=== PATIENT | female | born 1950 | race American Indian/Alaskan Native ===

== ENCOUNTER 2016-02-18 05:19 | Emergency (ER) | payer MEDICARE ==
[2016-02-18 06:36] LABS: Eosinophils % (Auto) 1.9 % (0.0-4.3); Hematocrit 33.4 % (30.3-42.9); Hemoglobin 10.2 gm/dl (10.1-14.3); Mean Corpuscular HGB Conc 31 % (30-34); Mean Corpuscular Hemoglobin 27 pg (28-32); Mean Corpuscular Volume 90 fl (79-97); Platelet Count 117 K/mm3 (140-440); Red Blood Count 3.73 M/mm3 (3.65-5.03); White Blood Count 4.6 K/mm3 (4.5-11.0)
[2016-02-18 06:52] LABS: BUN/Creatinine Ratio 6.14; Calcium 9.5 mg/dL (8.4-10.2); Chloride 94.1 mmol/L (98-107); Potassium 4.6 mmol/L (3.6-5.0)
[2016-02-18] MEDS ORDERED: NITROSTAT SL PRN (09:23)
[2016-02-18] MEDS ORDERED: SODIUM CHLORIDE FLUSH SYRINGE 10 ML IV PRN (09:23)
[2016-02-18] MEDS ORDERED: LASIX IV ONE (09:33)
[2016-02-18] MEDS ORDERED: SUBLIMAZE IV ONE (09:33)
--- NOTE | 2016-02-18 09:45 | XRay Report ---
CHEST 2 VIEWS: INDICATION: Shortness of breath. COMPARISON: 12/03/2015 FINDINGS: PA and lateral chest radiographs again demonstrate moderate cardiomegaly. Slight aortic knob microcalcifications. Well-expanded lungs, though slight costophrenic angle blunting again not excluded for pleural thickening versus minimal fluid. No large pleural effusions or CHF, however. Possible osteopenia. CONCLUSION: No significant interval change in cardiomegaly and few other incidental findings, as above. Thank you for the opportunity to participate in this patient's care.
[2016-02-18] MEDS ORDERED: BABY ASPIRIN PO ONE (10:31)
--- NOTE | 2016-02-18 10:31 | Emergency Department Report ---
HPI - General Chief Complaint: Dyspnea/Respdistress Time Seen by Provider: 02/18/16 08:35 - HPI HPI: The patient is a 65-year-old female with a history of end-stage renal disease, who presents for evaluation of chest pain and shortness of breath. The patient reports sudden onset of midsternal chest pain at 4 AM this morning, 4 hours prior to my evaluation. She states that her chest pain has been constant since onset, currently 8 out of 10 in severity, pressure-like in quality, and associated with moderate to severe constant shortness of breath. She has a secondary complaint of bilateral lower leg swelling which was present prior to chest pain and shortness of breath. The patient denies fever, syncope, hemoptysis, unilateral leg swelling, recent immobilization, history of DVT or PE , hx cancer. ED Past Medical Hx - Past Medical History Hx Hypertension: Yes Hx Heart Attack/AMI: No Hx Congestive Heart Failure: Yes Hx Diabetes: No Hx GERD: Yes Hx Liver Disease: Yes (abnormal liver function test, coagulopathy, mass on liver ) Hx Renal Disease: Yes (DIALYSIS MWF) Hx Arthritis: No Hx Asthma: No Hx COPD: No Hx HIV: Yes - Surgical History Hx Coronary Stent: No Hx Open Heart Surgery: No Hx Pacemaker: No Hx Internal Defibrillator: No Hx Cholecystectomy: No Hx Appendectomy: Yes Hx Breast Surgery: No Additional Surgical History: PD catheter. FISTULA LEFT ARM - Social History Smoking Status: Never Smoker Substance Use Type: None - Medications Home Medications: Home Medications Medication Instructions Recorded Confirmed Last Taken Type Promethazine [Phenergan TAB] 25 mg PO Q6H PRN 02/02/13 01/15/15 01/14/15 History lamiVUDine [Epivir] 0.5 tab PO QHS 02/02/13 01/15/15 01/14/15 History Pantoprazole [Protonix TAB] 40 mg PO BID #60 tablet 02/16/13 01/15/15 01/14/15 Rx Meclizine [Antivert] 25 mg PO TID PRN #20 tablet 09/03/13 01/15/15 01/14/15 Rx Furosemide 80 mg PO DAILY 06/09/14 01/15/15 01/14/15 History Efavirenz [Sustiva] 600 mg PO QHS capsule 11/02/14 01/15/15 01/14/15 Rx cloNIDine [Catapres] 0.3 mg PO Q6H tablet 11/02/14 01/15/15 01/14/15 Rx Labetalol [Normodyne TAB] 300 mg PO TID 30 Days 01/17/15 Unknown Rx NIFEdipine XL [Procardia Xl] 60 mg PO BID #60 tablet 01/17/15 Unknown Rx Terazosin [Hytrin] 5 mg PO BID #60 capsule 01/17/15 Unknown Rx ED Review of Systems ROS: Stated complaint: SOB/CHEST PAIN/SWOLLEN ANKLES Other details as noted in HPI Constitutional: denies: fever ENT: denies: throat or neck pain Respiratory: denies: cough, report shortness of breath Cardiovascular: reports chest pain Endocrine: denies unexplained weight loss or gain Gastrointestinal: denies: abdominal pain, nausea Genitourinary: denies: dysuria Musculoskeletal: reports leg swelling Skin: denies: rash Neurological: denies: headache Hematological/Lymphatic: denies: easy bleeding or easy bruising Psych: denies sadness or hopelessness Physical Exam - Physical Exam Vital Signs: Vital Signs 02/18/16 02/18/16 02/18/16 06:03 09:05 09:10 Temperature 98.3 F Pulse Rate 112 H 102 H Respiratory 20 16 18 Rate Blood Pressure 169/88 Blood Pressure 161/82 [Left] O2 Sat by Pulse 100 97 102 H Oximetry Physical Exam: General: well-nourished, well-developed, no acute distress Head: Normocephalic, atraumatic Eyes: normal sclera ENT: Mucous membranes are pink and moist Neck: trachea midline, neck supple, No neck stiffness, no cervical adenopathy Respiratory: Breath sounds equal bilaterally, no wheezing, rales, or rhonchi Cardio: S1 and S2 present, no murmurs, rubs, gallops, capillary refill is brisk Abdomen: Normoactive bowel sounds, soft abdomen, no rigidity, no guarding or rebound tenderness Chest WALL/Back: No tenderness to palpation of the chest wall, no CVA tenderness with percussion Musc: 1+ bilateral leg pitting edema Skin: No rash Neuro: no facial drooping, normal speech Psych: Normal affect ED Course Vital Signs 02/18/16 02/18/16 02/18/16 06:03 09:05 09:10 Temperature 98.3 F Pulse Rate 112 H 102 H Respiratory 20 16 18 Rate Blood Pressure 169/88 Blood Pressure 161/82 [Left] O2 Sat by Pulse 100 97 102 H Oximetry ED Medical Decision Making - Lab Data Result diagrams: 02/18/16 06:18 02/18/16 06:18 - Medical Decision Making The patient was seen and examined by myself. The patient is placed on a front desk monitor and continuous pulse ox. On initial evaluation, the patient was found to be in no distress. Evaluation orders were placed. EKG was negative for ST elevation or other findings suggestive of acute cardiac infarct. The patient is given IV fentanyl for pain. X-ray of the chest reveals cardio megaly and otherwise is grossly unchanged from previous x-ray. The patient given IV Lasix for leg swelling. Lab results reveal elevated troponin of 0.06, and elevated creatinine of 7, and otherwise labs are unrevealing. The on-call hospitalist service was contacted. They agreed to admit the patient for further treatment and close monitoring. The ED admit order was placed. The patient was admitted in guarded condition. Critical care attestation.: If time is entered above; I have spent that time in minutes in the direct care of this critically ill patient, excluding procedure time. ED Disposition Clinical Impression: Acute chest pain, ESRD (end stage renal disease), Elevated troponin I level Disposition: OP ADMITTED IP TO THIS HOSP Is pt being admited?: Yes Does the pt Need Aspirin: Yes Condition: Stable Instructions: Chest Pain (ED) Referrals: LUIS JACKSON MD [Primary Care Provider] - 3-5 Days Time of Disposition: 08:58
[2016-02-18] MEDS ORDERED: LEXISCAN IV ONE ×2 (10:58→10:59)
[2016-02-18 11:10] LABS: Creatine Kinase MB 1.8 ng/mL (0.0-4.0)
--- NOTE | 2016-02-18 11:30 | Admit Criteria Form ---
Admission Criteria Documentation: CHEST PAIN Clinical Indications for Admission to Inpatient Care (Place 'X' for any and all applicable criteria): Admission is indicated for chest pain and ANY ONE of the following(1)(2)(3)(4)(5 ): [ ]I. Angina with acute coronary syndrome (Also use Myocardial Infarction or Angina guideline) [ ]II. Hemodynamic instability [ X]III. Angina needing acute intervention as indicated by ALL of the following (11)(12): [X ]a) Unstable angina is present as indicated by angina that is ANY ONE of the following: [ ]i) New onset [ ]ii) Nocturnal [ ]iii) Prolonged at rest [X ]iv) Progressive [X ]b) Angina warrants acute intervention as indicated by ANY ONE of the following: [ ]i) Recurrent angina (e.g, not responding as previously to treatment) [ ]ii) Angina at rest or with low-level activities despite initial medical therapy [ ]iii) New or presumably new ST-segment depression on ECG [ ]iv) Signs or symptoms of heart failure (eg, dyspnea, pulmonary edema) [ ]v) New or worsening mitral regurgitation [ ]vi) Hemodynamic instability [ ]vii) Dangerous arrhythmia (eg, sustained ventricular tachycardia) [ ]viii) History of percutaneous coronary intervention within 6 months [ ]ix) History of coronary artery bypass graft surgery [ ]x) RYAN risk score of 2 or greater[A] [ ]xi) History of Diabetes(14) [ ]xii) High-risk cardiac ischemia findings on noninvasive testing (e.g, echocardiogram, treadmill testing, nuclear scan) [X ]xiii) Chronic renal insufficiency (ie, estimated GFR less than 60 mL/min/1.732m) [ ]xiv) Left ventricular ejection fraction less than 40% [ ]IV. Evidence of ND (eg, cardiac biomarkers positive, ST-segment elevation on ECG) also use Myocardial Infarction Criteria Form. [ ]V. Pulmonary edema [ ]. Respiratory distress [ ]VII. Chest pain indicative of serious diagnosis other than coronary artery disease (eg, aortic dissection) [ ]VIII. Contraindications and/or Inappropriate clinical situations for Observational Care in patients with Chest Pain, when ANY ONE of the following is required: [ ]a) Patient with risk factor for pulmonary embolism, acute coronary syndrome and myocardial infarction (18) [ ]b) Patient with Pulmonary embolism require an average LOS of 4.3 days, therefore emergency department observation management is inappropriate 18,23 [ ]c) Painful condition/s in the elderly, have the highest rate of recidivism after emergency department observation management (10.8%) 20,21,22 [ ]d) Elevated cardiac biomarker requires intensive and exhaustive care (19) [xX ]IX. General contraindications and/or Inappropriate clinical situations for Observational Care in patients with Chest Pain, when ANY ONE of the following is required: [xX]a) Prediction of prolongation of LOS based on ANY ONE of the following may be considered as a contraindication for observational care 2, 3, 4, 5, 6, 7, 8, 9, 10, 11 [X ]i) Age > 65 yrs. [ ]ii) Patient arriving by ambulance [ ]iii) Patient with high acuity [ ]iv) Patient requiring vital sign monitoring [ ]v) Patient on IV medication [ ]b) Systolic blood pressures 180mmHg 3,12 [ ]c) Patient with altered mental status including delirium and other alteration of consciousness, (3) [ ]d) Patient whose discharge disposition will be to a jail home or rehabilitation home should not be managed in Emergency Department Observation Unit. CMS rule requires 3 days hospital stay before such placement. 3,13 [ ]e) Patient with failure to thrive due to broad array of etiologies 3,16,17 [ ]f) Inability to ambulate 3,14 Extended stay beyond goal length of stay may be needed for (1)(28): [ ]a) Specific condition diagnosed after evaluation (eg, pulmonary embolism, aortic dissection) [ ]b) Unstable angina [ ]c) Continued suspicion of acute coronary syndrome with inability to complete needed cardiac evaluation (eg, patient clinically unable to undergo stress testing) [ ]d) Myocardial infarction (Contents from ANGINA and CHEST PAIN clinical indications for admission to inpatient care have been integrated in this form) The original [employer] content created by [employer] has been revised. The portions of the content which have been revised are identified through the use of italic text or in bold, and [employer] has neither reviewed nor approved the modified material. All other unmodified content is copyright [facility]. Please see references footnoted in the original [employer] [facility] edition 2016 Admission Criteria Met: Yes
--- NOTE | 2016-02-18 13:14 | History and Physical Report ---
History of Present Illness Date of examination: 02/18/16 Date of admission: 02/18/16 Chief complaint: Chest pain or shortness of breath History of present illness: Patient is a 65-year-old female with history of cardiomyopathy EF 40-45%, hypertension, end-stage renal disease on her way to dialysis this morning and experienced some midsternal chest discomfort. Although in the ER she stated a spell of 4 AM she actually tells me that he was on her way to dialysis which was much later than that. She stated that after having about 4 of belching exercise the pain went away. She did report some shortness of breath but she states that this has been going on for months. On his unchanged. Although with the chest pain she was anxious admitted to appear worse. She denied any palpitation she denied any nausea vomiting or diarrhea she denied any diaphoresis she denied any blurry vision or headache. She rated the pain 8/10 in intensity she stated at first. Pressure-like with no aggravating factor but I dictated by belching. She had a stress test in 2014 which was unremarkable. She unfortunately has not been following up with cardiology as recommended. ROS Constitutional: No fever, fatigue or weight loss. Skin: No rash. Eyes: No recent vision problems or eye pain. ENT: No congestion, ear pain, or sore throat. Endocrine: No thyroid problems. Cardiovascular: Chest pain. Respiratory: shortness of breath but No cough, congestion, or wheezing. Gastrointestinal: No abdominal pain, nausea, vomiting, or diarrhea. Genitourinary: No dysuria. Musculoskeletal: No joint swelling. Neurologic: No seizures. Hematologic: No unusual bruising or bleeding. Psychiatric: No psychiatric problems, hallucinations or depression. All other systems reviewed and otherwise negative. Past History Past Medical History: arrhythmia, anemia (eyes pulses in all this weekend he), CAD, ESRD, HIV/AIDS, hypertension, other (PUD) Social history: no significant social history, full code Family history: no significant family history Medications and Allergies Allergies Allergy/AdvReac Type Severity Reaction Status Date / Time codeine Allergy HALLUCINATE Verified 12/03/15 11:09 hydralazine Allergy Vomiting Verified 12/03/15 11:09 Home Medications Medication Instructions Recorded Confirmed Last Taken Type Promethazine [Phenergan TAB] 25 mg PO Q6H PRN 02/02/13 01/15/15 01/14/15 History lamiVUDine [Epivir] 0.5 tab PO QHS 02/02/13 01/15/15 01/14/15 History Pantoprazole [Protonix TAB] 40 mg PO BID #60 tablet 02/16/13 01/15/15 01/14/15 Rx Meclizine [Antivert] 25 mg PO TID PRN #20 tablet 09/03/13 01/15/15 01/14/15 Rx Furosemide 80 mg PO DAILY 06/09/14 01/15/15 01/14/15 History Efavirenz [Sustiva] 600 mg PO QHS capsule 11/02/14 01/15/15 01/14/15 Rx cloNIDine [Catapres] 0.3 mg PO Q6H tablet 11/02/14 01/15/15 01/14/15 Rx Labetalol [Normodyne TAB] 300 mg PO TID 30 Days 01/17/15 Unknown Rx NIFEdipine XL [Procardia Xl] 60 mg PO BID #60 tablet 01/17/15 Unknown Rx Terazosin [Hytrin] 5 mg PO BID #60 capsule 01/17/15 Unknown Rx Active Meds: Active Medications Nitroglycerin (Nitrostat) 0.4 mg SL Q5M PRN PRN Reason: Chest Pain Sodium Chloride (Sodium Chloride Flush Syringe 10 Ml) 10 ml IV PRN PRN PRN Reason: LINE FLUSH Stop: 02/28/16 09:22 Exam - Physical Exam Narrative exam: VITAL SIGNS: Reviewed. GENERAL: The patient appeared well nourished and normally developed. Vital signs as documented. HEAD: No signs of head trauma. EYES: Pupils are equal. Extraocular motions intact. EARS: Hearing grossly intact. MOUTH: Oropharynx is normal. NECK: No adenopathy, no JVD. CHEST: Chest with clear breath sounds bilaterally. No wheezes, rales, or rhonchi. CARDIAC: Regular rate and rhythm. S1 and S2, without murmurs, gallops, or rubs. VASCULAR: No Edema. Peripheral pulses normal and equal in all extremities. ABDOMEN: Soft, without detectable tenderness. No sign of distention. No rebound or guarding, and no masses palpated. Bowel Sounds normal. MUSCULOSKELETAL: Good range of motion of all major joints. Extremities without clubbing, cyanosis or edema. NEUROLOGIC EXAM: Alert and oriented x 3. No focal sensory or strength deficits. Speech normal. Follows commands. PSYCHIATRIC: Mood normal. SKIN: No rash or lesions. - Constitutional Vitals: Temp Pulse Resp BP Pulse Ox 98.3 F 102 H 18 161/82 102 H 02/18/16 06:03 02/18/16 09:10 02/18/16 10:43 02/18/16 09:10 02/18/16 09:10 Results - Labs CBC & Chem 7: 02/18/16 06:18 02/18/16 06:18 Labs: Laboratory Last Values WBC 4.6 K/mm3 (4.5-11.0) 02/18/16 06:18 RBC 3.73 M/mm3 (3.65-5.03) 02/18/16 06:18 Hgb 10.2 gm/dl (10.1-14.3) 02/18/16 06:18 Hct 33.4 % (30.3-42.9) 02/18/16 06:18 MCV 90 fl (79-97) 02/18/16 06:18 MCH 27 pg (28-32) L 02/18/16 06:18 MCHC 31 % (30-34) 02/18/16 06:18 RDW 21.0 % (13.2-15.2) H 02/18/16 06:18 Plt Count 117 K/mm3 (140-440) L 02/18/16 06:18 Lymph % (Auto) 17.7 % (13.4-35.0) 02/18/16 06:18 [place] % (Auto) 7.0 % (0.0-7.3) 02/18/16 06:18 Eos % (Auto) 1.9 % (0.0-4.3) 02/18/16 06:18 Baso % (Auto) 1.0 % (0.0-1.8) 02/18/16 06:18 Lymph # 0.8 K/mm3 (1.2-5.4) L 02/18/16 06:18 [place] # 0.3 K/mm3 (0.0-0.8) 02/18/16 06:18 Eos # 0.1 K/mm3 (0.0-0.4) 02/18/16 06:18 Baso # 0.0 K/mm3 (0.0-0.1) 02/18/16 06:18 Seg Neutrophils % 72.4 % (40.0-70.0) H 02/18/16 06:18 Seg Neutrophils # 3.4 K/mm3 (1.8-7.7) 02/18/16 06:18 Sodium 142 mmol/L (137-145) 02/18/16 06:18 Potassium 4.6 mmol/L (3.6-5.0) 02/18/16 06:18 Chloride 94.1 mmol/L (98-107) L 02/18/16 06:18 Carbon Dioxide 30 mmol/L (22-30) 02/18/16 06:18 Anion Gap 23 mmol/L 02/18/16 06:18 BUN 43 mg/dL (7-17) H 02/18/16 06:18 Creatinine 7.0 mg/dL (0.7-1.2) H 02/18/16 06:18 Estimated GFR 7 ml/min 02/18/16 06:18 BUN/Creatinine Ratio 6.14 % 02/18/16 06:18 Glucose 114 mg/dL (65-100) H 02/18/16 06:18 Calcium 9.5 mg/dL (8.4-10.2) 02/18/16 06:18 Total Creatine Kinase 47 units/L (30-135) 02/18/16 09:46 CK-MB (CK-2) 1.8 ng/mL (0.0-4.0) 02/18/16 09:46 CK-MB (CK-2) Rel Index 3.8 (0-4) 02/18/16 09:46 Troponin T 0.074 ng/mL (0.00-0.029) H 02/18/16 10:33 NT-Pro-B Natriuret Pep 61488 pg/mL (0-900) H 02/18/16 09:46 Triglycerides 66 mg/dL (2-149) 02/18/16 06:18 Cholesterol 146 mg/dL (50-199) 02/18/16 06:18 LDL Cholesterol Direct 62 mg/dL (50-130) 02/18/16 06:18 HDL Cholesterol 71 mg/dL (40-59) H 02/18/16 06:18 Cholesterol/HDL Ratio 2.05 % 02/18/16 06:18 - Imaging and Cardiology EKG: image reviewed (normal sinus rhythm impression review) Chest x-ray: image reviewed (cardiomegaly, personal review) Assessment and Plan Assessment and plan: Patient is a 65-year-old female with history of cardiomyopathy EF 40-45%, hypertension, end-stage renal disease on her way to dialysis this morning and experienced some midsternal chest discomfort. Although in the ER she stated a spell of 4 AM she actually tells me that he was on her way to dialysis which was much later than that. She stated that after having about 4 of belching exercise the pain went away. She did report some shortness of breath but she states that this has been going on for months. On his unchanged. Although with the chest pain she was anxious admitted to appear worse. She denied any palpitation she denied any nausea vomiting or diarrhea she denied any diaphoresis she denied any blurry vision or headache. She rated the pain 8/10 in intensity she stated at first. Pressure-like with no aggravating factor but I dictated by belching. She had a stress test in 2014 which was unremarkable. She unfortunately has not been following up with cardiology as recommended. 1. Atypical chest pain- likely GERD 2. Acute on chronic dyspnea 3. Hypertension 4. HIV 5. Anemia of chronic disease 6. Chronically elevated troponin Plan * Considering patient's history and risk factors will obtain stress test this morning while continuing home medications stress test is negative we'll also check an echocardiogram to assure no change in EF. I've counseled the patient will need to follow up with cardiology appropriately if stress test is negative patient can be safely discharged home symptoms have resolved. * Discussed with Dr. Melissa it architecture consultant. * Nephrology consultation to assist with dialysis * DVT and GI prophylaxis Advance Directives: Yes Plan of care discussed with patient/family: Yes
[2016-02-18 13:21] LABS: Creatine Kinase MB 1.9 ng/mL (0.0-4.0)
--- NOTE | 2016-02-18 13:39 | Discharge Summary ---
Providers - Providers Date of Admission: 02/18/16 Date of discharge: 02/18/16 02/18/16 Consult to Cardiac Rehabilitation [CONS] Routine Reason For Exam: Phase I 02/18/16 09:28 Consult to Physician [CONS] Routine Consulting Provider: ARGELIA FRAIRE Reason For Exam: esrd on hd Primary care physician: LUIS EDDYSPOON Hospitalization Reason for admission: CHEST PAIN Condition: Stable Hospital course: Patient is a 65-year-old female with history of cardiomyopathy EF 40-45%, hypertension, end-stage renal disease on her way to dialysis this morning and experienced some midsternal chest discomfort. Although in the ER she stated a spell of 4 AM she actually tells me that he was on her way to dialysis which was much later than that. She stated that after having about 4 of belching exercise the pain went away. She did report some shortness of breath but she states that this has been going on for months. On his unchanged. Although with the chest pain she was anxious admitted to appear worse. She denied any palpitation she denied any nausea vomiting or diarrhea she denied any diaphoresis she denied any blurry vision or headache. She rated the pain 8/10 in intensity she stated at first. Pressure-like with no aggravating factor but alleviated by belching. She had a stress test in 2014 which was unremarkable. She unfortunately has not been following up with cardiology as recommended. Patient did come in and have a stress test done which was unremarkable echo was unchanged. She was dialyzed and discharge. She is to follow-up with cardiology she verbalizes understanding. 1. Atypical chest pain- likely GERD 2. Acute on chronic dyspnea 3. Hypertension 4. HIV 5. Anemia of chronic disease 6. Chronically elevated troponin Disposition: DISCHARGED TO HOME OR SELFCARE Time spent for discharge: 35 MINS Core Measure Documentation - Palliative Care Palliative Care/ Comfort Measures: Not Applicable - Core Measures Any of the following diagnoses?: none - VTE Discharge Requirements Deep Vein Thrombosis/Pulmonary Embolism Present on Admission: No Exam - Physical Exam Narrative exam: VITAL SIGNS: Reviewed. GENERAL: The patient appeared well nourished and normally developed. Vital signs as documented. HEAD: No signs of head trauma. EYES: Pupils are equal. Extraocular motions intact. EARS: Hearing grossly intact. MOUTH: Oropharynx is normal. NECK: No adenopathy, no JVD. CHEST: Chest with clear breath sounds bilaterally. No wheezes, rales, or rhonchi. CARDIAC: Regular rate and rhythm. S1 and S2, without murmurs, gallops, or rubs. VASCULAR: No Edema. Peripheral pulses normal and equal in all extremities. ABDOMEN: Soft, without detectable tenderness. No sign of distention. No rebound or guarding, and no masses palpated. Bowel Sounds normal. MUSCULOSKELETAL: Good range of motion of all major joints. Extremities without clubbing, cyanosis or edema. NEUROLOGIC EXAM: Alert and oriented x 3. No focal sensory or strength deficits. Speech normal. Follows commands. PSYCHIATRIC: Mood normal. SKIN: No rash or lesions. - Constitutional Vitals: Temp Pulse Resp BP Pulse Ox 98.3 F 102 H 18 161/82 102 H 02/18/16 06:03 02/18/16 09:10 02/18/16 10:43 02/18/16 09:10 02/18/16 09:10 Plan Activity: advance as tolerated, fall precautions Diet: renal Follow up with: ARIC RIOJAS MD [Staff Physician] - 3-5 Days LUIS JACKSON MD [Primary Care Provider] - 3-5 Days
[2016-02-18 14:55] LABS: Creatine Kinase MB 1.8 ng/mL (0.0-4.0)
--- NOTE | 2016-02-18 19:19 | Echocardiography Report ---
Transthoracic Echocardiogram Indication: Chest pain BP: 161/82 Conclusions *1. Mild LV dysfunction, EF 40-45%. *2. Severe conc LVH. *3. Dilated L and R atria. *4. Mild-moderate MR. *5. Moderate TR with severe pulm HTN. *6. Small-moderate pericardial effusion, no tamponade. *7. Linear echo density at the root/ascending aorta suggests possible prior aortic graft-clinical correlation recommended. *8. Transaortic gradient of 37/20 suggests mild , or may be due to prior aortic root surgery. Findings Left Ventricle: The left ventricular chamber size is mildly dilated. Severe concentric left ventricular hypertrophy is observed. Mild global hypokinesis of the left ventricle is observed. Global left ventricular systolic function is mild to moderately decreased. The estimated ejection fraction is 40-45%. Abnormal left ventricular diastolic function is observed. Left Atrium: The left atrium is moderate to severely dilated. Right Ventricle: The right ventricle is mildly dilated. The right ventricular global systolic function is mildly reduced. Right Atrium: The right atrium is moderately dilated. The interatrial septum appears normal. Aortic Valve: The aortic valve leaflets are mildly thickened. Mild aortic leaflet calcification is visualized. There is mild aortic regurgitation. There is mild aortic stenosis. The mean gradient of the aortic valve is 20 mmHg. The peak instantaneous gradient of the aortic valve is 37 mmHg. The aortic valve area, by VTI's, is calculated at 1.5 cm2. Mitral Valve: The mitral valve leaflets appear myxomatous. There is mitral annular calcification. The mitral valve leaflets are moderately thickened. There is mild to moderate mitral regurgitation. There is no evidence of mitral stenosis. Tricuspid Valve: The tricuspid valve leaflets are normal. There is moderate tricuspid regurgitation. The right ventricular systolic pressure is calculated at 72 mmHg. There is evidence of severe pulmonary hypertension. There is no tricuspid stenosis. Pulmonic Valve: The pulmonic valve appears normal. There is trace pulmonic regurgitation. There is no pulmonic stenosis. Pericardium: There is a small pericardial effusion. There is a circumferential pericardial effusion. Aorta: There is no dilatation of the aortic root. There is a prosthetic graft. There is a graft in the ascending aorta. Venous: The inferior vena cava is dilated. There is less than 50% respiratory change in the inferior vena cava dimension. Measurements Chambers MM Name Value Normal Range Ao root diameter (MM) 3.2 cm (2 - 3.7) LA dimension (AP) MM 5.1 cm (1.9 - 4) LA:Ao ratio (MM) 1.59 ratio - AV cusp separation (MM) 1.4 cm (1.5 - 2.6) Chambers 2D Name Value Normal Range RVIDd (AP) 2D 3.47 cm (0.9 - 2.6) IVSd (2D) 1.74 cm (0.6 - 1.1) LVPWd (2D) 1.75 cm (0.6 - 1.1) IVS:LVPW ratio (2D) 0.99 ratio - LVIDd (2D) 5.32 cm (3.7 - 5.6) LVIDs (2D) 3.61 cm (2 - 3.8) LV FS (Teichholz) (2D) 32.1 % - LV FS (cube) (2D) 32.1 % - LA dimension (AP) 2D 4.8 cm (1.9 - 4) Volumes/Mass Name Value Normal Range LA ESV SP 4CH (MOD) 87 ml - LA ESV SP 2CH (MOD) 95 ml - LA ESV BP (MOD) 96 ml - LA ESV BP (MOD) index 58.2 ml/m2 - LV EDV SP 4CH (MOD) 54 ml - LV ESV SP 4CH (MOD) 20 ml - EF SP 4CH (MOD) 63 % - LV EDV SP 2CH (MOD) 96 ml - LV ESV SP 2CH (MOD) 44 ml - EF SP 2CH (MOD) 54 % - Diastolic/Systolic Function Name Value Normal Range MV E-wave Vmax 1.8 m/sec - MV deceleration time 106 msec - LV septal e' Vmax 0.09 m/sec - LV lateral e' Vmax 0.09 m/sec - LV E:e' septal ratio 20.3 ratio - LV E:e' lateral ratio 19.8 ratio - Aortic Valve Name Value Normal Range AV VTI 49.1 cm - AV peak gradient 37 mmHg - AV mean gradient 20 mmHg - LVOT diameter 2 cm - LVOT VTI 25.8 cm - LVOT mean gradient 5 mmHg - SV LVOT 81 ml - ZEINA (continuity VTI) 1.5 cm2 - Mitral Valve Name Value Normal Range MV PHT 48 msec - MR Vmax 5.21 m/sec - MR VTI 152 cm - MVA (PHT) 4.58 cm2 - Tricuspid Valve Name Value Normal Range TR Vmax 3.77 m/sec - TR peak gradient 57 mmHg - RAP 15 mmHg - RVSP 72 mmHg - Pulmonic Valve/Qp:Qs Name Value Normal Range PV Vmax 1.67 m/sec - PV peak gradient 11 mmHg - MS end-diastolic Vmax 1.83 m/sec - PV acceleration time 102 msec -
--- NOTE | 2016-02-19 00:26 | Treadmill Report ---
ORDERING PHYSICIAN: Sae Spence M.D. FINDINGS: The left ventricular cavity is dilated. The left ventricular ejection fraction is measured at 34% with global hypokinesis noted on gated imaging. There is no scintigraphic evidence of myocardial ischemia. There is a nonspecific decrease in uptake noted in the anterior lateral and inferior wall. CONCLUSION: 1. No scintigraphic evidence of myocardial ischemia. 2. Nonspecific fixed defect noted in the anterior lateral and inferior wall that is likely due to the technical limitations or artifact. 3. Dilated and hypokinetic left ventricle with an ejection fraction measuring 34%. JOB# [id number] CORI/JUSTIN
[2016-02-19 08:57] VITALS: BP 216/89
== END 2016-02-18 17:23 | disposition home or self-care (01) ==
LOC: ED 05:19
DX: I12.0 Hypertensive chronic kidney disease with stage 5 chronic kidney disease or end stage renal disease (principal); N18.6 End stage renal disease; Z99.2 Dependence on renal dialysis; R07.9 Chest pain, unspecified; R79.89 Other specified abnormal findings of blood chemistry; K21.9 Gastro-esophageal reflux disease without esophagitis; Z21 Asymptomatic human immunodeficiency virus [HIV] infection status; Z90.49 Acquired absence of other specified parts of digestive tract
CPT/HCPCS: 36415; 71020; 78452; 80048; 80061; 82550; 82553; 83880; 84484; 85025; 93005; 93010; 93017; 93306; 96374; 96375; 99284; A9502; J1940; J2785; J3010

== ENCOUNTER 2016-03-18 09:06 | Emergency (ER) | payer MEDICARE ==
[2016-03-18 10:19] LABS: Basophils % (Auto) 1.2 % (0.0-1.8); Eosinophils % (Auto) 4.1 % (0.0-4.3); Hemoglobin 9.3 gm/dl (10.1-14.3); Mean Corpuscular HGB Conc 31 % (30-34); Mean Corpuscular Hemoglobin 26 pg (28-32); Mean Corpuscular Volume 85 fl (79-97); Platelet Count 142 K/mm3 (140-440); Red Blood Count 3.53 M/mm3 (3.65-5.03); Red Cell Distribution Width 18.9 % (13.2-15.2); White Blood Count 7.4 K/mm3 (4.5-11.0)
[2016-03-18 10:32] LABS: INR 1.56 (0.87-1.13)
[2016-03-18 10:33] LABS: Partial Thromboplastin Time 37.8 Sec. (24.2-36.6)
[2016-03-18 10:35] LABS: BUN/Creatinine Ratio 3.88; Calcium 9.2 mg/dL (8.4-10.2); Chloride 92.2 mmol/L (98-107); Potassium 3.8 mmol/L (3.6-5.0)
[2016-03-18 10:37] LABS: Alanine Aminotransferase 7 units/L (7-56); Albumin 3.6 g/dL (3.9-5); Alkaline Phosphatase 83 units/L (35-129); Bilirubin,Total 0.5 mg/dL (0.1-1.2); Total Protein 7.3 g/dL (6.3-8.2)
[2016-03-18 10:43] LABS: Bilirubin,Direct < 0.2 mg/dL (0-0.2); Bilirubin,Indirect 0.3 mg/dL
[2016-03-18] MEDS ORDERED: ZOFRAN ODT PO ONE (11:20)
[2016-03-18] MEDS ORDERED: MORPHINE IM ONE (11:20)
[2016-03-18] MEDS ORDERED: NORMODYNE IV ONE ×3 (11:27→15:21)
[2016-03-18] MEDS ORDERED: SUBLIMAZE IV ONE (11:27)
--- NOTE | 2016-03-18 11:44 | Emergency Department Report ---
HPI - General Chief Complaint: Chest Pain Time Seen by Provider: 03/18/16 10:52 - HPI HPI: The patient is a 65-year-old female presents for evaluation of chest pain. The patient reports chest pain since yesterday at noon, nearly 24 hours ago, left- sided in location, sharp in quality, elicited with coughing, radiating to the left axilla, exacerbated with movement of the left chest or left arm, and relieved by rest. She also reports associated worsening of chronic shortness of breath, also for the past 2-3 days, increased with exertion, and worsened with coughing. The patient denies fever, syncope, hemoptysis, unilateral leg swelling, recent immobilization, history of DVT or PE, hx cancer. ED Past Medical Hx - Past Medical History Hx Hypertension: Yes Hx Heart Attack/AMI: No Hx Congestive Heart Failure: Yes Hx Diabetes: No Hx GERD: Yes Hx Liver Disease: Yes (abnormal liver function test, coagulopathy, mass on liver ) Hx Renal Disease: Yes (DIALYSIS MWF) Hx Arthritis: No Hx Asthma: No Hx COPD: No Hx HIV: Yes - Surgical History Hx Coronary Stent: No Hx Open Heart Surgery: No Hx Pacemaker: No Hx Internal Defibrillator: No Hx Cholecystectomy: No Hx Appendectomy: Yes Hx Breast Surgery: No Additional Surgical History: PD catheter. FISTULA LEFT ARM - Social History Smoking Status: Former Smoker Substance Use Type: None - Medications Home Medications: Home Medications Medication Instructions Recorded Confirmed Last Taken Type lamiVUDine [Epivir] 0.5 tab PO QHS 02/02/13 03/18/16 03/18/16 History Meclizine [Antivert] 25 mg PO TID PRN #20 tablet 09/03/13 03/18/16 03/18/16 Rx Efavirenz [Sustiva] 600 mg PO QHS capsule 11/02/14 03/18/16 03/17/16 Rx NIFEdipine XL [Procardia Xl] 60 mg PO BID #60 tablet 01/17/15 03/18/16 03/18/16 Rx Aspirin [Aspirin BABY CHEW TAB] 162 mg PO QDAY 03/18/16 03/18/16 03/17/16 History Cyclobenzaprine HCl [Flexeril 5 MG 5 mg PO Q8HR PRN #10 tab 03/18/16 Unknown Rx TAB] Efavirenz [Sustiva] 600 mg PO DAILY 03/18/16 03/18/16 03/17/16 History Labetalol [Normodyne TAB] 200 mg PO BID 03/18/16 03/18/16 03/17/16 History Minoxidil [Loniten] 10 mg PO QDAY 03/18/16 03/18/16 03/17/16 History Multivitamin Tab [Multiple Vitamin 1 each PO QDAY 03/18/16 03/18/16 03/17/16 History TAB (Theragran)] Terazosin [Hytrin] 10 mg PO BID 03/18/16 03/18/16 03/17/16 History cloNIDine [Catapres] 0.2 mg PO QID 03/18/16 03/18/16 03/17/16 History ED Review of Systems ROS: Stated complaint: MINOR CHEST PAINS/SOB/WEAKNESS Other details as noted in HPI Constitutional: denies: fever ENT: denies: throat or neck pain Respiratory: reports cough, shortness of breath Cardiovascular: reports chest pain Endocrine: denies unexplained weight loss or gain Gastrointestinal: denies: abdominal pain, nausea Genitourinary: denies: dysuria Musculoskeletal: denies: leg swelling Skin: denies: rash Neurological: denies: headache Hematological/Lymphatic: denies: easy bleeding or easy bruising Psych: denies sadness or hopelessness Physical Exam - Physical Exam Vital Signs: Vital Signs 03/18/16 03/18/16 09:25 10:37 Temperature 98.9 F Pulse Rate 88 76 Respiratory 20 19 Rate Blood Pressure 212/109 O2 Sat by Pulse 94 100 Oximetry Physical Exam: General: well-nourished, well-developed, no acute distress Head: Normocephalic, atraumatic Eyes: normal sclera ENT: Mucous membranes are pink and moist Neck: trachea midline, neck supple, No neck stiffness, no cervical adenopathy Respiratory: Breath sounds equal bilaterally, no wheezing, rales, or rhonchi Cardio: S1 and S2 present, no murmurs, rubs, gallops, capillary refill is brisk Abdomen: Normoactive bowel sounds, soft abdomen, no rigidity, no guarding or rebound tenderness Chest WALL/Back: tenderness to palpation of the left lower chest wall present, no CVA tenderness with percussion Musc: No pitting edema Skin: No rash Neuro: no facial drooping, normal speech Psych: Normal affect ED Course Vital Signs 03/18/16 03/18/16 09:25 10:37 Temperature 98.9 F Pulse Rate 88 76 Respiratory 20 19 Rate Blood Pressure 212/109 O2 Sat by Pulse 94 100 Oximetry ED Medical Decision Making - Lab Data Result diagrams: 03/18/16 09:56 03/18/16 09:56 - Medical Decision Making The patient was seen and examined by myself. The patient is placed on a cordwood cutter helper and continuous pulse ox. On initial evaluation, the patient was found to be in no distress. EKG was negative for findings suggestive of acute cardiac infarct. Labs and imaging are obtained. The patient is given a tablet of nitroglycerin, and IV fentanyl for pain, and IV labetalol for elevated blood pressure. Chest x-ray is negative for pneumothorax, focal consolidation, pulmonary vascular congestion, pleural effusion, or other obvious acute cardiopulmonary disease process. Lab results revealed mildly elevated level of troponin, .08, and elevated creatinine of 5, consistent with known history of end-stage renal disease and chronically mildly elevated troponin, and otherwise labs were non-concerning including levels WBC, hemoglobin, hematocrit, electrolytes, renal function. Medical records are reviewed and revealed that the patient received a stress test within the past 30 days which was unremarkable. The patient was reevaluated and reported that their symptoms were improved, although blood pressure remained increased. The patient is given a second IV dose of labetalol. On reexamination the patient's blood pressure was found to decrease outside of range concerning for hypertensive emergency. The patient is stable for discharge with outpatient follow-up. The patient is given follow-up and return instructions. The patient expressed understanding and agreed with the plan. The patient is discharged in stable condition. Critical care attestation.: If time is entered above; I have spent that time in minutes in the direct care of this critically ill patient, excluding procedure time. ED Disposition Clinical Impression: ESRD (end stage renal disease), Hypertensive urgency, Acute chest pain Disposition: DISCHARGED TO HOME OR SELFCARE Is pt being admited?: No Does the pt Need Aspirin: No Condition: Stable Instructions: Chest Pain (ED) Referrals: BRIAN DÍAZ MD [Primary Care Provider] - 3-5 Days Time of Disposition: 11:28
--- NOTE | 2016-03-18 12:43 | XRay Report ---
PORTABLE CHEST INDICATION: Chest pain. COMPARISON: 02/18/2016 FINDINGS: Portable, frontal chest radiograph now demonstrates increased interstitial congestive prominence/markings and small possible pleural effusions. Mild to moderate cardiomegaly again noted as also slight aortic knob calcifications. EKG leads. Stable bones. CONCLUSION: New mild CHF and stable cardiomegaly, as described. Please correlate. Thank you for the opportunity to participate in this patient's care.
[2016-03-18] MEDS ORDERED: NITROSTAT SL ONE (12:53)
--- NOTE | 2016-03-18 13:58 | Admit Criteria Form ---
Admission Criteria Documentation: HYPERTENSION Clinical Indications for Admission to Inpatient Care ( Place "X" for any and all applicable criteria): Admission is indicated for ANY ONE of the following(1)(2)(3)(4): [ ]I. Hypertensive emergency, with evidence of acute and progressing target organ disease as indicated by ANY ONE of the following: [ ]a) Hypertensive encephalopathy (eg, confusion, altered mental status) [ ]b) Cerebral infarction [ ]c) Intracranial hemorrhage [ ]d) Myocardial ischemia or infarction [ ]e) Pulmonary edema [ ]f) Aortic dissection [ ]g) Seizure [ ]h) Acute renal insufficiency [ ]i) Papilledema [ ]j) Microangiopathic hemolytic anemia [ ]II. Adrenergic crisis (eg, severe hypertension due to pheochromocytoma crisis, cocaine or amphetamine intoxication, or clonidine withdrawal) [ X]III. Severe hypertension (SBP greater than 180 mmHg or DBP greater than 110 mmHg or greater than the 95th percentile for age, gender, and height in pediatric patients) that cannot be controlled (eg, to SBP less than 160 mmHg and DBP less than 100 mmHg in adults) by treatment with oral medication in emergency department or observation care Extended stay beyond goal length of stay may be needed for(11)(12)(13): [ ]a) Persistent hypertensive encephalopathy [ ]b) Continuation of pulmonary edema [ ]c) Recurring or persistent severe hypertension [ ]d) Target organ damage (eg, angina, stroke, aortic dissection) [ ]e) Associated renal insufficiency The original [employer] content created by [employer] has been revised. The portions of the content which have been revised are identified through the use of italic text or in bold, and [facility] has neither reviewed nor approved the modified material. All other unmodified content is copyright [employer]. Please see references footnoted in the original [employer] edition 2016
[2016-03-18] MEDS ORDERED: VALIUM IV ONE (15:21)
[2016-03-18] MEDS ORDERED: APRESOLINE IV ONE (15:23)
[2016-03-18] MEDS ORDERED: ZOFRAN ONE (15:47)
[2016-03-18] MEDS ORDERED: ZOFRAN IV ONE (16:00)
[2016-03-18 17:59] VITALS: BP 240/156
== END 2016-03-18 17:15 | disposition home or self-care (01) ==
LOC: ED 09:06
DX: I12.0 Hypertensive chronic kidney disease with stage 5 chronic kidney disease or end stage renal disease (principal); N18.6 End stage renal disease; Z99.2 Dependence on renal dialysis; R07.9 Chest pain, unspecified; I50.9 Heart failure, unspecified; K21.9 Gastro-esophageal reflux disease without esophagitis; Z21 Asymptomatic human immunodeficiency virus [HIV] infection status; Z87.891 Personal history of nicotine dependence
CPT/HCPCS: 36415; 71010; 80048; 80061; 80074; 84484; 85025; 85610; 85730; 93005; 93010; 96374; 96375; 96376; 99285; J0360; J2405; J3010; J3360; Q0162

== ENCOUNTER 2016-08-30 15:59 | Inpatient (IN) | payer MEDICARE ==
[2016-08-30] MEDS ORDERED: NACL 0.9% 1000 ML 1,000 ML IV ONE (16:35)
[2016-08-30 17:17] LABS: INR 1.23 (0.87-1.13)
[2016-08-30 17:18] LABS: Partial Thromboplastin Time 30.9 Sec. (24.2-36.6)
[2016-08-30 17:18] LABS: Basophils % (Auto) 1.3 % (0.0-1.8); Eosinophils % (Auto) 1.9 % (0.0-4.3); Hematocrit 34.6 % (30.3-42.9); Hemoglobin 10.8 gm/dl (10.1-14.3); Mean Corpuscular HGB Conc 31 % (30-34); Mean Corpuscular Hemoglobin 27 pg (28-32); Mean Corpuscular Volume 86 fl (79-97); Platelet Count 120 K/mm3 (140-440); Red Cell Distribution Width 16.7 % (13.2-15.2); White Blood Count 4.8 K/mm3 (4.5-11.0)
[2016-08-30 17:39] LABS: Albumin 3.8 g/dL (3.9-5); Albumin/Globulin Ratio 1.1 %; BUN/Creatinine Ratio 4.63; Bilirubin,Total 0.2 mg/dL (0.1-1.2); Calcium 9.7 mg/dL (8.4-10.2); Chloride 91.2 mmol/L (98-107); Potassium 3.8 mmol/L (3.6-5.0); Total Protein 7.4 g/dL (6.3-8.2)
--- NOTE | 2016-08-30 17:58 | Emergency Department Report ---
HPI - General Chief Complaint: GI Bleed Time Seen by Provider: 08/30/16 16:38 - HPI HPI: 65-year-old -[place] female presented to ED with bright red blood per rectum. Patient stated she has been obstipated for the past 3 days. Today had a large bowel movement mostly bloody. She had to wear padding and underwear to keep the blood from leaking out. No fever no chills mild epigastric, no pain radiating to left lower quadrant. Patient does say history of diverticular bleed. Patient is a dialysis patient states compliant with her regimen. ED Past Medical Hx - Past Medical History Hx Hypertension: Yes Hx Heart Attack/AMI: No Hx Congestive Heart Failure: Yes Hx Diabetes: No Hx GERD: Yes Hx Liver Disease: Yes (abnormal liver function test, coagulopathy, mass on liver ) Hx Renal Disease: Yes (DIALYSIS MWF) Hx Arthritis: No Hx Asthma: No Hx COPD: No Hx HIV: Yes - Surgical History Hx Coronary Stent: No Hx Open Heart Surgery: No Hx Pacemaker: No Hx Internal Defibrillator: No Hx Cholecystectomy: No Hx Appendectomy: Yes Hx Breast Surgery: No Additional Surgical History: PD catheter -removed. FISTULA LEFT ARM - Social History Smoking Status: Never Smoker Substance Use Type: None - Medications Home Medications: Home Medications Medication Instructions Recorded Confirmed Last Taken Type Aspirin [Aspirin BABY CHEW TAB] 162 mg PO QDAY 03/18/16 08/30/16 06/23/16 History Efavirenz [Sustiva] 600 mg PO DAILY 03/18/16 08/30/16 06/23/16 History Minoxidil [Loniten] 10 mg PO QDAY 03/18/16 08/30/16 06/23/16 History Terazosin [Hytrin] 10 mg PO BID 03/18/16 08/30/16 06/23/16 History cloNIDine [Catapres] 0.2 mg PO QID 03/18/16 08/30/16 06/23/16 History Sulfamethoxazole/Trimethoprim 0.5 each PO Q24H #30 tablet 05/24/16 08/30/1611/30 Rx [Bactrim DS TAB] Lamivudine 1 tab PO QDAY 08/30/16 08/30/16 Unknown History Tenofovir [Viread] 300 mg PO QWEEK 08/30/16 08/30/16 Unknown History Vit B Cplx #11/FA/C/Biot/Zn Ox 1 tab PO QDAY 08/30/16 08/30/16 Unknown History [Dialyvite with Zinc Tablet] ED Review of Systems ROS: Stated complaint: RECTAL BLEED Other details as noted in HPI Comment: All other systems reviewed and negative Gastrointestinal: abdominal pain, nausea, hematochezia Neurological: weakness Psychiatric: anxiety Physical Exam - Physical Exam Physical Exam: Vitals reviewed Gen. alert and oriented 3 in no distress Head atraumatic normocephalic Eyes PERR LA EOMI Chest regular rate and rhythm normal S1-S2 lungs clear bilaterally Abdomen soft nondistended Back no point tenderness paravertebral tenderness Neuro no focal deficit. Psych normal mood. Rectal bright red blood at the vault pain with examination external hemorrhoids present that does not appearto be bleeding. ED Medical Decision Making - Lab Data Result diagrams: 08/30/16 16:49 08/30/16 16:49 Critical care attestation.: If time is entered above; I have spent that time in minutes in the direct care of this critically ill patient, excluding procedure time. ED Disposition Clinical Impression: Lower GI bleed Disposition: DC-09 OP ADMIT IP TO THIS HOSP Is pt being admited?: Yes Does the pt Need Aspirin: No Condition: Stable Referrals: PRIMARY CARE, [Primary Care Provider] - 3-5 Days Forms: Accompanied Note
--- NOTE | 2016-08-30 18:14 | Admit Criteria Form ---
Admission Criteria Documentation: GASTROINTESTINAL BLEEDING, LOWER Clinical Indications for Admission to Inpatient Care ( Place 'X' for any and all applicable criteria): Admission is indicated for ANY ONE of the following(1)(2)(3)(4)(5): [X ]I. Active gross bleeding per rectum [ ]II. Inpatient admission required rather than observation care (Also use Gastrointestinal Bleeding, Lower: Observation Care as appropriate) because of ANY ONE of the following: [ ]a) Hemodynamic instability that is severe or persistent [ ]b) Anemia requiring inpatient admission as indicated by ALL of the following: [ ]1) Presence of significant clinical finding indicated by ANY ONE of the following: [ ]A. Tachycardia for age [ ]B. Orthostatic vital sign changes [ ]C. Cognitive impairment [ ]D. Heart failure [ ]E. Chest pain [ ]F. Exertional dyspnea [ ]G. Other findings suggesting inadequate perfusion (eg, peripheral or myocardial ischemia, end organ dysfunction) [ ]2) Initial (eg, emergency department, observation care) treatment with transfusion or volume replacement is judged inappropriate (due to severity of the finding) or has been ineffective [ ]c) Severe pain requiring acute inpatient management [ ]d) Absent bowel sounds with complete ileus [ ]e) Signs of intestinal obstruction or peritonitis [A] [ ]f) High-risk low platelet count [ ]g) Severe electrolyte abnormalities requiring inpatient care [ ]h) Acute renal failure [ ]i) High fever or infection requiring inpatient admission as indicated by ANY ONE of the following(8)(9): [ ]1) Appropriate outpatient or observation care antimicrobial treatment unavailable, not effective, or not feasible Documented bacteremia [ ]2) Documented bacteremia [ ]3) Temperature greater than 104.9 degrees F ( 40.5 degrees C) (oral) [ ]4) Temperature greater than 103.1 degrees F ( 39.5 degrees C) (oral) or less than 96.8 degrees F (36 degrees C) (rectal) that does not respond to all emergency treatment measures [ ]j) IV fluid to replace significant ongoing losses ( greater than 3 L/m2 per day) [ ]k) Immediate inpatient surgery needed [ ]l) Parenteral nutrition regimen that must be implemented on inpatient basis [ ]m) Other condition, treatment or monitoring requiring inpatient admission [ ]III. Unstable comorbid illness (renal, hepatic, pulmonary, hematologic, neurologic, or cardiac) [ ]IV. Failure to control bleeding after colonoscopy [ ]V. Coagulopathy [ ]. Suspected or known ischemic colitis(6) [ ]VII. Previous aortic graft placement or known aortic aneurysm Extended stay beyond goal length of stay may be needed for(3)(4)(28): [ ]a) Emergency surgery [ ]b) Coagulation abnormalities(26) [ ]c) Recurrent or persistent bleeding, continued vital sign instability(27)( 28) [ ]d) Active comorbidities (eg, renal insufficiency, heart failure, pre- existing liver disease) The original [employer] content created by [employer] has been revised. The portions of the content which have been revised are identified through the use of italic text or in bold, and [facility] has neither reviewed nor approved the modified material. All other unmodified content is copyright [facility]. Please see references footnoted in the original [employer] edition 2016 Admission Criteria Met: Yes
[2016-08-30] MEDS ORDERED: DILAUDID IV ONE (20:28)
[2016-08-30] MEDS ORDERED: TYLENOL PO PRN (22:33)
[2016-08-30] MEDS ORDERED: ZOFRAN IV PRN (22:33)
[2016-08-30] MEDS ORDERED: APRESOLINE IV PRN (22:33)
[2016-08-30] MEDS ORDERED: DULCOLAX PR PRN (22:33)
[2016-08-30] MEDS ORDERED: MILK OF MAGNESIA PO PRN (22:33)
[2016-08-30] MEDS ORDERED: MORPHINE IV PRN (22:33)
[2016-08-30] MEDS ORDERED: PERCOCET 5/325 PO PRN (22:33)
--- NOTE | 2016-08-30 22:41 | History and Physical Report ---
History of Present Illness Date of examination: 08/30/16 Date of admission: 08/30/16 20:55 Chief complaint: Bright red blood per rectum History of present illness: 65-year-old past medical history of constipation for which she used to take stool softeners who presents with bright red blood per rectum, Past medical history also includes HIV, end-stage renal disease, hypertension. She states that she had been constipated for a few days. She has a stream and straining to get the stool out and after she strained, she felt that she had to either break the stool heart rate, push it out. She felt something, loose when she pushed out a bowel movement after which she started having profuse bleeding, she had just come home from dialysis when she went to go use the bathroom she states that she had lots of bright red blood in the toilet so one small clots. The bleeding seems to have stopped but it scared her prompting her to come to the hospitalist denies chest dizziness he denies shortness of breath. Denies previous episodes of bleeding per rectum but admits to having constipation and admits to having hemorrhoids but has not had this amount of bleeding in the past. She also states that she tends to bleed easily after dialysis today as she gets heparin on dialysis day, for example she states she had a dental procedure after dialysis and ended up having a lot of bleeding in her gums. She is also complaining of pain in her lower abdomen which he describes as dull , 6 out of 10, the pain started right around the same time as the bleeding. Past History Past Medical History: dialysis, ESRD (follows with Dr. Zambrano), HIV/AIDS ( follows with Dr. camarena), hypertension Past Surgical History: appendectomy, Other (AV grafts) Social history: no significant social history Family history: hypertension, other ([place]) Medications and Allergies Allergies Allergy/AdvReac Type Severity Reaction Status Date / Time codeine Allergy HALLUCINATE Verified 06/25/16 09:56 hydralazine AdvReac Vomiting Verified 06/25/16 09:56 Home Medications Medication Instructions Recorded Confirmed Last Taken Type Aspirin [Aspirin BABY CHEW TAB] 162 mg PO QDAY 03/18/16 08/30/16 06/23/16 History Efavirenz [Sustiva] 600 mg PO DAILY 03/18/16 08/30/16 06/23/16 History Minoxidil [Loniten] 10 mg PO QDAY 03/18/16 08/30/16 06/23/16 History Terazosin [Hytrin] 10 mg PO BID 03/18/16 08/30/16 06/23/16 History cloNIDine [Catapres] 0.2 mg PO QID 03/18/16 08/30/16 06/23/16 History Sulfamethoxazole/Trimethoprim 0.5 each PO Q24H #30 tablet 05/24/16 08/30/1611/30 Rx [Bactrim DS TAB] Lamivudine 1 tab PO QDAY 08/30/16 08/30/16 Unknown History Tenofovir [Viread] 300 mg PO QWEEK 08/30/16 08/30/16 Unknown History Vit B Cplx #11/FA/C/Biot/Zn Ox 1 tab PO QDAY 08/30/16 08/30/16 Unknown History [Dialyvite with Zinc Tablet] Active Meds: Active Medications Acetaminophen (Tylenol) 650 mg PO Q4H PRN PRN Reason: Pain MILD(1-3)/Fever >100.5/SAEED Bisacodyl (Dulcolax) 10 mg MO QDAY PRN PRN Reason: Constipation unrelieved by MOM Clonidine HCl (Catapres) 0.2 mg PO QID [facility] Hydralazine HCl (Apresoline) 10 mg IV Q4HR PRN PRN Reason: BP >160/100 Magnesium Hydroxide (Milk Of Magnesia) 30 ml PO Q4H PRN PRN Reason: Constipation Minoxidil (Loniten) 10 mg PO QDAY [facility] Miscellaneous Medication (Efavirenz [Sustiva]) 600 mg PO DAILY [facility] Miscellaneous Medication (Lamivudine) 1 tab PO QDAY [facility] Miscellaneous Medication (Terazosin) 10 mg PO BID [facility] Miscellaneous Medication (Vit B Cplx #11/Fa/C/Biot/Zn Ox [Dialyvite With Zinc Tablet]) 1 tab PO QDAY [facility] Morphine Sulfate (Morphine) 2 mg IV Q4H PRN PRN Reason: Pain, Moderate (4-6) Ondansetron HCl (Zofran) 4 mg IV Q8H PRN PRN Reason: N/V unrelieved by Reglan Oxycodone/Acetaminophen (Percocet 5/325) 1 tab PO Q6H PRN PRN Reason: Pain, Moderate (4-6) Tenofovir Disoproxil Fumarate (Viread) 300 mg PO QWEEK [facility] Trimethoprim/Sulfamethoxazole (Bactrim Ds) 0.5 each PO Q24H [facility] Review of Systems All systems: negative (as stated in HPI, 14 point review of systems otherwise negative) Exam - Constitutional Vitals: Temp Pulse Resp BP Pulse Ox 98.9 F 72 20 186/84 95 08/30/16 22:21 08/30/16 22:21 08/30/16 22:21 08/30/16 22:21 08/30/16 22:21 General appearance: Present: no acute distress, well-nourished - EENT Eyes: Present: PERRL ENT: hearing intact, clear oral mucosa - Neck Neck: Present: supple, normal ROM - Respiratory Respiratory effort: normal Respiratory: bilateral: CTA - Cardiovascular Heart Sounds: Present: S1 & S2. Absent: rub, click - Extremities Extremities: pulses symmetrical, No edema (AV graft in left upper extremity) Peripheral Pulses: within normal limits - Abdominal General gastrointestinal: Present: soft, non-tender, non-distended, normal bowel sounds Female genitourinary: Present: normal - Integumentary Integumentary: Present: clear, warm, dry - Musculoskeletal Musculoskeletal: gait normal, strength equal bilaterally - Psychiatric Psychiatric: appropriate mood/affect, intact judgment & insight - Neurologic Neurologic: CNII-XII intact, moves all extremities Results - Labs CBC & Chem 7: 08/30/16 16:49 08/30/16 16:49 Labs: Laboratory Last Values WBC 4.8 K/mm3 (4.5-11.0) 08/30/16 16:49 RBC 4.00 M/mm3 (3.65-5.03) 08/30/16 16:49 Hgb 10.8 gm/dl (10.1-14.3) 08/30/16 16:49 Hct 34.6 % (30.3-42.9) 08/30/16 16:49 MCV 86 fl (79-97) 08/30/16 16:49 MCH 27 pg (28-32) L 08/30/16 16:49 MCHC 31 % (30-34) 08/30/16 16:49 RDW 16.7 % (13.2-15.2) H 08/30/16 16:49 Plt Count 120 K/mm3 (140-440) L 08/30/16 16:49 Lymph % (Auto) 19.3 % (13.4-35.0) 08/30/16 16:49 [place] % (Auto) 6.8 % (0.0-7.3) 08/30/16 16:49 Eos % (Auto) 1.9 % (0.0-4.3) 08/30/16 16:49 Baso % (Auto) 1.3 % (0.0-1.8) 08/30/16 16:49 Lymph # 0.9 K/mm3 (1.2-5.4) L 08/30/16 16:49 [place] # 0.3 K/mm3 (0.0-0.8) 08/30/16 16:49 Eos # 0.1 K/mm3 (0.0-0.4) 08/30/16 16:49 Baso # 0.1 K/mm3 (0.0-0.1) 08/30/16 16:49 Seg Neutrophils % 70.7 % (40.0-70.0) H 08/30/16 16:49 Seg Neutrophils # 3.4 K/mm3 (1.8-7.7) 08/30/16 16:49 PT 15.4 Sec. (12.2-14.9) H 08/30/16 16:57 INR 1.23 (0.87-1.13) H 08/30/16 16:57 APTT 30.9 Sec. (24.2-36.6) 08/30/16 16:57 Sodium 135 mmol/L (137-145) L 08/30/16 16:49 Potassium 3.8 mmol/L (3.6-5.0) 08/30/16 16:49 Chloride 91.2 mmol/L (98-107) L 08/30/16 16:49 Carbon Dioxide 30 mmol/L (22-30) 08/30/16 16:49 Anion Gap 18 mmol/L 08/30/16 16:49 BUN 19 mg/dL (7-17) H 08/30/16 16:49 Creatinine 4.1 mg/dL (0.7-1.2) H 08/30/16 16:49 Estimated GFR 13 ml/min 08/30/16 16:49 BUN/Creatinine Ratio 4.63 % 08/30/16 16:49 Glucose 122 mg/dL (65-100) H 08/30/16 16:49 Calcium 9.7 mg/dL (8.4-10.2) 08/30/16 16:49 Total Bilirubin 0.20 mg/dL (0.1-1.2) 08/30/16 16:49 AST 21 units/L (5-40) 08/30/16 16:49 ALT 13 units/L (7-56) 08/30/16 16:49 Alkaline Phosphatase 129 units/L (35-129) 08/30/16 16:49 Total Protein 7.4 g/dL (6.3-8.2) 08/30/16 16:49 Albumin 3.8 g/dL (3.9-5) L 08/30/16 16:49 Albumin/Globulin Ratio 1.1 % 08/30/16 16:49 Lipase 41 units/L (13-60) 08/30/16 16:49 Blood Type B POSITIVE 08/30/16 16:49 Antibody Screen TNR 08/30/16 16:49 NISHI Antibody Screen Negative 08/30/16 16:49 - Imaging and Cardiology EKG: image reviewed (normal sinus rhythm at 60 beats per minutes) Assessment and Plan Assessment and plan: 65-year-old has medical history of HIV, end-stage renal disease, hypertension who presents to the hospital with bright red blood per rectum, hemoglobin is stable at her baseline of 10 Acute blood loss/ GI bleed Plan liquid diet for now, nothing by mouth after midnight GI consults, hold all blood thinners, hold aspirin Given acute abdominal pain, will obtain CT abdomen and pelvis with contrast End-stage renal disease Nephrology has been consulted, to continue dialysis on her normal schedule Tuesday Hypertensive urgency Resume home medications along with IV hydralazine as needed DVT prophylaxis SCDs in light of active bleeding VTE prophylaxis?: Mechanical Reason for no VTE Prophylaxis: Bleeding Plan of care discussed with patient/family: Yes
[2016-08-30] MEDS: MINIPRESS PO SCH (23:51)
[2016-08-31] MEDS ORDERED: BACTRIM DS PO SCH
[2016-08-31] MEDS ORDERED: MORPHINE PO PRN (00:26)
[2016-08-31 04:08] LABS: Eosinophils % (Auto) 1.9 % (0.0-4.3); Hemoglobin 10.7 gm/dl (10.1-14.3); Mean Corpuscular HGB Conc 31 % (30-34); Mean Corpuscular Hemoglobin 27 pg (28-32); Mean Corpuscular Volume 85 fl (79-97); Platelet Count 106 K/mm3 (140-440); Red Blood Count 3.98 M/mm3 (3.65-5.03); Red Cell Distribution Width 16.8 % (13.2-15.2); White Blood Count 4.4 K/mm3 (4.5-11.0)
[2016-08-31 04:26] LABS: Calcium 9.4 mg/dL (8.4-10.2); Potassium 3.9 mmol/L (3.6-5.0)
[2016-08-31] MEDS ORDERED: NITRO-BID 2% TP ONE (04:36)
[2016-08-31] MEDS: MINIPRESS PO SCH (09:15)
--- NOTE | 2016-08-31 09:27 | Progress Note ---
Assessment and Plan Assessment and plan: 65-year-old has medical history of HIV, end-stage renal disease, hypertension who presents to the hospital with bright red blood per rectum, hemoglobin is stable at her baseline of 10 Acute blood loss/ GI bleed Plan liquid diet for now, nothing by mouth after midnight GI consults, hold all blood thinners, hold aspirin Given acute abdominal pain, will obtain CT abdomen and pelvis with contrast End-stage renal disease Nephrology has been consulted, to continue dialysis on her normal schedule Tuesday Hypertensive urgency Resume home medications along with IV hydralazine as needed DVT prophylaxis SCDs in light of active bleeding Hospitalist Physical - Constitutional Vitals: Temp Pulse Resp BP Pulse Ox 98.1 F 80 12 182/84 98 08/31/16 09:08 08/31/16 09:15 08/31/16 09:08 08/31/16 09:15 08/31/16 09:08 General appearance: Present: no acute distress, well-nourished Results - Labs CBC & Chem 7: 08/31/16 03:52 08/31/16 03:52 Labs: Laboratory Last Values WBC 4.4 K/mm3 (4.5-11.0) L 08/31/16 03:52 RBC 3.98 M/mm3 (3.65-5.03) 08/31/16 03:52 Hgb 10.7 gm/dl (10.1-14.3) 08/31/16 03:52 Hct 34.0 % (30.3-42.9) 08/31/16 03:52 MCV 85 fl (79-97) 08/31/16 03:52 MCH 27 pg (28-32) L 08/31/16 03:52 MCHC 31 % (30-34) 08/31/16 03:52 RDW 16.8 % (13.2-15.2) H 08/31/16 03:52 Plt Count 106 K/mm3 (140-440) L 08/31/16 03:52 Lymph % (Auto) 25.7 % (13.4-35.0) 08/31/16 03:52 [place] % (Auto) 8.2 % (0.0-7.3) H 08/31/16 03:52 Eos % (Auto) 1.9 % (0.0-4.3) 08/31/16 03:52 Baso % (Auto) 1.0 % (0.0-1.8) 08/31/16 03:52 Lymph # 1.1 K/mm3 (1.2-5.4) L 08/31/16 03:52 [place] # 0.4 K/mm3 (0.0-0.8) 08/31/16 03:52 Eos # 0.1 K/mm3 (0.0-0.4) 08/31/16 03:52 Baso # 0.0 K/mm3 (0.0-0.1) 08/31/16 03:52 Seg Neutrophils % 63.2 % (40.0-70.0) 08/31/16 03:52 Seg Neutrophils # 2.8 K/mm3 (1.8-7.7) 08/31/16 03:52 PT 15.4 Sec. (12.2-14.9) H 08/30/16 16:57 INR 1.23 (0.87-1.13) H 08/30/16 16:57 APTT 30.9 Sec. (24.2-36.6) 08/30/16 16:57 Sodium 141 mmol/L (137-145) 08/31/16 03:52 Potassium 3.9 mmol/L (3.6-5.0) 08/31/16 03:52 Chloride 96.0 mmol/L (98-107) L 08/31/16 03:52 Carbon Dioxide 27 mmol/L (22-30) 08/31/16 03:52 Anion Gap 22 mmol/L 08/31/16 03:52 BUN 24 mg/dL (7-17) H 08/31/16 03:52 Creatinine 4.8 mg/dL (0.7-1.2) H 08/31/16 03:52 Estimated GFR 11 ml/min 08/31/16 03:52 BUN/Creatinine Ratio 5.00 % 08/31/16 03:52 Glucose 105 mg/dL (65-100) H 08/31/16 03:52 Calcium 9.4 mg/dL (8.4-10.2) 08/31/16 03:52 Total Bilirubin 0.20 mg/dL (0.1-1.2) 08/30/16 16:49 AST 21 units/L (5-40) 08/30/16 16:49 ALT 13 units/L (7-56) 08/30/16 16:49 Alkaline Phosphatase 129 units/L (35-129) 08/30/16 16:49 Total Protein 7.4 g/dL (6.3-8.2) 08/30/16 16:49 Albumin 3.8 g/dL (3.9-5) L 08/30/16 16:49 Albumin/Globulin Ratio 1.1 % 08/30/16 16:49 Lipase 41 units/L (13-60) 08/30/16 16:49 Blood Type B POSITIVE 08/30/16 16:49 Antibody Screen TNR 08/30/16 16:49 NISHI Antibody Screen Negative 08/30/16 16:49
--- NOTE | 2016-08-31 09:44 | Consultation ---
History of Present Illness - Reason for Consult Consult date: 08/31/16 end stage renal disease, accelerated hypertension Requesting physician: ARABELLA MACHADO - History of Present Illness 65-year-old past medical history of constipation for which she used to take stool softeners who presents with bright red blood per rectum, Past medical history also includes HIV, end-stage renal disease, hypertension. She states that she had been constipated for a few days. She has a stream and straining to get the stool out and after she strained, she felt that she had to either break the stool heart rate, push it out. She felt something, loose when she pushed out a bowel movement after which she started having profuse bleeding, she had just come home from dialysis when she went to go use the bathroom she states that she had lots of bright red blood in the toilet so one small clots. The bleeding seems to have stopped but it scared her prompting her to come to the hospitalist denies chest dizziness he denies shortness of breath. Denies previous episodes of bleeding per rectum but admits to having constipation and admits to having hemorrhoids but has not had this amount of bleeding in the past. She also states that she tends to bleed easily after dialysis today as she gets heparin on dialysis day, for example she states she had a dental procedure after dialysis and ended up having a lot of bleeding in her gums. She is also complaining of pain in her lower abdomen which he describes as dull , 6 out of 10, the pain started right around the same time as the bleeding. Past History Past Medical History: dialysis, ESRD (follows with Dr. Zambrano), HIV/AIDS ( follows with Dr. camarena), hypertension Past Surgical History: appendectomy, Other (AV grafts) Social history: full code. denies: prescription drug abuse Family history: hypertension, other ([place]) Medications and Allergies Allergies Allergy/AdvReac Type Severity Reaction Status Date / Time codeine Allergy HALLUCINATE Verified 06/25/16 09:56 hydralazine AdvReac Vomiting Verified 06/25/16 09:56 Home Medications Medication Instructions Recorded Confirmed Last Taken Type Aspirin [Aspirin BABY CHEW TAB] 162 mg PO QDAY 03/18/16 08/30/16 06/23/16 History Efavirenz [Sustiva] 600 mg PO DAILY 03/18/16 08/30/16 06/23/16 History Minoxidil [Loniten] 10 mg PO QDAY 03/18/16 08/30/16 06/23/16 History Terazosin [Hytrin] 10 mg PO BID 03/18/16 08/30/16 06/23/16 History cloNIDine [Catapres] 0.2 mg PO QID 03/18/16 08/30/16 06/23/16 History Sulfamethoxazole/Trimethoprim 0.5 each PO Q24H #30 tablet 05/24/16 08/30/1611/30 Rx [Bactrim DS TAB] Lamivudine 1 tab PO QDAY 08/30/16 08/30/16 Unknown History Tenofovir [Viread] 300 mg PO QWEEK 08/30/16 08/30/16 Unknown History Vit B Cplx #11/FA/C/Biot/Zn Ox 1 tab PO QDAY 08/30/16 08/30/16 Unknown History [Dialyvite with Zinc Tablet] Active Meds: Active Medications Acetaminophen (Tylenol) 650 mg PO Q4H PRN PRN Reason: Pain MILD(1-3)/Fever >100.5/SAEED Last Admin: 08/31/16 01:53 Dose: 650 mg Bisacodyl (Dulcolax) 10 mg [place] QDAY PRN PRN Reason: Constipation unrelieved by [facility] Clonidine HCl (Catapres) 0.3 mg PO BID [facility] Efavirenz (Sustiva) 600 mg PO HS [facility] Last Admin: 08/31/16 09:16 Dose: 600 mg Lamivudine (Epivir) 75 mg PO HS [facility] Magnesium Hydroxide (Milk Of Magnesia) 30 ml PO Q4H PRN PRN Reason: Constipation Minoxidil (Loniten) 10 mg PO QDAY [facility] Last Admin: 08/31/16 09:15 Dose: 10 mg Multivit/Ca Carb/B Cmplx/FA/Prenat (Renal Caps) 1 cap PO HS [facility] Nifedipine (Procardia Xl) 30 mg PO Q12HR [facility] Ondansetron HCl (Zofran) 4 mg IV Q8H PRN PRN Reason: N/V unrelieved by Reglan Prazosin HCl (Minipress) 5 mg PO Q12HR [facility] Last Admin: 08/31/16 09:15 Dose: 5 mg Tenofovir Disoproxil Fumarate (Viread) 300 mg PO Th [facility] Trimethoprim/Sulfamethoxazole (Bactrim Ds) 0.5 each PO Q24H [facility] Last Admin: 08/30/16 23:50 Dose: 0.5 each Review of Systems Constitutional: fatigue, weakness, malaise Gastrointestinal: abdominal pain, change in bowel habits, BRBPR, melena Exam - Vital Signs Vital signs: Vital Signs Temp Pulse Resp BP Pulse Ox 98.1 F 82 20 166/35 97 08/30/16 18:59 08/30/16 18:59 08/30/16 18:59 08/30/16 18:59 08/30/16 18:59 - Physical Exam Narrative exam: General appearance: Present: no acute distress, well-nourished - EENT Eyes: Present: PERRL ENT: hearing intact, clear oral mucosa - Neck Neck: Present: supple, normal ROM - Respiratory Respiratory effort: normal Respiratory: bilateral: CTA - Cardiovascular Heart Sounds: Present: S1 & S2. Absent: rub, click - Extremities Extremities: pulses symmetrical, No edema (AV graft in left upper extremity) Peripheral Pulses: within normal limits - Abdominal General gastrointestinal: Present: soft, non-tender, non-distended, normal bowel sounds Female genitourinary: Present: normal - Integumentary Integumentary: Present: clear, warm, dry - Musculoskeletal Musculoskeletal: gait normal, strength equal bilaterally - Psychiatric Psychiatric: appropriate mood/affect, intact judgment & insight - Neurologic Neurologic: CNII-XII intact, moves all extremities Results - Lab Results 08/31/16 03:52 08/31/16 03:52 Most recent lab results Calcium 9.4 mg/dL (8.4-10.2) 08/31/16 03:52 Assessment and Plan Impression: * esrd * anemia abl/poa * gi blood loss * htn * tachycardia * HIV Plan: * HD q MWF * prn prbcs, no heparin with hd * GI input needed * follow cbc/lytes * strict i/os * avoid nephrotoxins * uf with HD as tolerated * epogen with HD
[2016-08-31] MEDS ORDERED: EPIVIR PO SCH ×2 (10:00→22:00)
[2016-08-31] MEDS ORDERED: LONITEN PO SCH (10:00)
[2016-08-31] MEDS ORDERED: CATAPRES PO SCH ×4 (10:00→22:00)
[2016-08-31] MEDS ORDERED: PROCARDIA XL PO SCH (10:00)
[2016-08-31] MEDS ORDERED: Renal Caps PO SCH ×2 (10:00→22:00)
[2016-08-31] MEDS ORDERED: NACL 0.9% 100 ML IV PRN (11:00)
[2016-08-31] MEDS ORDERED: PROCRIT IV PRN (11:00)
[2016-08-31] MEDS ORDERED: DILAUDID IM PRN (11:00)
[2016-08-31] MEDS ORDERED: CATAPRES PO ONE (12:00)
[2016-08-31 12:03] VITALS: BP 183/86
--- NOTE | 2016-08-31 13:03 | Discharge Summary ---
Providers - Providers Date of Admission: 08/30/16 20:55 Attending physician: TRESA MARS MD 08/30/16 22:33 Consult to Physician [CONS] Routine Consulting Provider: DARBY JUAREZ Reason For Exam: esrd Place consult to:: jean Notified:: office Time called:: 09:33 08/30/16 22:35 Consult to Physician [CONS] Routine Consulting Provider: ARNAV ARNOLD Reason For Exam: GIB Place consult to:: gi Notified:: office Phone number called:: [phone] Was contact made?: Yes If yes, spoke with:: sada Time called:: 09:02 Primary care physician: [employer] Hospitalization Condition: Stable Hospital course: 65-year-old has medical history of HIV, end-stage renal disease, hypertension who presents to the hospital with bright red blood per rectum, hemoglobin is stable at her baseline of 10. She did not have any further episodes of bleeding while in hospital, the source was most likely thought to be hemorrhoidal bleeding because she has a history of hemorrhoids. Her serial hemoglobin were stable. She was continued on hemodialysis per nephrology. She did have elevated blood pressures differed she received IV blood pressure medications and meds were optimized. She was planned for GI evaluation, the patient felt better and wanted to go home, therefore she was advised to follow- up with gastrology as an outpatient. Discharge diagnoses Acute blood loss anemia GI bleed End-stage renal disease Hypertensive urgency Disposition: DC-01 TO HOME OR SELFCARE Time spent for discharge: 33 minutes Core Measure Documentation - Palliative Care Palliative Care/ Comfort Measures: Not Applicable - Core Measures Any of the following diagnoses?: none Exam - Constitutional Vitals: Temp Pulse Resp BP Pulse Ox 98.4 F 74 16 183/86 99 08/31/16 12:02 08/31/16 12:02 08/31/16 12:02 08/31/16 12:02 08/31/16 12:02 General appearance: Present: no acute distress, well-nourished - EENT Eyes: Present: PERRL ENT: hearing intact, clear oral mucosa - Neck Neck: Present: supple, normal ROM - Respiratory Respiratory effort: normal Respiratory: bilateral: CTA - Cardiovascular Heart Sounds: Present: S1 & S2. Absent: rub, click - Extremities Extremities: pulses symmetrical, No edema Peripheral Pulses: within normal limits - Abdominal General gastrointestinal: Present: soft, non-tender, non-distended, normal bowel sounds Female genitourinary: Present: normal - Integumentary Integumentary: Present: clear, warm, dry - Musculoskeletal Musculoskeletal: gait normal, strength equal bilaterally - Psychiatric Psychiatric: appropriate mood/affect, intact judgment & insight - Neurologic Neurologic: CNII-XII intact, moves all extremities Plan Follow up with: PRIMARY CAREMD [Primary Care Provider] - 3-5 Days LISSETH BUENROSTRO MD [Staff Physician] - 7 Days Forms: Accompanied Note Prescriptions: Aspirin EC [Aspirin Enteric Coated TAB] 81 mg PO QDAY #30 tablet. cloNIDine [Catapres] 0.3 mg PO BID #180 tablet NIFEdipine XL [Procardia Xl] 30 mg PO Q12HR #60 tablet Sulfamethoxazole/Trimethoprim [Bactrim DS TAB] 0.5 each PO Q24H #30 tablet
[2016-08-31] MEDS ORDERED: SUSTIVA PO SCH (22:00)
[2016-09-02] MEDS ORDERED: VIREAD PO SCH (22:00)
== END 2016-08-31 15:04 | disposition home or self-care (01) | DRG 377 ==
LOC: ED 15:59 → 4A 20:55
PROVIDERS: ADMIT Internal Medicine; ATTEND Internal Medicine
PROC: 5A1D00Z (ICD-10-PCS; principal; 2016-08-31)
DX: K92.2 Gastrointestinal hemorrhage, unspecified (principal); N18.6 End stage renal disease; B20 Human immunodeficiency virus [HIV] disease; I13.2 Hypertensive heart and chronic kidney disease with heart failure and with stage 5 chronic kidney disease, or end stage renal disease; D62 Acute posthemorrhagic anemia; I16.0 Hypertensive urgency; K21.9 Gastro-esophageal reflux disease without esophagitis; R00.0 Tachycardia, unspecified; Z88.5 Allergy status to narcotic agent; Z88.8 Allergy status to other drugs, medicaments and biological substances; Z90.49 Acquired absence of other specified parts of digestive tract; Z79.82 Long term (current) use of aspirin; Z99.2 Dependence on renal dialysis; Z82.49 Family history of ischemic heart disease and other diseases of the circulatory system; K64.9 Unspecified hemorrhoids
CPT/HCPCS: 36415; 80048; 80053; 82270; 83690; 85025; 85610; 85730; 86850; 86900; 86901; 93005; 93010; 96361; 96374; 99291; J1170; J7030

== ENCOUNTER 2017-07-27 10:14 | Emergency (ER) | payer MEDICARE ==
[2017-07-27 10:46] VITALS: BP 182/76
--- NOTE | 2017-07-27 12:01 | Emergency Department Report ---
ED General Adult HPI - General Chief complaint: Sore Throat Stated complaint: SORE THROAT Time Seen by Provider: 07/27/17 11:53 Source: patient Mode of arrival: Ambulatory Limitations: No Limitations - History of Present Illness Initial comments: Patient is a 66-year-old female past medical history of end-stage renal disease who is presenting with cough congestion sore throat and facial pain. Patient states symptoms started some sinus discomfort approximately week ago. Patient states that she has some soreness in the forehead and above the nose now she has a cough productive of clear to white sputum. Patient states she has some soreness in her throat. Patient states as a watery. Patient denies any fevers. Patient's does have a history of hypertension end-stage renal disease and just came from dialysis. - Related Data Home Medications Medication Instructions Recorded Confirmed Last Taken Efavirenz [Sustiva] 600 mg PO DAILY 03/18/16 08/30/16 06/23/16 Minoxidil [Loniten] 10 mg PO QDAY 03/18/16 08/30/16 06/23/16 Terazosin [Hytrin] 10 mg PO BID 03/18/16 08/30/16 06/23/16 B Complex 11/Folic/C/Biot/Zinc 1 tab PO QDAY 08/30/16 08/30/16 Unknown [Dialyvite with Zinc Tablet] Lamivudine 1 tab PO QDAY 08/30/16 08/30/16 Unknown Tenofovir [Viread] 300 mg PO QWEEK 08/30/16 08/30/16 Unknown Previous Rx's Medication Instructions Recorded Last Taken Type Aspirin EC [Aspirin Enteric Coated 81 mg PO QDAY #30 tablet. 08/31/16 Unknown Rx TAB] NIFEdipine XL [Procardia Xl] 30 mg PO Q12HR #60 tablet 08/31/16 Unknown Rx Sulfamethoxazole/Trimethoprim 0.5 each PO Q24H #30 tablet 08/31/16 Unknown Rx [Bactrim DS TAB] cloNIDine [Catapres] 0.3 mg PO BID #180 tablet 08/31/16 Unknown Rx ALBUTEROL Inhaler [ProAir HFA 2 puff IH QID PRN #1 inhalation 07/27/17 Unknown Rx Inhaler] Fluticasone [Flonase] 1 spray NS QDAY #1 bottle 07/27/17 Unknown Rx Nitrofurantoin Monohyd/M-Cryst 100 mg PO BID #14 capsule 07/27/17 Unknown Rx [Macrobid 100 mg Capsule] predniSONE [Deltasone] 20 mg PO QDAY #5 tab 07/27/17 Unknown Rx Allergies Allergy/AdvReac Type Severity Reaction Status Date / Time codeine Allergy HALLUCINATE Verified 06/25/16 09:56 hydralazine AdvReac Vomiting Verified 06/25/16 09:56 ED Review of Systems ROS: Stated complaint: SORE THROAT Other details as noted in HPI Comment: All other systems reviewed and negative ED Past Medical Hx - Past Medical History Hx Hypertension: Yes Hx Heart Attack/AMI: No Hx Congestive Heart Failure: Yes Hx Diabetes: No Hx GERD: Yes Hx Liver Disease: Yes (abnormal liver function test, coagulopathy, mass on liver ) Hx Renal Disease: Yes (DIALYSIS MWF) Hx Arthritis: No Hx Asthma: No Hx COPD: No Hx HIV: Yes - Surgical History Hx Coronary Stent: No Hx Open Heart Surgery: No Hx Pacemaker: No Hx Internal Defibrillator: No Hx Cholecystectomy: No Hx Appendectomy: Yes Hx Breast Surgery: No Additional Surgical History: PD catheter -removed. FISTULA LEFT ARM - Social History Smoking Status: Never Smoker Substance Use Type: None - Medications Home Medications: Home Medications Medication Instructions Recorded Confirmed Last Taken Type Efavirenz [Sustiva] 600 mg PO DAILY 03/18/16 08/30/16 06/23/16 History Minoxidil [Loniten] 10 mg PO QDAY 03/18/16 08/30/16 06/23/16 History Terazosin [Hytrin] 10 mg PO BID 03/18/16 08/30/16 06/23/16 History B Complex 11/Folic/C/Biot/Zinc 1 tab PO QDAY 08/30/16 08/30/16 Unknown History [Dialyvite with Zinc Tablet] Lamivudine 1 tab PO QDAY 08/30/16 08/30/16 Unknown History Tenofovir [Viread] 300 mg PO QWEEK 08/30/16 08/30/16 Unknown History Aspirin EC [Aspirin Enteric Coated 81 mg PO QDAY #30 tablet. 08/31/16 Unknown Rx TAB] NIFEdipine XL [Procardia Xl] 30 mg PO Q12HR #60 tablet 08/31/16 Unknown Rx Sulfamethoxazole/Trimethoprim 0.5 each PO Q24H #30 tablet 08/31/16 Unknown Rx [Bactrim DS TAB] cloNIDine [Catapres] 0.3 mg PO BID #180 tablet 08/31/16 Unknown Rx ALBUTEROL Inhaler [ProAir HFA 2 puff IH QID PRN #1 inhalation 07/27/17 Unknown Rx Inhaler] Fluticasone [Flonase] 1 spray NS QDAY #1 bottle 07/27/17 Unknown Rx Nitrofurantoin Monohyd/M-Cryst 100 mg PO BID #14 capsule 07/27/17 Unknown Rx [Macrobid 100 mg Capsule] predniSONE [Deltasone] 20 mg PO QDAY #5 tab 07/27/17 Unknown Rx ED Physical Exam - General Limitations: No Limitations General appearance: alert, in no apparent distress - Head Head exam: Present: atraumatic, normocephalic, other (patient has generalized sinus tenderness) - Eye Eye exam: Present: normal appearance - ENT ENT exam: Present: mucous membranes moist, TM's normal bilaterally, normal external ear exam - Neck Neck exam: Present: normal inspection - Respiratory Respiratory exam: Present: normal lung sounds bilaterally. Absent: respiratory distress, wheezes, rales, rhonchi - Cardiovascular Cardiovascular Exam: Present: regular rate, normal rhythm. Absent: systolic murmur, diastolic murmur, rubs, gallop - GI/Abdominal GI/Abdominal exam: Present: soft, normal bowel sounds. Absent: distended, tenderness, guarding, rebound - Extremities Exam Extremities exam: Present: normal inspection - Back Exam Back exam: Present: normal inspection - Neurological Exam Neurological exam: Present: alert, oriented X3 - Psychiatric Psychiatric exam: Present: normal affect, normal mood - Skin Skin exam: Present: warm, dry, intact, normal color. Absent: rash ED Course Vital Signs 07/27/17 10:44 Temperature 98.5 F Pulse Rate 69 Respiratory 16 Rate Blood Pressure 182/76 O2 Sat by Pulse 97 Oximetry ED Medical Decision Making - Medical Decision Making Patient clinically has a sinus infection and will be treated Critical care attestation.: If time is entered above; I have spent that time in minutes in the direct care of this critically ill patient, excluding procedure time. ED Disposition Clinical Impression: Acute sinusitis, Upper respiratory infection, ESRD (end stage renal disease) Disposition: DC- TO HOME OR SELFCARE Is pt being admited?: No Does the pt Need Aspirin: No Condition: Stable Instructions: Sinusitis (ED) Prescriptions: ALBUTEROL Inhaler [ProAir HFA Inhaler] 2 puff IH QID PRN #1 inhalation PRN Reason: Shortness Of Breath Fluticasone [Flonase] 1 spray NS QDAY #1 bottle Nitrofurantoin Monohyd/M-Cryst [Macrobid 100 mg Capsule] 100 mg PO BID #14 capsule predniSONE [Deltasone] 20 mg PO QDAY #5 tab Referrals: PRIMARY CARE, [Primary Care Provider] - 3-5 Days
== END 2017-07-27 12:16 | disposition home or self-care (01) ==
LOC: ED 10:14
DX: J01.90 Acute sinusitis, unspecified (principal); J06.9 Acute upper respiratory infection, unspecified; I12.0 Hypertensive chronic kidney disease with stage 5 chronic kidney disease or end stage renal disease; N18.6 End stage renal disease; I50.9 Heart failure, unspecified; K21.9 Gastro-esophageal reflux disease without esophagitis; Z99.2 Dependence on renal dialysis; Z90.49 Acquired absence of other specified parts of digestive tract; Z79.82 Long term (current) use of aspirin
CPT/HCPCS: 99282

== ENCOUNTER 2017-08-18 17:20 | Inpatient (IN) | payer MEDICARE ==
[2017-08-18 17:56] LABS: Basophils # (Auto) 0.1 K/mm3 (0.0-0.1); Basophils % (Auto) 1.4 % (0.0-1.8); Eosinophils # (Auto) 0.2 K/mm3 (0.0-0.4); Eosinophils % (Auto) 2.4 % (0.0-4.3); Hematocrit 20.6 % (30.3-42.9); Hemoglobin 6.3 gm/dl (10.1-14.3); Lymphocytes # (Auto) 1.2 K/mm3 (1.2-5.4); Lymphocytes % (Auto) 14.8 % (13.4-35.0); Mean Corpuscular HGB Conc 31 % (30-34); Mean Corpuscular Hemoglobin 27 pg (28-32); Mean Corpuscular Volume 87 fl (79-97); Monocytes # (Auto) 0.5 K/mm3 (0.0-0.8); Monocytes % (Auto) 5.6 % (0.0-7.3); Platelet Count 177 K/mm3 (140-440); Red Blood Count 2.35 M/mm3 (3.65-5.03); Red Cell Distribution Width 20.7 % (13.2-15.2)
[2017-08-18 18:09] LABS: Calcium 8.3 mg/dL (8.4-10.2)
[2017-08-18] MEDS ORDERED: DILAUDID IV ONE ×2 (19:18→20:12)
--- NOTE | 2017-08-18 19:31 | Emergency Department Report ---
HPI - General Chief Complaint: Recheck/Abnormal Lab/Rx Time Seen by Provider: 08/18/17 18:57 - HPI HPI: 66-year-old -[place] female presents to the emergency department, sent in by her quality assurance, after she was found to have low hemoglobin of 6.9 from blood work that was done last Tuesday at dialysis. Patient says that she's been feeling increased fatigue and generalized weakness. She also has been having a 24-hour history of some right-sided abdominal pain. Currently it is 8 out of 10 in intensity. She says that she has had this in the past and has had a workup including CT scans, EGD and colonoscopy and was told that it was "inflammation of my stomach." Recently she's been having some blood in the stool that is bright red but no difficulty with going. She has a history of end -stage renal disease on hemodialysis on Tuesday/Tuesday/Tuesday, CHF, HIV, hypertension. She has left upper extremity dialysis access. Her quality assurance is Dr. Zambrano who also functions as her primary care physician. No recent travel or sick contacts at home. She has not taken anything for her symptoms prior presentation. ED Past Medical Hx - Past Medical History Hx Hypertension: Yes Hx Heart Attack/AMI: No Hx Congestive Heart Failure: Yes Hx Diabetes: No Hx GERD: Yes Hx Liver Disease: Yes (abnormal liver function test, coagulopathy, mass on liver ) Hx Renal Disease: Yes (DIALYSIS MWF) Hx Arthritis: No Hx Asthma: No Hx COPD: No Hx HIV: Yes - Surgical History Hx Coronary Stent: No Hx Open Heart Surgery: No Hx Pacemaker: No Hx Internal Defibrillator: No Hx Cholecystectomy: No Hx Appendectomy: Yes Hx Breast Surgery: No Additional Surgical History: PD catheter -removed. FISTULA LEFT ARM - Social History Smoking Status: Never Smoker Substance Use Type: None - Medications Home Medications: Home Medications Medication Instructions Recorded Confirmed Last Taken Type Efavirenz [Sustiva] 600 mg PO DAILY 03/18/16 08/18/17 06/23/16 History Minoxidil [Loniten] 10 mg PO QDAY 03/18/16 08/18/17 06/23/16 History Terazosin [Hytrin] 10 mg PO BID 03/18/16 08/18/17 06/23/16 History Lamivudine 1 tab PO QDAY 08/30/16 08/18/17 Unknown History Tenofovir [Viread] 300 mg PO QWEEK 08/30/16 08/18/17 Unknown History NIFEdipine XL [Procardia Xl] 30 mg PO Q12HR #60 tablet 08/31/16 08/18/17 Unknown Rx cloNIDine [Catapres] 0.3 mg PO BID #180 tablet 08/31/16 08/18/17 Unknown Rx ALBUTEROL Inhaler [ProAir HFA 2 puff IH QID PRN #1 inhalation 07/27/17 08/18/17 Unknown Rx Inhaler] Fluticasone [Flonase] 1 spray NS QDAY #1 bottle 07/27/17 08/18/17 Unknown Rx ED Review of Systems ROS: Stated complaint: ABNORMAL LABS Other details as noted in HPI Comment: All other systems reviewed and negative Constitutional: weakness. denies: chills, fever Eyes: denies: eye pain, eye discharge, vision change ENT: denies: ear pain, throat pain Respiratory: denies: cough, shortness of breath, wheezing Cardiovascular: denies: chest pain, palpitations Gastrointestinal: abdominal pain, other (BRBPR). denies: melena Genitourinary: denies: urgency, dysuria, discharge Musculoskeletal: denies: back pain, joint swelling, arthralgia Skin: denies: rash, lesions Neurological: denies: headache, weakness, paresthesias Physical Exam - Physical Exam Vital Signs: Vital Signs 08/18/17 08/18/17 08/18/17 17:25 18:50 18:51 Temperature 99.2 F Pulse Rate 74 65 64 Respiratory 22 14 16 Rate Blood Pressure 135/41 Blood Pressure 152/55 [Right] O2 Sat by Pulse 97 100 99 Oximetry 08/18/17 08/18/17 18:58 19:00 Temperature Pulse Rate 61 Respiratory 16 15 Rate Blood Pressure Blood Pressure [Right] O2 Sat by Pulse 99 100 Oximetry Physical Exam: GENERAL: The patient is well-developed well-nourished. HENT: Normocephalic. Atraumatic. Patient has moist mucous membranes. EYES: Extraocular motions are intact. Pupils equal reactive to light bilaterally. NECK: Supple. Trachea is midline. CHEST/LUNGS: Clear to auscultation. There is no respiratory distress noted. HEART/CARDIOVASCULAR: Regular. There is no tachycardia. There is no murmur. ABDOMEN: Abdomen is soft. There is some right-sided abdominal tenderness to palpation, mostly in the right lower quadrant. Patient has normal bowel sounds. There is no abdominal distention. SKIN: Skin is warm and dry. NEURO: The patient is awake, alert, and oriented. The patient is cooperative. The patient has no focal neurologic deficits. The patient has normal speech. MUSCULOSKELETAL: There is no tenderness or deformity. There is no limitation range of motion. There is no evidence of acute injury. RECTAL: No gross blood. There is brown stool that is positive on guaiac testing. ED Course Vital Signs 08/18/17 08/18/17 08/18/17 17:25 18:50 18:51 Temperature 99.2 F Pulse Rate 74 65 64 Respiratory 22 14 16 Rate Blood Pressure 135/41 Blood Pressure 152/55 [Right] O2 Sat by Pulse 97 100 99 Oximetry 08/18/17 08/18/17 18:58 19:00 Temperature Pulse Rate 61 Respiratory 16 15 Rate Blood Pressure Blood Pressure [Right] O2 Sat by Pulse 99 100 Oximetry ED Medical Decision Making - Lab Data Result diagrams: 08/18/17 17:40 08/18/17 17:40 - Radiology Data Radiology results: report reviewed, image reviewed interpreted by me: Abdominal x-ray shows nonspecific nonobstructive bowel gas. Increased stool volume. PROCEDURE: CT ABDOMEN PELVIS WO CON TECHNIQUE: Computerized axial tomography of the abdomen and pelvis was performed without intravenous contrast. This study is performed without intravascular contrast material and its sensitivity for abdominal and pelvic pathology, including neoplasms, inflammation, abscess, free fluid, thrombosis, arterial dissection and infarction, is reduced compared with a contrast enhanced study. HISTORY: right sided abdominal pain COMPARISON: 05/20/2016 FINDINGS: Moderate degree cardiomegaly is noted. There is diffusely increased density of liver and spleen. Pancreatic duct appears dilated in the region of pancreatic head measuring about 7 millimeters in diameter. Bilateral kidneys are diffusely atrophied. Adrenal glands are within normal limits. There is no obstructive uropathy. Urinary bladder is empty. Aorta is of normal caliber. Mild degree of free fluid is noted in the peritoneal cavity. There is no free air. Gallbladder is partially distended. Small bowel loops are within normal limits. Multiple colonic diverticula are noted without evidence of diverticulitis. There is moderate degree residual stool. Appendix is not distinctly visualized. 3 centimeters cystic lesion is noted in the right adnexal region. Multiple calcified densities are noted in the uterus consistent with uterine fibroids. There is a 3 centimeter soft tissue density lesion along the posterior aspect of uterus which also most likely represents a fibroid. There is diffusely increased bone density. Vertebral height is normal. There is diffuse subcutaneous soft tissue induration. IMPRESSION: Increased density of liver and spleen may represent etiologies such as hemochromatosis. Atrophied kidneys consistent with end-stage renal disease. Mild ascites Moderate degree cardiomegaly Increased bone density is consistent with renal osteodystrophy. Multiple calcified lesions in the uterus are consistent with fibroids. There is also a 3 centimeter noncalcified lesion posterior to the uterus which also most likely represents a fibroid. 3 centimeter cystic lesion in the right adnexal region most likely represents a right ovarian cyst. This is increased since the prior study. Ultrasound evaluation is recommended. Appendix is not distinctly visualized. If appendicitis is a clinical concern follow-up study with oral contrast is recommended. Generalized anasarca. Dilated pancreatic duct measuring about 11 millimeters. ERCP may be recommended for further evaluation.. - Medical Decision Making Patient came in for anemia with hemoglobin of 6.9 from Tuesday. Today it is 6.3. The patient does have some abdominal pain and bright red blood per rectum with bowel movements. Vital signs stable throughout her ED course including being afebrile. CT does not show any signs of obstruction or any other significant acute process. Spoke with nephrology who will give the patient dialysis tomorrow and has agreed to do the transfusion at that time, per the patient's request. I do believe the patient is stable to wait for tomorrow for dialysis. She may need gastroenterology consultation as well. Patient has been accepted for admission by the hospitalist, Dr. Rondon. - Differential Diagnosis hemorrhoid, malignancy, gastritis, diverticulosis Critical Care Time: No Critical care attestation.: If time is entered above; I have spent that time in minutes in the direct care of this critically ill patient, excluding procedure time. ED Disposition Clinical Impression: ESRD (end stage renal disease), Symptomatic anemia GI bleed Qualifiers: GI bleed type/associated pathology: unspecified gastrointestinal hemorrhage type Qualified Code(s): K92.2 - Gastrointestinal hemorrhage, unspecified Disposition: OP ADMIT IP TO THIS HOSP Is pt being admited?: Yes Condition: Fair Time of Disposition: 22:30
--- NOTE | 2017-08-18 20:54 | XRay Report ---
FINAL REPORT PROCEDURE: XR ABDOMEN 2V TECHNIQUE: Abdominal series, including supine and upright AP views. HISTORY: Abd pain COMPARISON: No prior studies are available for comparison. FINDINGS: Bowel gas pattern:Intestinal gas is distributed predominantly in nondistended colon and rectum. Moderate degree residual stool is noted.. Masses or calcifications:None . Bony structures:No significant abnormality . Pneumoperitoneum:None . Other:Moderate degree cardiomegaly is noted.. IMPRESSION: Nonspecific intestinal gas pattern. Moderate degree residual stool Moderate cardiomegaly.
--- NOTE | 2017-08-18 21:10 | Cat Scan Report ---
FINAL REPORT PROCEDURE: CT ABDOMEN PELVIS WO CON TECHNIQUE: Computerized axial tomography of the abdomen and pelvis was performed without intravenous contrast. This study is performed without intravascular contrast material and its sensitivity for abdominal and pelvic pathology, including neoplasms, inflammation, abscess, free fluid, thrombosis, arterial dissection and infarction, is reduced compared with a contrast enhanced study. HISTORY: right sided abdominal pain COMPARISON: 05/20/2016 FINDINGS: Moderate degree cardiomegaly is noted. There is diffusely increased density of liver and spleen. Pancreatic duct appears dilated in the region of pancreatic head measuring about 7 millimeters in diameter. Bilateral kidneys are diffusely atrophied. Adrenal glands are within normal limits. There is no obstructive uropathy. Urinary bladder is empty. Aorta is of normal caliber. Mild degree of free fluid is noted in the peritoneal cavity. There is no free air. Gallbladder is partially distended. Small bowel loops are within normal limits. Multiple colonic diverticula are noted without evidence of diverticulitis. There is moderate degree residual stool. Appendix is not distinctly visualized. 3 centimeters cystic lesion is noted in the right adnexal region. Multiple calcified densities are noted in the uterus consistent with uterine fibroids. There is a 3 centimeter soft tissue density lesion along the posterior aspect of uterus which also most likely represents a fibroid. There is diffusely increased bone density. Vertebral height is normal. There is diffuse subcutaneous soft tissue induration. IMPRESSION: Increased density of liver and spleen may represent etiologies such as hemochromatosis. Atrophied kidneys consistent with end-stage renal disease. Mild ascites Moderate degree cardiomegaly Increased bone density is consistent with renal osteodystrophy. Multiple calcified lesions in the uterus are consistent with fibroids. There is also a 3 centimeter noncalcified lesion posterior to the uterus which also most likely represents a fibroid. 3 centimeter cystic lesion in the right adnexal region most likely represents a right ovarian cyst. This is increased since the prior study. Ultrasound evaluation is recommended. Appendix is not distinctly visualized. If appendicitis is a clinical concern follow-up study with oral contrast is recommended. Generalized anasarca. Dilated pancreatic duct measuring about 11 millimeters. ERCP may be recommended for further evaluation..
[2017-08-18] MEDS ORDERED: TYLENOL PO PRN (22:00)
[2017-08-18] MEDS ORDERED: ZOFRAN IV PRN (22:00)
[2017-08-18] MEDS ORDERED: PROAIR IH PRN (22:05)
[2017-08-18] MEDS ORDERED: PROVENTIL IH PRN (23:05)
[2017-08-18] MEDS ORDERED: PROTONIX IV ONE (23:42)
[2017-08-18] MEDS: PROTONIX IV SCH (23:53)
[2017-08-19] MEDS ORDERED: VIREAD PO NR (01:00)
[2017-08-19] MEDS ORDERED: SUSTIVA PO NR (01:00)
[2017-08-19] MEDS ORDERED: EPIVIR PO NR ×2 (01:00→02:00)
[2017-08-19] MEDS: DILAUDID IV PRN ×5 (01:23→22:01)
[2017-08-19 01:57] LABS: Hematocrit 17.9 % (30.3-42.9); Hemoglobin 5.5 gm/dl (10.1-14.3)
[2017-08-19 05:43] LABS: Hemoglobin 5.9 gm/dl (10.1-14.3)
[2017-08-19 05:44] LABS: Hematocrit 18.4 % (30.3-42.9)
--- NOTE | 2017-08-19 07:34 | History and Physical Report ---
CHIEF COMPLAINT: Abnormal lab results. HISTORY OF PRESENT ILLNESS: The patient is a 66-year-old female who was sent by her neurologist to come to the Emergency Room and get checked out because of finding of low hemoglobin of 6.9 value from lab work done last Tuesday at dialysis section. The patient also complained of generalized weakness and fatigue and also complained of seeing bright red blood in the stool from time to time and also has some discomfort in the right upper quadrant abdominal area. There is no history of nausea or vomiting. No history of hematemesis. The patient also denied history of fever or chills. Denies history of shortness of breath, and undergoes dialysis on Mondays, Wednesdays and Tuesday. PAST MEDICAL HISTORY: Pertinent for hypertension, congestive heart failure, gastroesophageal reflux disease, abnormal liver function tests with some lesion in the liver area. Also, the patient has past history of end-stage renal disease, on dialysis and HIV infection. PAST SURGICAL HISTORY: Pertinent for appendectomy, dialysis, fistula on the left arm. FAMILY HISTORY: Noncontributory. SOCIAL HISTORY: The patient does not smoke, does not drink alcohol and does not use illicit drugs. MEDICATIONS: The patient is on efavirenz 600 mg by mouth daily, minoxidil 10 mg by mouth daily, terazosin 10 mg by mouth twice daily, Daily-Mireya 1 tablet by mouth daily, lamivudine 1 tablet by mouth daily, tenofovir 300 mg by mouth every week, aspirin 81 mg by mouth daily, nifedipine XL 90 mg by mouth every 12 hours, Bactrim double strength 0.5 mg by mouth every 3-4 hours, clonidine 0.3 mg by mouth twice daily, albuterol inhaler 2 puffs inhalation q.i.d. as needed for shortness of breath, Flonase 1 spray nasally daily, nitrofurantoin 100 mg by mouth twice daily, and prednisone 20 mg by mouth daily. ALLERGIES: The patient is allergic to CODEINE and HYDRALAZINE, but has tolerated Dilaudid. REVIEW OF SYSTEMS: CONSTITUTIONAL: There is no fever, no chills, no diaphoresis. HEENT: There is no headache or sore throat. CARDIOVASCULAR: There is no chest pain or orthopnea. RESPIRATORY: There is no shortness of breath or cough. GASTROINTESTINAL: Abdominal pain present, rectal bleeding noted. There is no nausea, no vomiting, no diarrhea or constipation. NEUROLOGICAL: There is no numbness, no dizziness, no altered mental status; generalized weakness noted. MUSCULOSKELETAL: There is no joint pain or swelling. DERMATOLOGICAL: There is no skin rash or itching. GENITOURINARY: There is no dysuria, hematuria or flank pain. Rest of system review is normal. PHYSICAL EXAMINATION: GENERAL: At the time of exam, the patient was found to be alert, oriented x 3, and not in acute distress. VITAL SIGNS: Shows temperature of 98.4 degrees Fahrenheit, pulse of 62, respirations 13, blood pressure 170/64, O2 sat of 99% on room air. HEENT: Shows pupils to be equal, round, reactive to light and accommodating. Extraocular muscles are intact. NECK: Supple with no JVD or carotid bruit. CARDIOVASCULAR: Shows normal first and second heart sounds with no gallop ____ grade 2/6 systolic murmur, maximal at the apex, which the patient states is chronic. RESPIRATORY: Shows good air entry on both sides of the lungs with no abnormal breath sounds. GASTROINTESTINAL: Shows abdomen to be full, soft, nontender with no organomegaly or rigidity. NEUROLOGIC: Shows no focal deficit. MUSCULOSKELETAL: Shows no joint swelling or tenderness. DERMATOLOGICAL: Shows no skin rash. GENITOURINARY: Shows no costovertebral angle tenderness. PERTINENT LABORATORY: The patient had CBC done that shows normal white count, low hemoglobin of 6.3, low hematocrit of 20.6 with normal MCV. CBC differential shows slight increase in segmented neutrophil of 75.8% with no significant bands. Chemistry shows normal sodium and potassium with low chloride of 95.6, elevated BUN of 26 and elevated creatinine of 4.8 consistent with the patient's end-stage renal disease, on dialysis. The patient's rest of chemistry shows low albumin of 3.0 and correspondingly low calcium of 8.3. IMAGING STUDIES: The patient had CT of the abdomen and pelvis done without contrast that shows increased density of the liver and spleen that represent etiology such as hemochromatosis, also the CT shows atrophied kidneys consistent with end-stage renal disease, also there is finding of moderate degree of cardiomegaly on the CT report and there are multiple calcified lesions in the uterus, which the radiologist say this is consistent with fibroid. There is also finding of 3-cm cystic lesion in the right adrenal lesion most likely representing right ovarian cyst and radiologist say that the appendix is not distinctively visualized. Also, there is finding of dilated pancreatic duct measuring about 11 mm and the radiologist say that ER CT may be recommended for further evaluation. DIAGNOSES: 1. Rectal bleeding. 2. Anemia. 3. Right ovarian cyst. 4. Dilated pancreatic duct. 5. Fibroids. CARE OF PLAN: 1. The patient will be admitted to telemetry. 2. The patient will have hemoglobin and hematocrit monitored every 6 hours x 3 more levels. 3. The patient will remain n.p.o. for possible endoscopy by the brass bobbin winder. 4. The patient will have GI consult with [facility] for management of rectal bleed, lesions in the liver and spleen, dilated pancreatic duct. 5. The patient will continue Nephrology consult with Dr. Moreau for management of end-stage renal disease with possible dialysis in the morning of 08/19/2017 and during that time, decision of possible transfusion ____. 6. The patient will have packed red blood cell type and screen. 7. The patient will be on IV Dilaudid 0.5 mg every 4 hours as needed for pain having tolerated Dilaudid in the emergency room. 8. Allergic to codeine. 9. The patient will be on IV Zofran 4 mg every 8 hours for nausea and vomiting and will be on Tylenol 650 mg by mouth every 4 hours for fever and headache. 10. The patient will be on IV pantoprazole 40 mg every 24 hours. She will be on her home medications as shown in the reconciliation section. 11. The patient with finding of ovarian cyst ____ if symptoms of right flank pain persists. JOB# [id number] OCN/NTS
[2017-08-19] MEDS ORDERED: NACL 0.9% 500 ML 500 ML IV NR (08:30)
[2017-08-19 09:41] LABS: Hemoglobin 5.9 gm/dl (10.1-14.3)
--- NOTE | 2017-08-19 09:54 | Progress Note ---
Assessment and Plan Assessment and plan: --Rectal bleeding; Supportive care, GI consulted, possible endoscopy --Severe acute blood loss anemia; hemoglobin 5.9 Type and cross and transfuse 2 units of PRBC during dialysis Closely monitor H&H additional PRBC as needed --HIV/AIDS; patient follows with private ID Continue current management --End Stage renal disease on hemodialysis; nephrology consulted HD per schedule, transfusion during dialysis --Hypertension; moderate control, continue current antihypertensives And when necessary hydralazine; --DVT prophylaxis; SCDs History Interval history: Patient Seen and examined medical review Admitted with rectal bleeding, acute blood loss anemia Hemoglobin 5.9 Patient complains of generalized weakness Vital signs reviewed Hospitalist Physical - Constitutional Vitals: Temp Pulse Resp BP Pulse Ox 97.9 F 106 H 20 190/88 98 08/19/17 07:43 08/19/17 07:43 08/19/17 07:43 08/19/17 07:43 08/19/17 07:43 General appearance: Present: no acute distress, well-nourished - EENT Eyes: Present: PERRL, EOM intact - Neck Neck: Present: supple, normal ROM - Respiratory Respiratory effort: normal Respiratory: bilateral: diminished, negative: rales, rhonchi, wheezing - Cardiovascular Rhythm: regular Heart Sounds: Present: S1 & S2 - Extremities Extremities: no ischemia, No edema - Abdominal General gastrointestinal: soft, non-tender, non-distended, normal bowel sounds - Integumentary Integumentary: Present: clear, warm - Psychiatric Psychiatric: appropriate mood/affect, cooperative - Neurologic Neurologic: CNII-XII intact, moves all extremities Results - Labs CBC & Chem 7: 08/19/17 09:07 08/18/17 17:40 Labs: Laboratory Last Values WBC 8.2 K/mm3 (4.5-11.0) 08/18/17 17:40 RBC 2.35 M/mm3 (3.65-5.03) L 08/18/17 17:40 Hgb 5.9 gm/dl (10.1-14.3) L* 08/19/17 09:07 Hct 19.0 % (30.3-42.9) L* 08/19/17 09:07 MCV 87 fl (79-97) 08/18/17 17:40 MCH 27 pg (28-32) L 08/18/17 17:40 MCHC 31 % (30-34) 08/18/17 17:40 RDW 20.7 % (13.2-15.2) H 08/18/17 17:40 Plt Count 177 K/mm3 (140-440) 08/18/17 17:40 Lymph % (Auto) 14.8 % (13.4-35.0) 08/18/17 17:40 [place] % (Auto) 5.6 % (0.0-7.3) 08/18/17 17:40 Eos % (Auto) 2.4 % (0.0-4.3) 08/18/17 17:40 Baso % (Auto) 1.4 % (0.0-1.8) 08/18/17 17:40 Lymph # 1.2 K/mm3 (1.2-5.4) 08/18/17 17:40 [place] # 0.5 K/mm3 (0.0-0.8) 08/18/17 17:40 Eos # 0.2 K/mm3 (0.0-0.4) 08/18/17 17:40 Baso # 0.1 K/mm3 (0.0-0.1) 08/18/17 17:40 Seg Neutrophils % 75.8 % (40.0-70.0) H 08/18/17 17:40 Seg Neutrophils # 6.2 K/mm3 (1.8-7.7) 08/18/17 17:40 Sodium 139 mmol/L (137-145) 08/18/17 17:40 Potassium 3.7 mmol/L (3.6-5.0) 08/18/17 17:40 Chloride 95.6 mmol/L (98-107) L 08/18/17 17:40 Carbon Dioxide 30 mmol/L (22-30) 08/18/17 17:40 Anion Gap 17 mmol/L 08/18/17 17:40 BUN 26 mg/dL (7-17) H 08/18/17 17:40 Creatinine 4.8 mg/dL (0.7-1.2) H 08/18/17 17:40 Estimated GFR 11 ml/min 08/18/17 17:40 BUN/Creatinine Ratio 5 % 08/18/17 17:40 Glucose 129 mg/dL (65-100) H 08/18/17 17:40 Calcium 8.3 mg/dL (8.4-10.2) L 08/18/17 17:40 Total Bilirubin 0.30 mg/dL (0.1-1.2) 08/18/17 17:40 AST 18 units/L (5-40) 08/18/17 17:40 ALT 5 units/L (7-56) L 08/18/17 17:40 Alkaline Phosphatase 135 units/L (35-129) H 08/18/17 17:40 Total Protein 6.4 g/dL (6.3-8.2) 08/18/17 17:40 Albumin 3.0 g/dL (3.9-5) L 08/18/17 17:40 Albumin/Globulin Ratio 0.9 % 08/18/17 17:40 Blood Type B POSITIVE 08/18/17 17:40 Antibody Screen Negative 08/18/17 17:40 Crossmatch See Detail 08/18/17 17:40
[2017-08-19] MEDS ORDERED: EFAVIRENZ 600 MG PO SCH (10:00)
[2017-08-19] MEDS: PROCARDIA XL PO SCH ×2 (10:00→21:53)
[2017-08-19] MEDS ORDERED: LAMIVUDINE PO SCH (10:00)
[2017-08-19] MEDS ORDERED: NON-FORMULARY (Terazosin 10 MG) PO SCH (10:00)
[2017-08-19] MEDS: MINIPRESS PO SCH ×2 (10:00→21:51)
--- NOTE | 2017-08-19 11:02 | Gastroenterology Consultation ---
History of Present Illness - Reason for Consult Consult date: 08/19/17 rectal bleeding Requesting physician: MICHELLE PRABHAKAR - History of Present Illness Patient is a 66 y/o female with PMH of ESRD on HD, CHF, HIV, and HTN who presented to ED with c/o presented to ED with c/o increased fatigue, generalized weakness intermittent right-sided abdominal pain, and bright red blood in her stool. This morning patient was resting in bed w/o acute distress. Reports bright red blood in stool x 4 days this week following an episode of constipation with straining. No signs of active bleeding x 2 days. No melena or hematochezia. Also admits to intermittent right-sided abd pain but no current pain. Denies fever, wt loss, CP, SOB, dizziness, N/V, dyphagia, or diarrhea. Last EGD 10/2016 that revealed gastritis and esophagitis. Last colonoscopy approximately 2-3 years ago that revealed polyps. Past History Past Medical History: ESRD, heart failure, hypertension, other (HIV) Past Surgical History: appendectomy, Other (removal of PD catheter, AV fistula) Social history: denies: smoking Medications and Allergies Allergies Allergy/AdvReac Type Severity Reaction Status Date / Time codeine Allergy HALLUCINATE Verified 08/18/17 17:25 hydralazine AdvReac Vomiting Verified 08/18/17 17:25 Home Medications Medication Instructions Recorded Confirmed Last Taken Type Efavirenz [Sustiva] 600 mg PO DAILY 03/18/16 08/18/17 06/23/16 History Minoxidil [Loniten] 10 mg PO QDAY 03/18/16 08/18/17 06/23/16 History Terazosin [Hytrin] 10 mg PO BID 03/18/16 08/18/17 06/23/16 History Lamivudine 1 tab PO QDAY 08/30/16 08/18/17 Unknown History Tenofovir [Viread] 300 mg PO QWEEK 08/30/16 08/18/17 Unknown History NIFEdipine XL [Procardia Xl] 30 mg PO Q12HR #60 tablet 08/31/16 08/18/17 Unknown Rx cloNIDine [Catapres] 0.3 mg PO BID #180 tablet 08/31/16 08/18/17 Unknown Rx ALBUTEROL Inhaler [ProAir HFA 2 puff IH QID PRN #1 inhalation 07/27/17 08/18/17 Unknown Rx Inhaler] Fluticasone [Flonase] 1 spray NS QDAY #1 bottle 07/27/17 08/18/17 Unknown Rx Active Meds: Active Medications Acetaminophen (Tylenol) 650 mg PO Q4H PRN PRN Reason: Fever >101 Albuterol (Proventil) 2.5 mg IH QIDRT PRN PRN Reason: Shortness Of Breath Clonidine HCl (Catapres) 0.3 mg PO BID [facility] Efavirenz (Sustiva) 600 mg PO DAILY@2200 [facility] Fluticasone Propionate (Flonase) 50 mcg NS QDAY [facility] Hydromorphone HCl (Dilaudid) 0.5 mg IV Q4H PRN PRN Reason: Pain, Moderate (4-6) Last Admin: 08/19/17 06:15 Dose: 0.5 mg Sodium Chloride (Nacl 0.9% 500 Ml) 500 mls @ 0 mls/hr IV ONCE NR Stop: 08/19/17 12:30 Lamivudine (Epivir) 150 mg PO DAILY@2200 [facility] Minoxidil (Loniten) 10 mg PO QDAY [facility] Nifedipine (Procardia Xl) 30 mg PO Q12HR [facility] Ondansetron HCl (Zofran) 4 mg IV Q8H PRN PRN Reason: Nausea And Vomiting Pantoprazole Sodium (Protonix) 40 mg IV Q12H [facility] Last Admin: 08/18/17 23:53 Dose: 40 mg Prazosin HCl (Minipress) 5 mg PO BID [facility] Tenofovir Disoproxil Fumarate (Viread) 300 mg PO Th@2200 [facility] Review of Systems - Review of Systems All systems: negative Gastrointestinal: abdominal pain, hematochezia Exam - Constitutional Vital Signs: Temp Pulse Resp BP Pulse Ox 97.9 F 106 H 20 190/88 98 08/19/17 07:43 08/19/17 07:43 08/19/17 07:43 08/19/17 07:43 08/19/17 07:43 General appearance: no acute distress - EENT Eyes: PERRL, EOM intact ENT: hearing intact - Respiratory Respiratory: bilateral: CTA - Cardiovascular Rhythm: regular Heart Sounds: Present: S1 & S2 - Gastrointestinal General gastrointestinal: Present: soft, tender (RUQ), non-distended, normal bowel sounds Rectal Exam: hemorrhoids, stool brown, other (no blood) - Neurologic Neurological: alert and oriented x3 - Labs CBC & Chem 7: 08/19/17 09:07 08/18/17 17:40 Lab Results: Laboratory Results - last 24 hr 08/18/17 08/18/17 08/18/17 17:40 17:40 17:40 WBC 8.2 RBC 2.35 L Hgb 6.3 L Hct 20.6 L MCV 87 MCH 27 L MCHC 31 RDW 20.7 H Plt Count 177 Lymph % (Auto) 14.8 [place] % (Auto) 5.6 Eos % (Auto) 2.4 Baso % (Auto) 1.4 Lymph # 1.2 [place] # 0.5 Eos # 0.2 Baso # 0.1 Seg Neutrophils % 75.8 H Seg Neutrophils # 6.2 Sodium 139 Potassium 3.7 Chloride 95.6 L Carbon Dioxide 30 Anion Gap 17 BUN 26 H Creatinine 4.8 H Estimated GFR 11 BUN/Creatinine Ratio 5 Glucose 129 H Calcium 8.3 L Total Bilirubin 0.30 AST 18 ALT 5 L Alkaline Phosphatase 135 H Total Protein 6.4 Albumin 3.0 L Albumin/Globulin Ratio 0.9 Blood Type B POSITIVE Antibody Screen Negative Crossmatch See Detail 08/19/17 08/19/17 08/19/17 00:59 05:21 09:07 WBC RBC Hgb 5.5 L* 5.9 L* 5.9 L* Hct 17.9 L* 18.4 L* 19.0 L* MCV MCH MCHC RDW Plt Count Lymph % (Auto) [place] % (Auto) Eos % (Auto) Baso % (Auto) Lymph # [place] # Eos # Baso # Seg Neutrophils % Seg Neutrophils # Sodium Potassium Chloride Carbon Dioxide Anion Gap BUN Creatinine Estimated GFR BUN/Creatinine Ratio Glucose Calcium Total Bilirubin AST ALT Alkaline Phosphatase Total Protein Albumin Albumin/Globulin Ratio Blood Type Antibody Screen Crossmatch Assessment and Plan 1.anemia 2.hematochezia -HGB 5.9- trending down (2 units PRBCs pending transfusion) -continue to monitor H/H and transfuse as needed -hold blood thinning medications -no active signs of bleeding-currently HD stable -last EGD 10/2016 showed gastritis and esophagitis -last colonoscopy approximately 2-3 years ago showed polyps -etiology unclear- possibly anorectal vs diverticular vs other -will schedule for a colonoscopy in am -clear liquids today then NPO after MN -continue supportive care 3.right sided abd pain -improved -CT showed increased desity of liver and spleen as well as a dilated pancreatic duct -T.roderick 0.30, AST 18, ALT 5, alk phos 135 -recommend further evaluation as an outpatient
[2017-08-19] MEDS ORDERED: GOLYTELY PO ONE (11:31)
[2017-08-19 12:40] LABS: Hematocrit 18.8 % (30.3-42.9); Hemoglobin 5.8 gm/dl (10.1-14.3)
[2017-08-19] MEDS: PROTONIX IV SCH (13:26)
[2017-08-19] MEDS: FLONASE NS SCH (13:28)
[2017-08-19] MEDS: CATAPRES PO SCH ×2 (13:30→21:52)
[2017-08-19] MEDS ORDERED: NACL 0.9% 100 ML IV PRN (13:33)
--- NOTE | 2017-08-19 14:35 | Consultation ---
History of Present Illness - Reason for Consult Consult date: 08/19/17 end stage renal disease Requesting physician: AREN DUNN - History of Present Illness 66-year-old -Irish female presents to the emergency department, sent in by her hydraulic strainer operator, after she was found to have low hemoglobin of 6.9 from blood work that was done last Tuesday at dialysis. Patient says that she's been feeling increased fatigue and generalized weakness. She also has been having a 24-hour history of some right-sided abdominal pain. Currently it is 8 out of 10 in intensity. She says that she has had this in the past and has had a workup including CT scans, EGD and colonoscopy and was told that it was "inflammation of my stomach." Recently she's been having some blood in the stool that is bright red but no difficulty with going. She has a history of end -stage renal disease on hemodialysis on Tuesday/Tuesday/Tuesday, CHF, HIV, hypertension. She has left upper extremity dialysis access. Her hydraulic strainer operator is Dr. Zambrano who also functions as her primary care physician. No recent travel or sick contacts at home. She has not taken anything for her symptoms prior presentation. Past History Past Medical History: ESRD, heart failure, hypertension, other (HIV) Past Surgical History: appendectomy, Other (removal of PD catheter, AV fistula) Social history: denies: smoking Medications and Allergies Allergies Allergy/AdvReac Type Severity Reaction Status Date / Time codeine Allergy HALLUCINATE Verified 08/18/17 17:25 hydralazine AdvReac Vomiting Verified 08/18/17 17:25 Home Medications Medication Instructions Recorded Confirmed Last Taken Type Efavirenz [Sustiva] 600 mg PO DAILY 03/18/16 08/18/17 06/23/16 History Minoxidil [Loniten] 10 mg PO QDAY 03/18/16 08/18/17 06/23/16 History Terazosin [Hytrin] 10 mg PO BID 03/18/16 08/18/17 06/23/16 History Lamivudine 1 tab PO QDAY 08/30/16 08/18/17 Unknown History Tenofovir [Viread] 300 mg PO QWEEK 08/30/16 08/18/17 Unknown History NIFEdipine XL [Procardia Xl] 30 mg PO Q12HR #60 tablet 08/31/16 08/18/17 Unknown Rx cloNIDine [Catapres] 0.3 mg PO BID #180 tablet 08/31/16 08/18/17 Unknown Rx ALBUTEROL Inhaler [ProAir HFA 2 puff IH QID PRN #1 inhalation 07/27/17 08/18/17 Unknown Rx Inhaler] Fluticasone [Flonase] 1 spray NS QDAY #1 bottle 07/27/17 08/18/17 Unknown Rx Active Meds: Active Medications Acetaminophen (Tylenol) 650 mg PO Q4H PRN PRN Reason: Fever >101 Albuterol (Proventil) 2.5 mg IH QIDRT PRN PRN Reason: Shortness Of Breath Clonidine HCl (Catapres) 0.3 mg PO BID [facility] Efavirenz (Sustiva) 600 mg PO DAILY@2200 [facility] Epoetin Min (Epogen) 20,000 unit IV ONLBERTO PRN PRN Reason: hemodialysis Fluticasone Propionate (Flonase) 50 mcg NS QDAY [facility] Last Admin: 08/19/17 13:28 Dose: 50 mcg Hydromorphone HCl (Dilaudid) 0.5 mg IV Q4H PRN PRN Reason: Pain, Moderate (4-6) Last Admin: 08/19/17 13:31 Dose: 0.5 mg Sodium Chloride (Nacl 0.9%) 100 mls @ 999 mls/hr IV NOLBERTO PRN PRN Reason: Hypotension Lamivudine (Epivir) 150 mg PO DAILY@2200 [facility] Minoxidil (Loniten) 10 mg PO QDAY [facility] Nifedipine (Procardia Xl) 30 mg PO Q12HR [facility] Ondansetron HCl (Zofran) 4 mg IV Q8H PRN PRN Reason: Nausea And Vomiting Pantoprazole Sodium (Protonix) 40 mg IV Q12H [facility] Last Admin: 08/19/17 13:26 Dose: 40 mg Prazosin HCl (Minipress) 5 mg PO BID [facility] Tenofovir Disoproxil Fumarate (Viread) 300 mg PO Th@2200 [facility] Review of Systems All systems: negative (except as noted above) Exam - Vital Signs Vital signs: Vital Signs Temp Pulse Resp BP Pulse Ox 99.2 F 74 22 135/41 97 08/18/17 17:25 08/18/17 17:25 08/18/17 17:25 08/18/17 17:25 08/18/17 17:25 - General Appearance General appearance: well-developed, well-nourished, appears stated age EENT: PERRL, mucous membranes moist Neck: Present: neck supple, trachea midline. Absent: JVD/HJR, [place] Respiratory: Clear to Ascultation Heart: regular, normal heart rate Gastrointestinal: Present: normal, normoactive bowel sounds Integumentary: no rash, other (1+ edema. AV fistula in her left upper arm. Good bruit and thrill) Results - Lab Results 08/19/17 11:54 08/18/17 17:40 Most recent lab results Calcium 8.3 mg/dL (8.4-10.2) L 08/18/17 17:40 Assessment and Plan Impression * End-stage renal disease * Symptomatic anemia * Hypertension * HIV disease Recommendations * Schedule patient for hemodialysis today * Transfuse 2 units of packed RBC with dialysis * Continue dialysis on MWF schedule as outpatient * No IV, BP or of any puncture in access arm * Agree with GI evaluation * adjust diet and meds for ESRD state * Thank you very much for the consultation. Shall follow her along with you
[2017-08-19] MEDS ORDERED: NACL 0.9 (PRIMING MACHINE ONLY DIALYSIS) MC ONE (16:04)
[2017-08-19] MEDS ORDERED: SUSTIVA PO SCH (22:00)
[2017-08-19] MEDS ORDERED: EPIVIR PO SCH ×2 (22:00)
[2017-08-19] MEDS: LONITEN PO SCH (23:28)
[2017-08-20 04:51] LABS: Basophils # (Auto) 0.1 K/mm3 (0.0-0.1); Basophils % (Auto) 1.5 % (0.0-1.8); Eosinophils # (Auto) 0.1 K/mm3 (0.0-0.4); Eosinophils % (Auto) 1.6 % (0.0-4.3); Hematocrit 24.9 % (30.3-42.9); Hemoglobin 8.1 gm/dl (10.1-14.3); Lymphocytes # (Auto) 1.1 K/mm3 (1.2-5.4); Lymphocytes % (Auto) 15.2 % (13.4-35.0); Mean Corpuscular HGB Conc 33 % (30-34); Mean Corpuscular Hemoglobin 28 pg (28-32); Mean Corpuscular Volume 87 fl (79-97); Monocytes # (Auto) 0.3 K/mm3 (0.0-0.8); Monocytes % (Auto) 4.8 % (0.0-7.3); Platelet Count 137 K/mm3 (140-440); Red Blood Count 2.85 M/mm3 (3.65-5.03); Red Cell Distribution Width 18.1 % (13.2-15.2)
[2017-08-20 05:03] LABS: INR 1.18 (0.87-1.13)
[2017-08-20] MEDS: DILAUDID IV PRN ×2 (06:43→11:27)
[2017-08-20 09:00] VITALS: BP 187/93
[2017-08-20] MEDS ORDERED: PROTONIX PO SCH (10:00)
[2017-08-20] MEDS: MINIPRESS PO SCH (10:42)
[2017-08-20] MEDS: LONITEN PO SCH (10:43)
[2017-08-20] MEDS: CATAPRES PO SCH (10:43)
[2017-08-20] MEDS: PROCARDIA XL PO SCH (10:43)
[2017-08-20] MEDS: FLONASE NS SCH (10:44)
--- NOTE | 2017-08-20 11:53 | Progress Note ---
Assessment and Plan Impression * End-stage renal disease * Symptomatic anemia * Hypertension * HIV disease Recommendations * Uneventful hemodialysis yesterday * S/P 2 units of packed RBC transfusion with dialysis * Continue dialysis on F schedule as outpatient * No IV, BP or of any puncture in access arm * Further paln as per GI services * Hold PO4 binders for now * adjust diet and meds for ESRD state Subjective Date of service: 08/20/17 Interval history: patient feels well. Had uneventful dialysis and PRBC transfusion yesterday . No SOB . Objective - Vital Signs Vital signs: Vital Signs - 12hr 08/20/17 08/20/17 08/20/17 00:31 01:00 05:12 Temperature 99.4 F 98.6 F Pulse Rate 102 H 85 80 Respiratory 20 20 Rate Blood Pressure 157/67 146/56 O2 Sat by Pulse 100 98 Oximetry 08/20/17 08/20/17 07:51 08:26 Temperature 98.6 F Pulse Rate 92 H 90 Respiratory 14 Rate Blood Pressure 187/93 O2 Sat by Pulse 100 Oximetry - General Appearance General appearance: well-developed, well-nourished, appears stated age EENT: PERRL, mucous membranes moist Neck: no JVD, no thyromegaly, no carotid bruit, supple Respiratory: Present: Clear to Ascultation Cardiology: regular, normal heart rate, S1S2, no murmurs Gastrointestinal: normal, normoactive bowel sounds Integumentary: no rash, other (AVF left UE . Good bruit and thrill) - Lab 08/20/17 04:36 08/18/17 17:40 Most recent lab results Calcium 8.3 mg/dL (8.4-10.2) L 08/18/17 17:40
--- NOTE | 2017-08-20 12:13 | Discharge Summary ---
Providers - Providers Date of Admission: 08/18/17 21:50 Date of discharge: 08/20/17 Attending physician: AREN DUNN 08/18/17 21:25 Consult to Physician [CONS] Routine Comment: Dr. Harley spoke with Dr. Moreau @[id number] Consulting Provider: CARLOS MOREAU Physician Instructions: Reason For Exam: Dialysis 08/19/17 06:00 Consult to Physician [CONS] Routine Comment: Consulting Provider: YUKI HERNANDEZ Physician Instructions: Reason For Exam: RECTAL BLEED,HEPATOSPLENIC LESION, PANCREATIC DUCT Primary care physician: [employer] Hospitalization Reason for admission: abnormal lab/severe anemia Condition: Fair Pertinent studies: Abdomen x-ray; nonspecific intestinal gas pattern moderate residual stool, moderate cardiomegaly CT abdomen and pelvis; this density of the liver or spleen such as hemochromatosis atrophied kidney Renal osteodystrophy Multiple calcified lesions in the uterus fibroids Cystic lesion in the right adnexal region always insist Appendix not visualized Generalized anasarca Bilateral pancreatic duct measuring 11 mm Procedures: 2 units PRBC transfusion Hospital course: --Rectal bleeding; Supportive care, GI consulted, possible endoscopy --Severe acute blood loss anemia; hemoglobin 5.9 Type and cross and transfuse 2 units of PRBC during dialysis Closely monitor H&H additional PRBC as needed --HIV/AIDS; patient follows with private ID Continue current management --End Stage renal disease on hemodialysis; nephrology consulted HD per schedule, transfusion during dialysis --Hypertension; moderate control, continue current antihypertensives And when necessary hydralazine; --DVT prophylaxis; SCDs Disposition: DC- TO HOME OR SELFCARE Time spent for discharge: 33 min Core Measure Documentation - Palliative Care Palliative Care/ Comfort Measures: Not Applicable - Core Measures Any of the following diagnoses?: none Exam - Constitutional Vitals: Temp Pulse Resp BP Pulse Ox 98.6 F 90 14 187/93 100 08/20/17 08:26 08/20/17 08:26 08/20/17 08:26 08/20/17 08:26 08/20/17 08:26 General appearance: Present: no acute distress, well-nourished - EENT Eyes: Present: PERRL, EOM intact - Neck Neck: Present: supple, normal ROM - Respiratory Respiratory effort: normal Respiratory: bilateral: diminished, negative: rales, rhonchi, wheezing - Cardiovascular Rhythm: regular Heart Sounds: Present: S1 & S2 - Extremities Extremities: no ischemia, No edema - Abdominal General gastrointestinal: Present: soft, non-tender, non-distended, normal bowel sounds - Integumentary Integumentary: Present: clear, warm - Musculoskeletal Musculoskeletal: strength equal bilaterally, generalized weakness - Psychiatric Psychiatric: appropriate mood/affect, cooperative - Neurologic Neurologic: CNII-XII intact, moves all extremities Plan Activity: no restrictions Diet: renal Additional Instructions: Follow renal/hemodialysis per schedule. Follow/ private M.D./health Department per schedule Follow up with: PRIMARY CAREMD [Primary Care Provider] - 3-5 Days LISSETH BUENROSTRO MD [Staff Physician] - 7 Days ARGELIA FRAIRE MD [Staff Physician] - 7 Days Forms: Discharge Signature Page
[2017-08-25] MEDS ORDERED: VIREAD PO SCH ×2 (10:00→22:00)
== END 2017-08-20 14:59 | disposition home or self-care (01) | DRG 377 ==
LOC: ED 17:20 → 4A 21:50
PROVIDERS: ADMIT Internal Medicine; ATTEND Internal Medicine
PROC: 30233N1 Transfusion of Nonautologous Red Blood Cells into Peripheral Vein, Percutaneous Approach (ICD-10-PCS; principal; 2017-08-19)
PROC: 5A1D70Z Performance of Urinary Filtration, Intermittent, Less than 6 Hours Per Day (ICD-10-PCS; 2017-08-19)
DX: K62.5 Hemorrhage of anus and rectum (principal); N18.6 End stage renal disease; B20 Human immunodeficiency virus [HIV] disease; D62 Acute posthemorrhagic anemia; I13.2 Hypertensive heart and chronic kidney disease with heart failure and with stage 5 chronic kidney disease, or end stage renal disease; Z88.6 Allergy status to analgesic agent; Z88.8 Allergy status to other drugs, medicaments and biological substances; Z99.2 Dependence on renal dialysis; I50.9 Heart failure, unspecified; K21.9 Gastro-esophageal reflux disease without esophagitis
CPT/HCPCS: 36415; 36430; 74019; 74176; 80053; 85014; 85018; 85025; 85610; 86850; 86900; 86901; 86920; C9113; J0885; J1170; J2405; J7030; P9016

== ENCOUNTER 2017-08-23 14:17 | Inpatient (IN) | payer MEDICARE ==
[2017-08-23] MEDS ORDERED: PEPCID IV ONE (15:36)
[2017-08-23] MEDS ORDERED: NORCO 5/325 PO ONE (15:36)
--- NOTE | 2017-08-23 15:36 | Emergency Department Report ---
Blank Doc - Documentation Documentation: Patient is a 66-year-old Female who was admitted last week for GI bleed. Patient has end-stage renal disease. Patient states she has some diffuse abdominal pain as well. Patient was to be scoped while in hospital last week she left AGAINST MEDICAL ADVICE because she had to go to a . Patient returned because she is continued to have GI bleeding. Patient denies any fevers chills nausea vomiting at this time. Patient's last dialysis was yesterday.
[2017-08-23 15:49] LABS: Basophils # (Auto) 0.1 K/mm3 (0.0-0.1); Eosinophils # (Auto) 0.1 K/mm3 (0.0-0.4); Eosinophils % (Auto) 1.3 % (0.0-4.3); Hematocrit 23.7 % (30.3-42.9); Hemoglobin 7.6 gm/dl (10.1-14.3); Lymphocytes # (Auto) 0.8 K/mm3 (1.2-5.4); Lymphocytes % (Auto) 10.2 % (13.4-35.0); Mean Corpuscular HGB Conc 32 % (30-34); Mean Corpuscular Hemoglobin 29 pg (28-32); Mean Corpuscular Volume 90 fl (79-97); Monocytes # (Auto) 0.3 K/mm3 (0.0-0.8); Monocytes % (Auto) 3.7 % (0.0-7.3); Platelet Count 130 K/mm3 (140-440); Red Blood Count 2.64 M/mm3 (3.65-5.03); Red Cell Distribution Width 18.7 % (13.2-15.2)
[2017-08-23 16:03] LABS: INR 1.29 (0.87-1.13)
[2017-08-23 16:09] LABS: Calcium 8.3 mg/dL (8.4-10.2)
[2017-08-23 16:20] LABS: Partial Thromboplastin Time 40.1 Sec. (24.2-36.6)
--- NOTE | 2017-08-23 18:10 | Emergency Department Report ---
ED GI Bleed HPI - General Chief complaint: GI Bleed Stated complaint: RECTAL BLEEDING Time Seen by Provider: 08/23/17 15:26 Source: patient Mode of arrival: Ambulatory Limitations: No Limitations - History of Present Illness Initial comments: Last week pt had blood in her stool and abd pain. Pt had a hgb of 5. She received 2U of blood. Pt was scheduled for a colonoscopy, but she has attended and was unable to go through with it. The patient was discharged home 4 days ago. Today, her rectal bleeding increased and she had abdominal pain. So, she came back to the ER for reevaluation. Denies lightheadedness, weakness. Her abdominal pain is her usual abdominal pain. Severity scale (0 -10): 8 - Related Data Home Medications Medication Instructions Recorded Confirmed Last Taken Efavirenz [Sustiva] 600 mg PO DAILY 03/18/16 08/23/17 06/23/16 Minoxidil [Loniten] 10 mg PO QDAY 03/18/16 08/23/17 06/23/16 Terazosin [Hytrin] 10 mg PO BID 03/18/16 08/23/17 06/23/16 Tenofovir [Viread] 300 mg PO QWEEK 08/30/16 08/23/17 Unknown B Complex 11/Folic/C/Biot/Zinc 1 each PO QDAY 08/23/17 08/23/17 Unknown [Dialyvite with Zinc Tablet] cloNIDine [Catapres] 0.3 mg PO TID 08/23/17 08/23/17 Unknown lamiVUDine [Epivir] 150 mg PO QPM 08/23/17 08/23/17 Unknown Previous Rx's Medication Instructions Recorded Last Taken Type ALBUTEROL Inhaler [ProAir HFA 2 puff IH QID PRN #1 inhalation 07/27/17 Unknown Rx Inhaler] Fluticasone [Flonase] 1 spray NS QDAY #1 bottle 07/27/17 Unknown Rx Allergies Allergy/AdvReac Type Severity Reaction Status Date / Time codeine Allergy HALLUCINATE Verified 08/18/17 17:25 hydralazine AdvReac Vomiting Verified 08/18/17 17:25 ED Review of Systems ROS: Stated complaint: RECTAL BLEEDING Other details as noted in HPI Comment: All other systems reviewed and negative Gastrointestinal: abdominal pain, hematochezia ED Past Medical Hx - Past Medical History Previous Medical History?: Yes Hx Hypertension: Yes Hx Heart Attack/AMI: No Hx Congestive Heart Failure: Yes Hx Diabetes: No Hx GERD: Yes Hx Liver Disease: Yes (abnormal liver function test, coagulopathy, mass on liver ) Hx Renal Disease: Yes Hx Arthritis: No Hx Asthma: No Hx COPD: No Hx HIV: Yes - Surgical History Past Surgical History?: Yes Hx Coronary Stent: No Hx Open Heart Surgery: No Hx Pacemaker: No Hx Internal Defibrillator: No Hx Cholecystectomy: No Hx Appendectomy: Yes Hx Breast Surgery: No Additional Surgical History: PD catheter -removed. FISTULA LEFT ARM - Social History Smoking Status: Current Every Day Smoker Substance Use Type: Prescribed - Medications Home Medications: Home Medications Medication Instructions Recorded Confirmed Last Taken Type Efavirenz [Sustiva] 600 mg PO DAILY 03/18/16 08/23/17 06/23/16 History Minoxidil [Loniten] 10 mg PO QDAY 03/18/16 08/23/17 06/23/16 History Terazosin [Hytrin] 10 mg PO BID 03/18/16 08/23/17 06/23/16 History Tenofovir [Viread] 300 mg PO QWEEK 08/30/16 08/23/17 Unknown History ALBUTEROL Inhaler [ProAir HFA 2 puff IH QID PRN #1 inhalation 07/27/17 08/23/17 Unknown Rx Inhaler] Fluticasone [Flonase] 1 spray NS QDAY #1 bottle 07/27/17 08/23/17 Unknown Rx B Complex 11/Folic/C/Biot/Zinc 1 each PO QDAY 08/23/17 08/23/17 Unknown History [Dialyvite with Zinc Tablet] cloNIDine [Catapres] 0.3 mg PO TID 08/23/17 08/23/17 Unknown History lamiVUDine [Epivir] 150 mg PO QPM 08/23/17 08/23/17 Unknown History ED Physical Exam - General Limitations: No Limitations General appearance: alert, in no apparent distress - Head Head exam: Present: atraumatic, normocephalic - Eye Eye exam: Present: normal appearance - ENT ENT exam: Present: mucous membranes moist - Neck Neck exam: Present: normal inspection - Respiratory Respiratory exam: Present: normal lung sounds bilaterally. Absent: respiratory distress - Cardiovascular Cardiovascular Exam: Present: regular rate, normal rhythm. Absent: systolic murmur, diastolic murmur, rubs, gallop - GI/Abdominal GI/Abdominal exam: Present: soft, tenderness (RUQ, RLQ), normal bowel sounds. Absent: guarding, rebound - Rectal Rectal exam: Present: heme (+) stool, bloody stool - Extremities Exam Extremities exam: Present: normal inspection - Back Exam Back exam: Present: normal inspection - Neurological Exam Neurological exam: Present: alert, oriented X3 - Psychiatric Psychiatric exam: Present: normal affect, normal mood - Skin Skin exam: Present: warm, dry, intact, normal color. Absent: rash ED Course Vital Signs 08/23/17 14:25 Temperature 98.9 F Pulse Rate 86 Respiratory 18 Rate Blood Pressure 131/47 O2 Sat by Pulse 97 Oximetry ED Medical Decision Making - Lab Data Result diagrams: 08/23/17 15:39 08/23/17 15:39 - Medical Decision Making 66-year-old female with past medical history of ESRD with dialysis Tuesday/ Tuesday/Tuesday, CHF that presents to the ER with rectal bleeding. Vital signs are stable. Hemoglobin is also stable. Patient has hematochezia on exam. She had a CT abdomen/pelvis done a week ago. Given that this is her usual abdominal pain, I do not see a need to repeat the CT at this point in time. Patient will be admitted for GI evaluation and possible colonoscopy. - Differential Diagnosis malignancy, lower versus upper GI bleed, coagulopathy Critical care attestation.: If time is entered above; I have spent that time in minutes in the direct care of this critically ill patient, excluding procedure time. ED Disposition Clinical Impression: Lower GI bleed Disposition: OP ADMIT IP TO THIS HOSP Is pt being admited?: Yes Does the pt Need Aspirin: No Condition: Stable Referrals: PRIMARY CARE, [Primary Care Provider] - 3-5 Days Forms: Accompanied Note
[2017-08-23] MEDS ORDERED: ZOFRAN ODT PO ONE (18:25)
[2017-08-23] MEDS ORDERED: DILAUDID IV ONE (18:26)
--- NOTE | 2017-08-23 22:59 | History and Physical Report ---
History of Present Illness Date of examination: 08/23/17 Date of admission: 08/23/17 18:10 Chief complaint: Chief complaint: Lower GI bleed Since morning--one episode History of present illness: History of Present Illness: 66-year-old black female with history of end-stage disease hypertension and HIV presents with lower GI bleeds since morning. Patient was recently admitted for GI bleed. Patient had a hemoglobin of 5 and received 2 units of blood. Patient was scheduled for colonoscopy but she signed out AGAINST MEDICAL ADVICE because she had attend a . This is 4 days ago. Today the rectal bleeding is recurred because of which patient came back. No syncope or lightheadedness. No exacerbating or relieving factors. Past Medical History Previous Medical History?: Yes Hx Hypertension: Yes Hx Congestive Heart Failure: Yes Hx GERD: Yes Hx Liver Disease: Yes (abnormal liver function test, coagulopathy, mass on liver ) Hx Renal Disease: Yes Hx HIV: Yes Surgical History Past Surgical History?: Yes Hx Appendectomy: Yes Additional Surgical History: PD catheter -removed. FISTULA LEFT ARM Social History Smoking Status: Current Every Day Smoker Substance Use Type: Prescribed Family history Htn -Medications Home Medications: Home Medications Medication Instructions Recorded Confirmed Last Taken Type Efavirenz [Sustiva] 600 mg PO DAILY 03/18/16 08/23/17 06/23/16 History Minoxidil [Loniten] 10 mg PO QDAY 03/18/16 08/23/17 06/23/16 History Terazosin [Hytrin] 10 mg PO BID 03/18/16 08/23/17 06/23/16 History Tenofovir [Viread] 300 mg PO QWEEK 08/30/16 08/23/17 Unknown History ALBUTEROL Inhaler [ProAir HFA 2 puff IH QID PRN #1 inhalation 07/27/17 08/23/17 Unknown Rx Inhaler] Fluticasone [Flonase] 1 spray NS QDAY #1 bottle 07/27/17 08/23/17 Unknown Rx B Complex 11/Folic/C/Biot/Zinc 1 each PO QDAY 08/23/17 08/23/17 Unknown History [Dialyvite with Zinc Tablet] cloNIDine [Catapres] 0.3 mg PO TID 08/23/17 08/23/17 Unknown History lamiVUDine [Epivir] 150 mg PO QPM 08/23/17 08/23/17 Unknown History Review of Systems ROS: Stated complaint: RECTAL BLEEDING Other details as noted in HPI Comment: All other systems reviewed and negative Gastrointestinal: abdominal pain, hematochezia Medications and Allergies Allergies Allergy/AdvReac Type Severity Reaction Status Date / Time codeine Allergy HALLUCINATE Verified 08/18/17 17:25 hydralazine AdvReac Vomiting Verified 08/18/17 17:25 Home Medications Medication Instructions Recorded Confirmed Last Taken Type Efavirenz [Sustiva] 600 mg PO DAILY 03/18/16 08/23/17 06/23/16 History Minoxidil [Loniten] 10 mg PO QDAY 03/18/16 08/23/17 06/23/16 History Terazosin [Hytrin] 10 mg PO BID 03/18/16 08/23/17 06/23/16 History Tenofovir [Viread] 300 mg PO QWEEK 08/30/16 08/23/17 Unknown History ALBUTEROL Inhaler [ProAir HFA 2 puff IH QID PRN #1 inhalation 07/27/17 08/23/17 Unknown Rx Inhaler] Fluticasone [Flonase] 1 spray NS QDAY #1 bottle 07/27/17 08/23/17 Unknown Rx B Complex 11/Folic/C/Biot/Zinc 1 each PO QDAY 08/23/17 08/23/17 Unknown History [Dialyvite with Zinc Tablet] cloNIDine [Catapres] 0.3 mg PO TID 08/23/17 08/23/17 Unknown History lamiVUDine [Epivir] 150 mg PO QPM 08/23/17 08/23/17 Unknown History Exam - Constitutional Vitals: Temp Pulse Resp BP Pulse Ox 97.9 F 87 20 167/74 100 08/23/17 19:26 08/23/17 19:26 08/23/17 19:26 08/23/17 19:26 08/23/17 19:26 General appearance: Present: no acute distress, well-nourished - EENT Eyes: Present: PERRL ENT: hearing intact, clear oral mucosa - Neck Neck: Present: supple, normal ROM - Respiratory Respiratory effort: normal Respiratory: bilateral: CTA - Cardiovascular Heart rate: 80 Rhythm: regular Heart Sounds: Present: S1 & S2. Absent: rub, click - Extremities Extremities: no ischemia, pulses intact, pulses symmetrical, No edema Peripheral Pulses: within normal limits - Abdominal General gastrointestinal: Present: soft, non-tender, non-distended, normal bowel sounds Female genitourinary: Present: normal - Rectal Rectal Exam: stool bloody - Integumentary Integumentary: Present: clear, warm, dry - Musculoskeletal Musculoskeletal: gait normal, strength equal bilaterally - Psychiatric Psychiatric: appropriate mood/affect, intact judgment & insight - Neurologic Neurologic: CNII-XII intact, moves all extremities - Allied Health Allied health notes reviewed: nursing, case management Results - Labs CBC & Chem 7: 08/23/17 15:39 08/23/17 15:39 Labs: Laboratory Last Values WBC 8.3 K/mm3 (4.5-11.0) 08/23/17 15:39 RBC 2.64 M/mm3 (3.65-5.03) L 08/23/17 15:39 Hgb 7.6 gm/dl (10.1-14.3) L 08/23/17 15:39 Hct 23.7 % (30.3-42.9) L 08/23/17 15:39 MCV 90 fl (79-97) 08/23/17 15:39 MCH 29 pg (28-32) 08/23/17 15:39 MCHC 32 % (30-34) 08/23/17 15:39 RDW 18.7 % (13.2-15.2) H 08/23/17 15:39 Plt Count 130 K/mm3 (140-440) L 08/23/17 15:39 Lymph % (Auto) 10.2 % (13.4-35.0) L 08/23/17 15:39 Bailey % (Auto) 3.7 % (0.0-7.3) 08/23/17 15:39 Eos % (Auto) 1.3 % (0.0-4.3) 08/23/17 15:39 Baso % (Auto) 1.0 % (0.0-1.8) 08/23/17 15:39 Lymph # 0.8 K/mm3 (1.2-5.4) L 08/23/17 15:39 Bailey # 0.3 K/mm3 (0.0-0.8) 08/23/17 15:39 Eos # 0.1 K/mm3 (0.0-0.4) 08/23/17 15:39 Baso # 0.1 K/mm3 (0.0-0.1) 08/23/17 15:39 Seg Neutrophils % 83.8 % (40.0-70.0) H 08/23/17 15:39 Seg Neutrophils # 6.9 K/mm3 (1.8-7.7) 08/23/17 15:39 PT 16.8 Sec. (12.2-14.9) H 08/23/17 15:39 INR 1.29 (0.87-1.13) H 08/23/17 15:39 APTT 40.1 Sec. (24.2-36.6) H 08/23/17 15:39 Sodium 140 mmol/L (137-145) 08/23/17 15:39 Potassium 3.8 mmol/L (3.6-5.0) 08/23/17 15:39 Chloride 95.7 mmol/L (98-107) L 08/23/17 15:39 Carbon Dioxide 30 mmol/L (22-30) 08/23/17 15:39 Anion Gap 18 mmol/L 08/23/17 15:39 BUN 20 mg/dL (7-17) H 08/23/17 15:39 Creatinine 4.6 mg/dL (0.7-1.2) H 08/23/17 15:39 Estimated GFR 11 ml/min 08/23/17 15:39 BUN/Creatinine Ratio 4 % 08/23/17 15:39 Glucose 117 mg/dL (65-100) H 08/23/17 15:39 Calcium 8.3 mg/dL (8.4-10.2) L 08/23/17 15:39 Total Bilirubin 0.40 mg/dL (0.1-1.2) 08/23/17 15:39 AST 15 units/L (5-40) 08/23/17 15:39 ALT 5 units/L (7-56) L 08/23/17 15:39 Alkaline Phosphatase 141 units/L (35-129) H 08/23/17 15:39 Total Protein 5.6 g/dL (6.3-8.2) L 08/23/17 15:39 Albumin 3.0 g/dL (3.9-5) L 08/23/17 15:39 Albumin/Globulin Ratio 1.2 % 08/23/17 15:39 Lipase 18 units/L (13-60) 08/23/17 15:39 Short CBC 08/23/17 Range/Units 15:39 WBC 8.3 (4.5-11.0) K/mm3 Hgb 7.6 L (10.1-14.3) gm/dl Hct 23.7 L (30.3-42.9) % Plt Count 130 L (140-440) K/mm3 BMP 08/23/17 15:39 Sodium 140 Potassium 3.8 Chloride 95.7 L Carbon Dioxide 30 BUN 20 H Creatinine 4.6 H Glucose 117 H Calcium 8.3 L Liver Function 08/23/17 Range/Units 15:39 Total Bilirubin 0.40 (0.1-1.2) mg/dL AST 15 (5-40) units/L ALT 5 L (7-56) units/L Alkaline Phosphatase 141 H (35-129) units/L Albumin 3.0 L (3.9-5) g/dL - Imaging and Cardiology EKG: report reviewed Assessment and Plan Advance Directives: Yes (full code) VTE prophylaxis?: Chemical Plan of care discussed with patient/family: Yes - Patient Problems (1) Lower GI bleed Current Visit: Yes Status: Acute Plan to address problem: Patient to be rescheduled for colonoscopy. IV Protonix initiated GI consult requested (2) Anemia due to acute blood loss Current Visit: No Status: Acute Plan to address problem: To transfuse 1 unit of blood (3) HIV (human immunodeficiency virus infection) Current Visit: Yes Status: Chronic Plan to address problem: Continue antiretrovirals (4) ESRD on hemodialysis Current Visit: Yes Status: Chronic Plan to address problem: Continue hemodialysis Patient follows with Dr. Zambrano Patient is on dialysis Tuesday and Tuesday (5) Hypertension Current Visit: Yes Status: Chronic Qualifiers: Hypertension type: essential hypertension Qualified Code(s): I10 - Essential (primary) hypertension Plan to address problem: Continue antihypertensives (6) DVT prophylaxis Current Visit: Yes Status: Acute Plan to address problem: Only SCDs
[2017-08-23] MEDS ORDERED: ZOFRAN IV PRN (23:05)
[2017-08-23] MEDS ORDERED: TYLENOL PO PRN (23:05)
[2017-08-23] MEDS ORDERED: MORPHINE IV PRN (23:05)
[2017-08-23] MEDS ORDERED: PROAIR IH PRN (23:07)
[2017-08-23] MEDS ORDERED: NACL 0.9% 500 ML 500 ML IV ONE (23:08)
[2017-08-23] MEDS ORDERED: PROVENTIL IH PRN (23:09)
[2017-08-23] MEDS ORDERED: CATAPRES-TTS PATCH TD SCH (23:15)
[2017-08-24 00:16] LABS: Hematocrit 23.1 % (30.3-42.9); Hemoglobin 7.5 gm/dl (10.1-14.3)
[2017-08-24] MEDS ORDERED: DILAUDID IV ONE (01:05)
[2017-08-24] MEDS: SODIUM CHLORIDE FLUSH SYRINGE 10 ML IV PRN (01:43)
[2017-08-24] MEDS: MINIPRESS PO SCH ×2 (04:58→21:24)
[2017-08-24] MEDS ORDERED: LONITEN PO SCH (05:00)
[2017-08-24 06:22] LABS: Basophils # (Auto) 0.1 K/mm3 (0.0-0.1); Basophils % (Auto) 1.2 % (0.0-1.8); Eosinophils # (Auto) 0.1 K/mm3 (0.0-0.4); Eosinophils % (Auto) 1.1 % (0.0-4.3); Hematocrit 22.8 % (30.3-42.9); Hemoglobin 7.4 gm/dl (10.1-14.3); Lymphocytes % (Auto) 12.4 % (13.4-35.0); Mean Corpuscular HGB Conc 33 % (30-34); Mean Corpuscular Hemoglobin 29 pg (28-32); Mean Corpuscular Volume 89 fl (79-97); Monocytes # (Auto) 0.3 K/mm3 (0.0-0.8); Monocytes % (Auto) 3.6 % (0.0-7.3); Platelet Count 139 K/mm3 (140-440); Red Blood Count 2.57 M/mm3 (3.65-5.03); Red Cell Distribution Width 18.7 % (13.2-15.2)
[2017-08-24 06:51] LABS: Albumin 2.7 g/dL (3.9-5); BUN/Creatinine Ratio 4; Blood Urea Nitrogen 24 mg/dL (7-17); Calcium 8.5 mg/dL (8.4-10.2); Hemolysis Index 0
[2017-08-24 06:52] LABS: Alanine Aminotransferase < 5 units/L (7-56)
--- NOTE | 2017-08-24 09:15 | Gastroenterology Consultation ---
<JOANA ZAPATA - Last Filed: 08/24/17 09:17> History of Present Illness - Reason for Consult Consult date: 08/24/17 GI bleed Requesting physician: ARABELLA MACHADO - History of Present Illness Patient is a 66 y/o female eith H of ESRD on HD, CHF, HIV, and HTN who presented to ED with c/o rectal bleeding. She is previously known to our service from a recent consult on 08/19/2017 for similar symptoms. She was scheduled for a colonoscopy at that time but signed out AMA due to having to attend a . This morning patient was resting in bed w/o acute distress. She reports rectal bleeding reoccurred yesterday with bright red blood in toilet after a BM x 1 episode. No active signs of bleeding today. No hematemesis or melena. Admits to having some intermittent abd pain but no current pain. Denies wt loss, CP, SOB, dizziness, N/V, dysphagia, diarrhea, or constipation. EGD 10/2016 revealed gastritis and esophagitis. Last colonoscopy approximately 2-3 years ago revealed polyps per patient. No known Fhx of colon CA. Past History Past Medical History: ESRD, heart failure, hypertension, other (HIV) Past Surgical History: appendectomy, Other (removal of PD catheter, AV fistula) Social history: smoking Medications and Allergies Allergies Allergy/AdvReac Type Severity Reaction Status Date / Time codeine Allergy HALLUCINATE Verified 08/18/17 17:25 morphine Allergy hallucinati Verified 08/24/17 00:04 on hydralazine AdvReac Vomiting Verified 08/18/17 17:25 Home Medications Medication Instructions Recorded Confirmed Last Taken Type Efavirenz [Sustiva] 600 mg PO DAILY 03/18/16 08/23/17 06/23/16 History Minoxidil [Loniten] 10 mg PO QDAY 03/18/16 08/23/17 06/23/16 History Terazosin [Hytrin] 10 mg PO BID 03/18/16 08/23/17 06/23/16 History Tenofovir [Viread] 300 mg PO QWEEK 08/30/16 08/23/17 Unknown History ALBUTEROL Inhaler [ProAir HFA 2 puff IH QID PRN #1 inhalation 07/27/17 08/23/17 Unknown Rx Inhaler] Fluticasone [Flonase] 1 spray NS QDAY #1 bottle 07/27/17 08/23/17 Unknown Rx B Complex 11/Folic/C/Biot/Zinc 1 each PO QDAY 08/23/17 08/23/17 Unknown History [Dialyvite with Zinc Tablet] cloNIDine [Catapres] 0.3 mg PO TID 08/23/17 08/23/17 Unknown History lamiVUDine [Epivir] 150 mg PO QPM 08/23/17 08/23/17 Unknown History Active Meds: Active Medications Acetaminophen (Tylenol) 650 mg PO Q4H PRN PRN Reason: Pain MILD(1-3)/Fever >100.5/SAEED Albuterol (Proventil) 2.5 mg IH Q4HRT PRN PRN Reason: Shortness Of Breath Clonidine HCl (Catapres-Tts Patch) 0.3 mg TD [facility] Last Admin: 08/24/17 00:07 Dose: 0.3 mg Minoxidil (Loniten) 10 mg PO QDAY [facility] Last Admin: 08/24/17 04:57 Dose: 10 mg Ondansetron HCl (Zofran) 4 mg IV Q8H PRN PRN Reason: Nausea And Vomiting Pantoprazole Sodium (Protonix) 40 mg IV BID [facility]IS[facility] Prazosin HCl (Minipress) 10 mg PO Q12HR [facility] Last Admin: 08/24/17 04:58 Dose: 10 mg Sodium Chloride (Sodium Chloride Flush Syringe 10 Ml) 10 ml IV BID CARISSA Sodium Chloride (Sodium Chloride Flush Syringe 10 Ml) 10 ml IV PRN PRN PRN Reason: LINE FLUSH Last Admin: 08/24/17 01:43 Dose: 10 ml Review of Systems - Review of Systems All systems: negative Gastrointestinal: hematochezia Exam - Constitutional Vital Signs: Temp Pulse Resp BP Pulse Ox 99.0 F 112 H 18 202/86 95 08/24/17 03:58 08/24/17 04:58 08/24/17 03:58 08/24/17 04:58 08/24/17 03:58 General appearance: no acute distress - EENT Eyes: PERRL, EOM intact ENT: hearing intact - Respiratory Respiratory: bilateral: CTA - Cardiovascular Rhythm: other (murmur) Heart Sounds: Present: S1 & S2 - Gastrointestinal General gastrointestinal: Present: soft, non-tender, non-distended, normal bowel sounds - Neurologic Neurological: alert and oriented x3 - Labs CBC & Chem 7: 08/24/17 05:37 08/24/17 05:37 Lab Results: Laboratory Results - last 24 hr 08/23/17 08/23/17 08/23/17 15:39 15:39 15:39 WBC 8.3 RBC 2.64 L Hgb 7.6 L Hct 23.7 L MCV 90 MCH 29 MCHC 32 RDW 18.7 H Plt Count 130 L Lymph % (Auto) 10.2 L Pitt % (Auto) 3.7 Eos % (Auto) 1.3 Baso % (Auto) 1.0 Lymph # 0.8 L Pitt # 0.3 Eos # 0.1 Baso # 0.1 Seg Neutrophils % 83.8 H Seg Neutrophils # 6.9 PT 16.8 H INR 1.29 H APTT 40.1 H Sodium 140 Potassium 3.8 Chloride 95.7 L Carbon Dioxide 30 Anion Gap 18 BUN 20 H Creatinine 4.6 H Estimated GFR 11 BUN/Creatinine Ratio 4 Glucose 117 H Calcium 8.3 L Total Bilirubin 0.40 AST 15 ALT 5 L Alkaline Phosphatase 141 H Total Protein 5.6 L Albumin 3.0 L Albumin/Globulin Ratio 1.2 Lipase 18 Blood Type Antibody Screen Crossmatch 08/23/17 08/23/17 08/24/17 23:42 23:42 05:37 WBC 8.2 RBC 2.57 L Hgb 7.5 L 7.4 L Hct 23.1 L 22.8 L MCV 89 MCH 29 MCHC 33 RDW 18.7 H Plt Count 139 L Lymph % (Auto) 12.4 L Pitt % (Auto) 3.6 Eos % (Auto) 1.1 Baso % (Auto) 1.2 Lymph # 1.0 L Pitt # 0.3 Eos # 0.1 Baso # 0.1 Seg Neutrophils % 81.7 H Seg Neutrophils # 6.7 PT INR APTT Sodium Potassium Chloride Carbon Dioxide Anion Gap BUN Creatinine Estimated GFR BUN/Creatinine Ratio Glucose Calcium Total Bilirubin AST ALT Alkaline Phosphatase Total Protein Albumin Albumin/Globulin Ratio Lipase Blood Type B POSITIVE Antibody Screen Negative Crossmatch See Detail 08/24/17 05:37 WBC RBC Hgb Hct MCV MCH MCHC RDW Plt Count Lymph % (Auto) Pitt % (Auto) Eos % (Auto) Baso % (Auto) Lymph # Pitt # Eos # Baso # Seg Neutrophils % Seg Neutrophils # PT INR APTT Sodium 140 Potassium 3.6 Chloride 96.2 L Carbon Dioxide 29 Anion Gap 18 BUN 24 H Creatinine 5.4 H Estimated GFR 10 BUN/Creatinine Ratio 4 Glucose 97 Calcium 8.5 Total Bilirubin 0.30 AST 14 ALT < 5 L Alkaline Phosphatase 142 H Total Protein 5.8 L Albumin 2.7 L Albumin/Globulin Ratio 0.9 Lipase Blood Type Antibody Screen Crossmatch Assessment and Plan 1.anemia 2.hematochezia -HGB 7.4 -continue to monitor H/H and transfuse as needed -hold blood thinning medications -BRBPR x 1 episode yesterday-no active signs of bleeding today -currently HD stable -last EGD 10/2016 showed gastritis and esophagitis -last colonoscopy approximately 2-3 years ago showed polyps -etiology unclear- possibly anorectal vs diverticular vs other -will schedule for a colonoscopy in am -clear liquids today then NPO after MN -continue supportive care <ARNAV COLLINS - Last Filed: 08/24/17 11:53> Medications and Allergies Active Meds: Active Medications Acetaminophen (Tylenol) 650 mg PO Q4H PRN PRN Reason: Pain MILD(1-3)/Fever >100.5/SAEED Albuterol (Proventil) 2.5 mg IH Q4HRT PRN PRN Reason: Shortness Of Breath Clonidine HCl (Catapres-Tts Patch) 0.3 mg TD Tu [facility] Last Admin: 08/24/17 00:07 Dose: 0.3 mg Hydromorphone HCl (Dilaudid) 0.5 mg IV Q8HR PRN PRN Reason: Pain , Severe (7-10) Last Admin: 08/24/17 11:36 Dose: 0.5 mg Minoxidil (Loniten) 10 mg PO QDAY [facility] Last Admin: 08/24/17 04:57 Dose: 10 mg Ondansetron HCl (Zofran) 4 mg IV Q8H PRN PRN Reason: Nausea And Vomiting Last Admin: 08/24/17 11:36 Dose: 4 mg Pantoprazole Sodium (Protonix) 40 mg IV BID [facility] Last Admin: 08/24/17 09:16 Dose: 40 mg Polyethylene Glycol/Electrolytes (Golytely) 4,000 ml PO ONCE NR Stop: 08/24/17 12:00 Prazosin HCl (Minipress) 10 mg PO Q12HR [facility] Last Admin: 08/24/17 04:58 Dose: 10 mg Sodium Chloride (Sodium Chloride Flush Syringe 10 Ml) 10 ml IV BID [facility] Last Admin: 08/24/17 09:17 Dose: 10 ml Sodium Chloride (Sodium Chloride Flush Syringe 10 Ml) 10 ml IV PRN PRN PRN Reason: LINE FLUSH Last Admin: 08/24/17 01:43 Dose: 10 ml Exam - Constitutional Vital Signs: Temp Pulse Resp BP Pulse Ox 99.3 F 109 H 20 169/68 98 08/24/17 08:00 08/24/17 08:00 08/24/17 08:00 08/24/17 08:00 08/24/17 08:00 - Labs CBC & Chem 7: 08/24/17 05:37 08/24/17 05:37 Lab Results: Laboratory Results - last 24 hr 08/23/17 08/23/17 08/23/17 15:39 15:39 15:39 WBC 8.3 RBC 2.64 L Hgb 7.6 L Hct 23.7 L MCV 90 MCH 29 MCHC 32 RDW 18.7 H Plt Count 130 L Lymph % (Auto) 10.2 L Pitt % (Auto) 3.7 Eos % (Auto) 1.3 Baso % (Auto) 1.0 Lymph # 0.8 L Pitt # 0.3 Eos # 0.1 Baso # 0.1 Seg Neutrophils % 83.8 H Seg Neutrophils # 6.9 PT 16.8 H INR 1.29 H APTT 40.1 H Sodium 140 Potassium 3.8 Chloride 95.7 L Carbon Dioxide 30 Anion Gap 18 BUN 20 H Creatinine 4.6 H Estimated GFR 11 BUN/Creatinine Ratio 4 Glucose 117 H Calcium 8.3 L Total Bilirubin 0.40 AST 15 ALT 5 L Alkaline Phosphatase 141 H Total Protein 5.6 L Albumin 3.0 L Albumin/Globulin Ratio 1.2 Lipase 18 Blood Type Antibody Screen Crossmatch 08/23/17 08/23/17 08/24/17 23:42 23:42 05:37 WBC 8.2 RBC 2.57 L Hgb 7.5 L 7.4 L Hct 23.1 L 22.8 L MCV 89 MCH 29 MCHC 33 RDW 18.7 H Plt Count 139 L Lymph % (Auto) 12.4 L Pitt % (Auto) 3.6 Eos % (Auto) 1.1 Baso % (Auto) 1.2 Lymph # 1.0 L Pitt # 0.3 Eos # 0.1 Baso # 0.1 Seg Neutrophils % 81.7 H Seg Neutrophils # 6.7 PT INR APTT Sodium Potassium Chloride Carbon Dioxide Anion Gap BUN Creatinine Estimated GFR BUN/Creatinine Ratio Glucose Calcium Total Bilirubin AST ALT Alkaline Phosphatase Total Protein Albumin Albumin/Globulin Ratio Lipase Blood Type B POSITIVE Antibody Screen Negative Crossmatch See Detail 08/24/17 05:37 WBC RBC Hgb Hct MCV MCH MCHC RDW Plt Count Lymph % (Auto) Pitt % (Auto) Eos % (Auto) Baso % (Auto) Lymph # Pitt # Eos # Baso # Seg Neutrophils % Seg Neutrophils # PT INR APTT Sodium 140 Potassium 3.6 Chloride 96.2 L Carbon Dioxide 29 Anion Gap 18 BUN 24 H Creatinine 5.4 H Estimated GFR 10 BUN/Creatinine Ratio 4 Glucose 97 Calcium 8.5 Total Bilirubin 0.30 AST 14 ALT < 5 L Alkaline Phosphatase 142 H Total Protein 5.8 L Albumin 2.7 L Albumin/Globulin Ratio 0.9 Lipase Blood Type Antibody Screen Crossmatch Impression/Plan - Impression Impression: The patient was personally seen and examined and I agree with the plans above. Care plan discussed with patient. Colonoscopy tomorrow. Arnav Collins MD
[2017-08-24] MEDS: PROTONIX IV SCH ×2 (09:16→21:26)
[2017-08-24] MEDS: SODIUM CHLORIDE FLUSH SYRINGE 10 ML IV SCH ×2 (09:17→21:26)
--- NOTE | 2017-08-24 09:36 | Consultation ---
History of Present Illness - History of Present Illness Thank you for the consultation ! History of present illness: Patient is a 66-year-old -[place] female who is known to our practice due to end-stage renal disease. Patient does suffer from very difficult to control hypertension for which she has been tried on several different medication and return, is the only thing that works for her as she is not willing to change any of her medication as far as her blood pressure is concerned. Patient has been admitted here with GI bleed and has been taking Renvela about 2 tablets 3 times a day with her meals due to hyperphosphatemia. Patient was recently seen on 08/19/2017 with GI bleed but left AMA Over time patient stated that she has changed her diet and lifestyle. She also does have a chronically dilated fistula in her left arm and was last seen by her vascular surgeon a month ago who told her that she has been doing well with Dr. Bahena , who has known her for quite some time. Patient upon arrival has had a severely low hemoglobin of 5 for which she did get packed red blood cell transfusion and is scheduled to get 1 more unit today Her normal dialysis days are Tuesday and patient is requesting dialysis today Past medical history significant for Very difficult to control hypertension Limited medication options available in her case Anemia and end-stage renal disease End stage renal disease currently on maintenance dialysis HIV disease Current allergies: Codeine morphine hydralazine Social history: No history of alcohol drug tobacco abuse Family history: Noncontributory for renal related disorder Review of system: Positive for GI bleed weakness dizziness uncontrolled hypertension which is chronic All other review of system negative Physical examination General: No acute distress HEENT: Oral mucosa dry no pharyngeal erythema no nasal bleeding Neck: Supple no evidence of any jugular venous distention no masses Chest: Clear to auscultation anteriorly and posteriorly Heart: Regular rate and rhythm S1 and S2 heard no S3-S4 or any pericardial rub Abdomen: Soft nontender bowel sounds present no renal bruit no suprapubic masses no CVA tenderness Extremity: Dry skin less than 1+ edema no peripheral petechial rashes Endocrine: Thyroid not enlarged Psychiatric: No evidence of any agitation or aggression noted Musculoskeletal: No joint effusion noted Lab studies and pertinent imagings were reviewed My assessment and plan are as follows End-stage renal disease: Patient is currently on maintenance hemodialysis on Tuesday stable metabolic control potassium 3.8 bicarbonate 30 Anemia in end-stage renal disease: Complicated by acute blood loss anemia, status post packed red blood cell transfusion History of peritoneal dialysis Current access is a fistula in the left arm Chronic tobacco abuse: Counseled and educated Thrombocytopenia in the setting of end-stage renal disease and HIV does need to see hematology Secondary hyperparathyroidism will check phosphorus and PTH level Accelerated hypertension requires better control, May consider increasing medications depending on how she feels Tachycardia mild: Multifactorial Check aldosteronism plasma renin level, she likely has secondary hypertension HIV disease currently on medications History of difficult to control hypertension currently on minoxidil to Zosyn as well as clonidine Admitted with GI bleed with a hemoglobin of 5, post packed red blood cell transfusion Patient was adequately counseled and educated regarding all the renal related issues Prognosis remains guarded at this time to follow, necessary labs and imagings will be honored as indicated by the clinical course We'll continue to follow and make recommendation from renal standpoint Thank you for the consultation. Past History Past Medical History: ESRD, heart failure, hypertension, other (HIV) Past Surgical History: appendectomy, Other (removal of PD catheter, AV fistula) Social history: smoking Medications and Allergies Allergies Allergy/AdvReac Type Severity Reaction Status Date / Time codeine Allergy HALLUCINATE Verified 08/18/17 17:25 morphine Allergy hallucinati Verified 08/24/17 00:04 on hydralazine AdvReac Vomiting Verified 08/18/17 17:25 Home Medications Medication Instructions Recorded Confirmed Last Taken Type Efavirenz [Sustiva] 600 mg PO DAILY 03/18/16 08/23/17 06/23/16 History Minoxidil [Loniten] 10 mg PO QDAY 03/18/16 08/23/17 06/23/16 History Terazosin [Hytrin] 10 mg PO BID 03/18/16 08/23/17 06/23/16 History Tenofovir [Viread] 300 mg PO QWEEK 08/30/16 08/23/17 Unknown History ALBUTEROL Inhaler [ProAir HFA 2 puff IH QID PRN #1 inhalation 07/27/17 08/23/17 Unknown Rx Inhaler] Fluticasone [Flonase] 1 spray NS QDAY #1 bottle 07/27/17 08/23/17 Unknown Rx B Complex 11/Folic/C/Biot/Zinc 1 each PO QDAY 08/23/17 08/23/17 Unknown History [Dialyvite with Zinc Tablet] cloNIDine [Catapres] 0.3 mg PO TID 08/23/17 08/23/17 Unknown History lamiVUDine [Epivir] 150 mg PO QPM 08/23/17 08/23/17 Unknown History Active Meds: Active Medications Acetaminophen (Tylenol) 650 mg PO Q4H PRN PRN Reason: Pain MILD(1-3)/Fever >100.5/SAEED Albuterol (Proventil) 2.5 mg IH Q4HRT PRN PRN Reason: Shortness Of Breath Clonidine HCl (Catapres-Tts Patch) 0.3 mg TD [facility] Last Admin: 08/24/17 00:07 Dose: 0.3 mg Minoxidil (Loniten) 10 mg PO QDAY [facility] Last Admin: 08/24/17 04:57 Dose: 10 mg Ondansetron HCl (Zofran) 4 mg IV Q8H PRN PRN Reason: Nausea And Vomiting Pantoprazole Sodium (Protonix) 40 mg IV BID [facility] Last Admin: 08/24/17 09:16 Dose: 40 mg Polyethylene Glycol/Electrolytes (Golytely) 4,000 ml PO ONCE ONE Stop: 08/24/17 09:29 Prazosin HCl (Minipress) 10 mg PO Q12HR [facility] Last Admin: 08/24/17 04:58 Dose: 10 mg Sodium Chloride (Sodium Chloride Flush Syringe 10 Ml) 10 ml IV BID [facility] Last Admin: 08/24/17 09:17 Dose: 10 ml Sodium Chloride (Sodium Chloride Flush Syringe 10 Ml) 10 ml IV PRN PRN PRN Reason: LINE FLUSH Last Admin: 08/24/17 01:43 Dose: 10 ml Exam - Vital Signs Vital signs: Vital Signs Temp Pulse Resp BP Pulse Ox 98.9 F 86 18 131/47 97 08/23/17 14:25 08/23/17 14:25 08/23/17 14:25 08/23/17 14:25 08/23/17 14:25 Results - Lab Results 08/24/17 14:47 08/24/17 05:37 Most recent lab results Calcium 8.5 mg/dL (8.4-10.2) 08/24/17 05:37
[2017-08-24] MEDS ORDERED: GOLYTELY PO NR (11:00)
[2017-08-24] MEDS: DILAUDID IV PRN ×2 (11:36→21:26)
--- NOTE | 2017-08-24 12:09 | Progress Note ---
Assessment and Plan - Lower GI bleed Nothing by mouth Serial H&H IV Protonix GI. Consulted and following Patient for colonoscopy in am Last colonoscopy 2-3 years ago showed colonic polyps - Abdominal pain Operative CT scan of abdomen and pelvis CT done 08/18/2017 reviewed showed dilated hypokinetic duct. - Anemia due to acute blood loss To transfuse 1 unit of blood - HIV (human immunodeficiency virus infection) Continue antiretrovirals - ESRD on hemodialysis Continue hemodialysis on MWF Nephrology consulted and following pt - Hypertension Continue antihypertensives - DVT prophylaxis Only SCDs Subjective Date of service: 08/24/17 Principal diagnosis: GI bleeding, anemia due to acute blood loss, HIV, ESRD on HD Interval history: Patient seen and examined. Complaining about abdominal pain. Objective - Exam Narrative Exam: Constitutional: Well-nourished well-developed. In no distress Head: Normocephalic atraumatic Eyes: Pupils are equal round and reactive to light Nose: No enlarged turbinates, no septal deviation. Mouth: Moist mucous membranes. Neck: Supple no thyromegaly. No bruit. No JVD Heart: Regular rate and rhythm, S1-S2 abnormal. No rubs murmurs or gallop Lungs: Clear to auscultation bilaterally no rales or rhonchi Abdomen: Soft, nontender. Bowel sound are present. Extremities: No edema no cyanosis and no clubbing. Neuro: Alert oriented Oriented x3. No focal sensory or motor deficit. Skin: No rashes no hyperemic spots Psychiatry: Euthymic. Calm. - Constitutional Vitals: Vital Signs - 12hr 08/24/17 08/24/17 08/24/17 00:50 03:58 04:20 Temperature 99.4 F 99.0 F Pulse Rate 84 109 H 99 H Respiratory 18 18 Rate Blood Pressure 143/63 202/86 Blood Pressure [Right] O2 Sat by Pulse 98 95 Oximetry 08/24/17 08/24/17 08/24/17 04:58 06:37 08:00 Temperature 99.3 F Pulse Rate 112 H 127 H 109 H Respiratory 20 Rate Blood Pressure 202/86 196/85 Blood Pressure 169/68 [Right] O2 Sat by Pulse 95 98 Oximetry - Labs CBC & Chem 7: 08/24/17 14:47 08/24/17 05:37 Labs: Abnormal lab results 08/23/17 08/23/17 08/23/17 Range/Units 15:39 15:39 15:39 RBC 2.64 L (3.65-5.03) M/mm3 Hgb 7.6 L (10.1-14.3) gm/dl Hct 23.7 L (30.3-42.9) % RDW 18.7 H (13.2-15.2) % Plt Count 130 L (140-440) K/mm3 Lymph % (Auto) 10.2 L (13.4-35.0) % Lymph # 0.8 L (1.2-5.4) K/mm3 Seg Neutrophils % 83.8 H (40.0-70.0) % PT 16.8 H (12.2-14.9) Sec. INR 1.29 H (0.87-1.13) APTT 40.1 H (24.2-36.6) Sec. Chloride 95.7 L (98-107) mmol/L BUN 20 H (7-17) mg/dL Creatinine 4.6 H (0.7-1.2) mg/dL Glucose 117 H (65-100) mg/dL Calcium 8.3 L (8.4-10.2) mg/dL ALT 5 L (7-56) units/L Alkaline Phosphatase 141 H (35-129) units/L Total Protein 5.6 L (6.3-8.2) g/dL Albumin 3.0 L (3.9-5) g/dL Crossmatch 08/23/17 08/23/17 08/24/17 Range/Units 23:42 23:42 05:37 RBC 2.57 L (3.65-5.03) M/mm3 Hgb 7.5 L 7.4 L (10.1-14.3) gm/dl Hct 23.1 L 22.8 L (30.3-42.9) % RDW 18.7 H (13.2-15.2) % Plt Count 139 L (140-440) K/mm3 Lymph % (Auto) 12.4 L (13.4-35.0) % Lymph # 1.0 L (1.2-5.4) K/mm3 Seg Neutrophils % 81.7 H (40.0-70.0) % PT (12.2-14.9) Sec. INR (0.87-1.13) APTT (24.2-36.6) Sec. Chloride (98-107) mmol/L BUN (7-17) mg/dL Creatinine (0.7-1.2) mg/dL Glucose (65-100) mg/dL Calcium (8.4-10.2) mg/dL ALT (7-56) units/L Alkaline Phosphatase (35-129) units/L Total Protein (6.3-8.2) g/dL Albumin (3.9-5) g/dL Crossmatch See Detail 08/24/17 Range/Units 05:37 RBC (3.65-5.03) M/mm3 Hgb (10.1-14.3) gm/dl Hct (30.3-42.9) % RDW (13.2-15.2) % Plt Count (140-440) K/mm3 Lymph % (Auto) (13.4-35.0) % Lymph # (1.2-5.4) K/mm3 Seg Neutrophils % (40.0-70.0) % PT (12.2-14.9) Sec. INR (0.87-1.13) APTT (24.2-36.6) Sec. Chloride 96.2 L (98-107) mmol/L BUN 24 H (7-17) mg/dL Creatinine 5.4 H (0.7-1.2) mg/dL Glucose (65-100) mg/dL Calcium (8.4-10.2) mg/dL ALT < 5 L (7-56) units/L Alkaline Phosphatase 142 H (35-129) units/L Total Protein 5.8 L (6.3-8.2) g/dL Albumin 2.7 L (3.9-5) g/dL Crossmatch
[2017-08-24 15:40] LABS: Hematocrit 21.8 % (30.3-42.9); Hemoglobin 7.1 gm/dl (10.1-14.3)
[2017-08-25] MEDS: DILAUDID IV PRN ×3 (05:45→22:39)
[2017-08-25] MEDS: SODIUM CHLORIDE FLUSH SYRINGE 10 ML IV PRN (05:45)
[2017-08-25 06:39] LABS: Basophils # (Auto) 0.1 K/mm3 (0.0-0.1); Eosinophils # (Auto) 0.1 K/mm3 (0.0-0.4); Eosinophils % (Auto) 1.2 % (0.0-4.3); Lymphocytes # (Auto) 0.9 K/mm3 (1.2-5.4); Lymphocytes % (Auto) 11.3 % (13.4-35.0); Mean Corpuscular HGB Conc 33 % (30-34); Mean Corpuscular Hemoglobin 30 pg (28-32); Mean Corpuscular Volume 89 fl (79-97); Monocytes # (Auto) 0.3 K/mm3 (0.0-0.8); Monocytes % (Auto) 4.2 % (0.0-7.3); Platelet Count 130 K/mm3 (140-440); Red Blood Count 3.04 M/mm3 (3.65-5.03); Red Cell Distribution Width 18.7 % (13.2-15.2)
[2017-08-25 06:58] LABS: Calcium 8.7 mg/dL (8.4-10.2)
[2017-08-25] MEDS ORDERED: NACL 0.9% 1000 ML 1,000 ML ONE (08:07)
[2017-08-25] MEDS ORDERED: DIPRIVAN 10 MG/ML IV ONE ×2 (08:15→10:19)
[2017-08-25] MEDS ORDERED: AMIDATE IV ONE (08:16)
--- NOTE | 2017-08-25 08:16 | Anesthesia Day of Surgery ---
Anesthesia Day of Surgery - Day of Surgery Patient Examined: Yes Patient H&P Reviewed: Yes Patient is NPO: Yes
--- NOTE | 2017-08-25 08:16 | Anesthesia Consultation ---
Anesthesia Consult and Med Hx Date of service: 08/25/17 - Airway Anesthetic Teeth Evaluation: Dentures (upper and lower) ROM Head & Neck: Adequate Mental/Hyoid Distance: Adequate Mallampati Class: Class II Intubation Access Assessment: Probably Good - Pulmonary Exam CTA: Yes - Cardiac Exam Cardiac Exam: RRR - Pre-Operative Health Status ASA Pre-Surgery Classification: ASA4 Proposed Anesthetic Plan: General, MAC - Pre-Anesthesia Comment Pre-Anesthesia Comments: HIV positive - Pulmonary Hx Smoking: No Hx Asthma: No COPD: No Hx Pneumonia: No - Cardiovascular System Hx Hypertension: Yes Hx Coronary Artery Disease: No (CHF (Echo 03/02: EJ 35%)) Hx Heart Attack/AMI: No Hx Angina: No (denies) Hx Pacemaker: No Hx Internal Defibrillator: No Hx Heart Murmur: Yes - Central Nervous System Hx Psychiatric Problems: Yes - Gastrointestinal Hx Ulcer: Yes Hx Gastroesophageal Reflux Disease: Yes (history of dysphagia) - Endocrine Hx Renal Disease: Yes Hx End Stage Renal Disease: Yes (HD 2009, Dialyzed yesterday, K 3.6) Hx Liver Disease: Yes (abnormal liver function test, coagulopathy, mass on liver ) - Hematic Hx Anemia: Yes (received 1 U PRBC yesterday, Hg 7.3) - Other Systems Hx Alcohol Use: Yes Hx Substance Use: No Hx Cancer: No (mass on liver) Hx Obesity: No - Additional Comments Anesthesia Medical History Comments: NAC
--- NOTE | 2017-08-25 08:34 | Progress Note ---
Assessment and Plan - Lower GI bleed Nothing by mouth Serial H&H IV Protonix GI. Consulted and following Patient for colonoscopy Last colonoscopy 2-3 years ago showed colonic polyps - Abdominal pain Operative CT scan of abdomen and pelvis CT done 08/18/2017 reviewed showed dilated hypokinetic duct. - Anemia due to acute blood loss To transfuse 1 unit of blood - HIV (human immunodeficiency virus infection) Continue antiretrovirals - ESRD on hemodialysis Continue hemodialysis on MWF Nephrology consulted and following pt - Hypertension Continue antihypertensives - DVT prophylaxis Only SCDs Subjective Date of service: 08/25/17 Principal diagnosis: GI bleeding, anemia due to acute blood loss, HIV, ESRD on HD Interval history: Patient seen and examined. No active bleeding. For colonoscopy today . Objective - Exam Narrative Exam: Constitutional: Well-nourished well-developed. In no distress Head: Normocephalic atraumatic Eyes: Pupils are equal round and reactive to light Nose: No enlarged turbinates, no septal deviation. Mouth: Moist mucous membranes. Neck: Supple no thyromegaly. No bruit. No JVD Heart: Regular rate and rhythm, S1-S2 abnormal. No rubs murmurs or gallop Lungs: Clear to auscultation bilaterally no rales or rhonchi Abdomen: Soft, nontender. Bowel sound are present. Extremities: No edema no cyanosis and no clubbing. Neuro: Alert oriented Oriented x3. No focal sensory or motor deficit. Skin: No rashes no hyperemic spots Psychiatry: Euthymic.Calm. - Constitutional Vitals: Vital Signs - 12hr 08/24/17 08/24/17 08/24/17 20:41 21:00 21:24 Temperature 98.1 F Pulse Rate 104 H 108 H 113 H Respiratory 18 Rate Blood Pressure 177/75 177/75 O2 Sat by Pulse 96 Oximetry 08/25/17 08/25/17 08/25/17 00:18 05:10 08:28 Temperature 99.7 F H 98.5 F 98.9 F Pulse Rate 104 H 114 H 118 H Respiratory 18 20 28 H Rate Blood Pressure 158/74 185/82 190/83 O2 Sat by Pulse 100 99 96 Oximetry 08/25/17 08:32 Temperature 98.9 F Pulse Rate 118 H Respiratory 28 H Rate Blood Pressure 190/83 O2 Sat by Pulse 96 Oximetry - Labs CBC & Chem 7: 08/25/17 05:01 07/12/18 05:01 Labs: Abnormal lab results 08/23/17 08/24/17 08/25/17 Range/Units 23:42 14:47 05:01 RBC 3.04 L (3.65-5.03) M/mm3 Hgb 7.1 L 9.0 L (10.1-14.3) gm/dl Hct 21.8 L 27.0 L (30.3-42.9) % RDW 18.7 H (13.2-15.2) % Plt Count 130 L (140-440) K/mm3 Lymph % (Auto) 11.3 L (13.4-35.0) % Lymph # 0.9 L (1.2-5.4) K/mm3 Seg Neutrophils % 82.3 H (40.0-70.0) % Potassium (3.6-5.0) mmol/L Chloride (98-107) mmol/L Carbon Dioxide (22-30) mmol/L Creatinine (0.7-1.2) mg/dL ALT (7-56) units/L Alkaline Phosphatase (35-129) units/L Total Protein (6.3-8.2) g/dL Albumin (3.9-5) g/dL Crossmatch See Detail 08/25/17 Range/Units 05:01 RBC (3.65-5.03) M/mm3 Hgb (10.1-14.3) gm/dl Hct (30.3-42.9) % RDW (13.2-15.2) % Plt Count (140-440) K/mm3 Lymph % (Auto) (13.4-35.0) % Lymph # (1.2-5.4) K/mm3 Seg Neutrophils % (40.0-70.0) % Potassium 3.3 L (3.6-5.0) mmol/L Chloride 94.8 L (98-107) mmol/L Carbon Dioxide 31 H (22-30) mmol/L Creatinine 3.3 H (0.7-1.2) mg/dL ALT 5 L (7-56) units/L Alkaline Phosphatase 148 H (35-129) units/L Total Protein 6.0 L (6.3-8.2) g/dL Albumin 3.0 L (3.9-5) g/dL Crossmatch
[2017-08-25] MEDS ORDERED: NACL 0.9% 1000 ML 1,000 ML IV SCH (09:00)
--- NOTE | 2017-08-25 09:07 | Progress Note ---
Subjective Principal diagnosis: GI bleeding, anemia due to acute blood loss, HIV, ESRD on HD Interval history: Came to evaluate the patient today in the room she has already gone down Reviewed the vitals labs No emergent indication for renal replacement therapy today Will adjust blood pressure medication and follow check renin and aldosterone level Difficult to control hypertension: check Shine and renin Add labetalol with caution, with clonidine, hold if heart rate is under 55 Discontinue alpha owen Increase minoxidil to 10 mg twice a day For dialysis tomorrow morning Patient does have secondary hypertension Objective - Vital Signs Vital signs: Vital Signs - 12hr 08/24/17 08/25/17 08/25/17 21:24 00:18 05:10 Temperature 99.7 F H 98.5 F Pulse Rate 113 H 104 H 114 H Respiratory 18 20 Rate Blood Pressure 177/75 158/74 185/82 O2 Sat by Pulse 100 99 Oximetry 08/25/17 08/25/17 08:28 08:32 Temperature 98.9 F 98.9 F Pulse Rate 118 H 118 H Respiratory 28 H 28 H Rate Blood Pressure 190/83 190/83 O2 Sat by Pulse 96 96 Oximetry - Lab 08/25/17 05:01 08/25/17 05:01 Most recent lab results Calcium 8.7 mg/dL (8.4-10.2) 08/25/17 05:01 Phosphorus 3.20 mg/dL (2.5-4.5) 08/25/17 05:01 Magnesium 1.70 mg/dL (1.7-2.3) 08/25/17 05:01
[2017-08-25] MEDS ORDERED: NORMODYNE IV ONE (09:28)
[2017-08-25] MEDS ORDERED: XYLOCAINE MPF 2% ONE ×2 (10:30→14:26)
--- NOTE | 2017-08-25 10:31 | Operative Report ---
Operative Report Operative Report: Date of procedure: 08/25/2017 Preprocedure diagnosis: Recurrent hematochezia Post procedure diagnosis: Multiple colon polyps. Extensive diverticulosis of the left colon. Small internal hemorrhoids. Suboptimal prep. Procedure: Colonoscopy to the cecum with multiple snare polypectomies. Endoscopist: Dr. Collins Anesthesia: Monitored anesthesia care per anesthesia department Estimated blood loss: 0 Medications: Monitored anesthesia care. See separate report by anesthesia for details. After careful discussion of the nature and purpose of the procedure as well as details of the technique risks benefits and alternatives the patient gave consent. Please see recent history and physical from the office. The patient was placed in the left lateral decubitus position and medicated per anesthesia. A rectal exam was performed sphincter tone was normal there were no masses palpable. The [employer] 570 scope was passed transanally and advanced under continuous direct vision without difficulty to the cecum. The colon was fair with some areas of thick liquids stool precluding detailed mucosal inspection. The cecum was normal. The ascending colon was normal and on forward and retroflexed views. The transverse colon revealed a sessile 1 cm polyp with inflammatory features. The polyp was removed with snare electrocautery without difficulty. The polyp was retrieved by suction. The descending colon, and sigmoid colon revealed extensive diverticulosis. 3 polyps were found in the descending colon from 8 mm to 1.2 cm in size. All polyps were pedunculated and were removed completely with snare electrocautery. One polyp however was lost due to the poor prep. The rectum revealed small internal hemorrhoids on retroflex view but was otherwise normal. The procedure was well-tolerated overall and the patient was observed in recovery. Conclusions: Extensive diverticulosis, probable bleeding source versus hemorrhoids. 4 colon polyps all benign in appearance, one was not retrieved. Small internal hemorrhoids. Suboptimal prep. Plan: Await pathology. May advance diet and consider for discharge today from the GI standpoint. Patient may follow up in the office on the pending pathology. Repeat colonoscopy should be considered in a year due to the suboptimal prep. Signed electronically: Jose Collins M.D.
[2017-08-25] MEDS: SODIUM CHLORIDE FLUSH SYRINGE 10 ML IV SCH ×2 (11:05→22:35)
[2017-08-25] MEDS: PROTONIX IV SCH (11:05)
[2017-08-25] MEDS: LONITEN PO SCH ×2 (11:06→22:28)
[2017-08-25] MEDS: NORMODYNE PO SCH ×2 (14:41→22:35)
[2017-08-25] MEDS: PROTONIX PO SCH (22:35)
[2017-08-26 05:49] LABS: Basophils # (Auto) 0.1 K/mm3 (0.0-0.1); Basophils % (Auto) 1.3 % (0.0-1.8); Eosinophils # (Auto) 0.1 K/mm3 (0.0-0.4); Eosinophils % (Auto) 1.3 % (0.0-4.3); Hemoglobin 8.7 gm/dl (10.1-14.3); Lymphocytes # (Auto) 1.3 K/mm3 (1.2-5.4); Lymphocytes % (Auto) 14.4 % (13.4-35.0); Mean Corpuscular HGB Conc 33 % (30-34); Mean Corpuscular Hemoglobin 30 pg (28-32); Mean Corpuscular Volume 90 fl (79-97); Monocytes # (Auto) 0.4 K/mm3 (0.0-0.8); Monocytes % (Auto) 4.9 % (0.0-7.3); Platelet Count 131 K/mm3 (140-440); Red Blood Count 2.89 M/mm3 (3.65-5.03); Red Cell Distribution Width 19.2 % (13.2-15.2)
[2017-08-26 06:15] LABS: Albumin 2.8 g/dL (3.9-5)
[2017-08-26] MEDS: DILAUDID IV PRN ×2 (06:44→14:31)
[2017-08-26] MEDS: NORMODYNE PO SCH ×2 (08:24→14:32)
--- NOTE | 2017-08-26 10:06 | Progress Note ---
Assessment and Plan - Lower GI bleed Nothing by mouth Serial H&H IV Protonix GI. Consulted and following Colonoscopy showed multiple polyps and colonic polyps, extensive diverticulosis of the left colon and internal hemorrhoids. No active bleeding identified. Multiple snare polypectomies done Last colonoscopy 2-3 years ago showed colonic polyps - Abdominal pain Operative CT scan of abdomen and pelvis CT done 08/18/2017 reviewed showed dilated hypokinetic duct. - Anemia due to acute blood loss To transfuse 1 unit of blood - HIV (human immunodeficiency virus infection) Continue antiretrovirals - ESRD on hemodialysis Continue hemodialysis on [facility] Nephrology consulted and following pt - Hypertension Continue antihypertensives - DVT prophylaxis Only SCDs - Disposition: Discharged after hemodialysis Subjective Date of service: 08/26/17 Principal diagnosis: GI bleeding, anemia due to acute blood loss, HIV, ESRD on HD Interval history: Patient seen and examined. No active bleeding. Had colonoscopy yesterday with colonic polys identified. No active bleeding. Objective - Exam Narrative Exam: Constitutional: Well-nourished well-developed. In no distress Head: Normocephalic atraumatic Eyes: Pupils are equal round and reactive to light Nose: No enlarged turbinates, no septal deviation. Mouth: Moist mucous membranes. Neck: Supple no thyromegaly. No bruit. No JVD Heart: Regular rate and rhythm, S1-S2 abnormal. No rubs murmurs or gallop Lungs: Clear to auscultation bilaterally no rales or rhonchi Abdomen: Soft, nontender. Bowel sound are present. Extremities: No edema no cyanosis and no clubbing. Neuro: Alert oriented Oriented x3. No focal sensory or motor deficit. Skin: No rashes no hyperemic spots Psychiatry: Euthymic.Calm. - Constitutional Vitals: Vital Signs - 12hr 08/25/17 08/25/17 08/26/17 22:35 23:09 01:00 Temperature 98.4 F Pulse Rate 73 73 Pulse Rate [ 75 Right Radial] Respiratory 18 18 Rate Respiratory Rate [Oral] Blood Pressure 159/65 152/64 O2 Sat by Pulse 96 Oximetry 08/26/17 08/26/17 08/26/17 01:28 05:39 06:44 Temperature Pulse Rate 73 Pulse Rate [ Right Radial] Respiratory 18 Rate Respiratory 18 Rate [Oral] Blood Pressure O2 Sat by Pulse 98 Oximetry 08/26/17 08/26/17 08/26/17 07:14 07:29 08:24 Temperature 98.2 F Pulse Rate 85 85 Pulse Rate [ Right Radial] Respiratory 20 18 Rate Respiratory Rate [Oral] Blood Pressure 173/80 173/80 O2 Sat by Pulse 96 Oximetry 08/26/17 08:32 Temperature Pulse Rate Pulse Rate [ Right Radial] Respiratory 20 Rate Respiratory 20 Rate [Oral] Blood Pressure O2 Sat by Pulse 98 Oximetry - Labs CBC & Chem 7: 08/26/17 04:55 08/26/17 04:55 Labs: Abnormal lab results 08/26/17 08/26/17 Range/Units 04:55 04:55 RBC 2.89 L (3.65-5.03) M/mm3 Hgb 8.7 L (10.1-14.3) gm/dl Hct 26.0 L (30.3-42.9) % RDW 19.2 H (13.2-15.2) % Plt Count 131 L (140-440) K/mm3 Seg Neutrophils % 78.1 H (40.0-70.0) % Potassium 3.5 L (3.6-5.0) mmol/L Chloride 96.3 L (98-107) mmol/L Creatinine 4.8 H (0.7-1.2) mg/dL ALT 5 L (7-56) units/L Alkaline Phosphatase 139 H (35-129) units/L Total Protein 5.7 L (6.3-8.2) g/dL Albumin 2.8 L (3.9-5) g/dL
[2017-08-26] MEDS: LONITEN PO SCH (10:47)
[2017-08-26] MEDS: PROTONIX PO SCH (10:47)
[2017-08-26] MEDS: SODIUM CHLORIDE FLUSH SYRINGE 10 ML IV SCH (10:48)
--- NOTE | 2017-08-26 12:46 | Progress Note ---
Subjective Principal diagnosis: GI bleeding, anemia due to acute blood loss, HIV, ESRD on HD Interval history: Patient was seen today for follow-up on multiple renal related issues No complaints of any chest pain pressure or shortness of breath or any voiding problems Events of this hospitalization noted, blood pressure better Wants dialysis today Interdisciplinary notes were also reviewed Past medical history: Reviewed Family history: Reviewed Social history: Reviewed Vitals: Reviewed HEENT: Oral mucosa dry Neck: Supple no thyromegaly no JVD Chest: Clear to auscultation anteriorly no crackles or wheezes Heart: Regular rate and rhythm S1-S2 heard no S3-S4 Abdomen: Soft nontender dry skin and no organomegaly Extremity: Less than 1+ edema dry skin no petechial rash, fistula very tortuous Musculoskeletal: No joint effusion noted Assessment and plan: End-stage renal disease: Patient is currently on maintenance hemodialysis Tuesday and Tuesday she will receive her hemodialysis treatment today, patient does have a tortuous fistula for which she'll follow up with vascular surgery and was last seen about a month ago Anemia and end-stage renal disease complicated by GI bleed in the setting of HIV , monitor hemoglobin and hematocrit status post GI evaluation Accelerated hypertension increase the dose of minoxidil with some success Patient needs to be dialyzed with lower sodium bath Overall she is doing much better from renal standpoint We'll continue to follow and make recommendations from renal standpoint For any questions feel free to contact me at [phone] Objective - Vital Signs Vital signs: Vital Signs - 12hr 08/26/17 08/26/17 08/26/17 01:00 01:28 05:39 Temperature 98.4 F Pulse Rate 73 73 Pulse Rate [ 75 Right Radial] Respiratory 18 Rate Respiratory 18 Rate [Oral] Blood Pressure 152/64 Blood Pressure [Right] O2 Sat by Pulse 96 98 Oximetry 08/26/17 08/26/17 08/26/17 06:44 07:14 07:29 Temperature 98.2 F Pulse Rate 85 Pulse Rate [ Right Radial] Respiratory 18 20 18 Rate Respiratory Rate [Oral] Blood Pressure 173/80 Blood Pressure [Right] O2 Sat by Pulse 96 Oximetry 08/26/17 08/26/17 08/26/17 08:24 08:32 10:13 Temperature 98.2 F Pulse Rate 85 84 Pulse Rate [ Right Radial] Respiratory 20 18 Rate Respiratory 20 Rate [Oral] Blood Pressure 173/80 Blood Pressure 173/80 [Right] O2 Sat by Pulse 98 97 Oximetry - Lab 08/26/17 04:55 08/26/17 04:55 Most recent lab results Calcium 9.0 mg/dL (8.4-10.2) 08/26/17 04:55 Phosphorus 3.20 mg/dL (2.5-4.5) 08/25/17 05:01 Magnesium 1.70 mg/dL (1.7-2.3) 08/25/17 05:01
--- NOTE | 2017-08-26 18:56 | Discharge Summary ---
Providers - Providers Date of Admission: 08/23/17 18:10 Date of discharge: 08/26/17 Attending physician: CARMEN MOSES 08/23/17 23:05 Consult to Physician [CONS] Routine Comment: Consulting Provider: ARNAV ARNOLD Physician Instructions: Reason For Exam: GI bleed 08/23/17 23:08 Consult to Physician [CONS] Routine Comment: Consulting Provider: DARBY JUAREZ Physician Instructions: Reason For Exam: esrd Primary care physician: GUEST SERVICE REPRESENTATIVE Hospitalization Reason for admission: GI bleeding aned amenia from acute blood loss Condition: Stable Pertinent studies: CBC, CMP Procedures: Colonoscopy Hospital course: 66-year-old black female with history of end-stage disease hypertension and HIV presents with lower GI bleeds since morning. Patient was recently admitted for GI bleed. Patient had a hemoglobin of 5 and received 2 units of blood. Patient was scheduled for colonoscopy but she signed out AGAINST MEDICAL ADVICE because she had attend a . This is 4 days ago. Today the rectal bleeding is recurred because of which patient came back. No syncope or lightheadedness. No exacerbating or relieving factors. On admission hemoglobin was 7.5 hematocrit 23.1. Patient had blood transfusion. Started on serial H&H, IV Protonix, blood transfusion. Colonoscopy was done. Multiple colonic polyp identified with snare polypectomy. Multiple diverticulosis coli identified on the left scrotum. Patient had internal hemorrhoids. No active bleeding was noted. While on admission nephrology consult was obtained and patient was continued on hemodialysis on Mondays raises and Fridays. 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 Mouth: Moist mucous membranes. Neck: Supple no thyromegaly. No bruit. No JVD Heart: Regular rate and rhythm, S1-S2 abnormal. No rubs murmurs or gallop Lungs: Clear to auscultation bilaterally no rales or rhonchi Abdomen: Soft, nontender. Bowel sound are present. Extremities: No edema no cyanosis and no clubbing. Neuro: Alert oriented Oriented x3. No focal sensory or motor deficit. Skin: No rashes no hyperemic spots Psychiatry: Euthymic.Calm. - Constitutional Vitals: Temp Pulse Resp BP Pulse Ox 98.9 F 80 18 183/72 98 08/26/17 15:11 08/26/17 15:11 08/26/17 15:11 08/26/17 15:11 08/26/17 15:11 Plan Activity: advance as tolerated, fall precautions Weight Bearing Status: Weight Bear as Tolerated Diet: renal Follow up with: PRIMARY CARE, [Primary Care Provider] - 3-5 Days Forms: Accompanied Note Prescriptions: cloNIDine [Catapres] 0.3 mg PO TID #90 tablet Labetalol [Normodyne TAB] 200 mg PO TID #90 tablet Minoxidil [Loniten] 10 mg PO BID #60 tablet
[2017-08-26 21:56] VITALS: BP 157/92
== END 2017-08-26 22:00 | disposition home or self-care (01) | DRG 377 ==
LOC: ED 14:17 → 4A 18:10
PROVIDERS: ADMIT Internal Medicine; ATTEND Family Medicine
PROC: 30233N1 Transfusion of Nonautologous Red Blood Cells into Peripheral Vein, Percutaneous Approach (ICD-10-PCS; principal; 2017-08-24)
PROC: 5A1D70Z Performance of Urinary Filtration, Intermittent, Less than 6 Hours Per Day (ICD-10-PCS; 2017-08-24)
PROC: 0DBM8ZZ Excision of Descending Colon, Via Natural or Artificial Opening Endoscopic (ICD-10-PCS; 2017-08-25)
PROC: 0DBL8ZZ Excision of Transverse Colon, Via Natural or Artificial Opening Endoscopic (ICD-10-PCS; 2017-08-25)
PROC: 5A1D70Z Performance of Urinary Filtration, Intermittent, Less than 6 Hours Per Day (ICD-10-PCS; 2017-08-26)
DX: K57.31 Diverticulosis of large intestine without perforation or abscess with bleeding (principal); B20 Human immunodeficiency virus [HIV] disease; N18.6 End stage renal disease; D62 Acute posthemorrhagic anemia; I13.2 Hypertensive heart and chronic kidney disease with heart failure and with stage 5 chronic kidney disease, or end stage renal disease; N25.81 Secondary hyperparathyroidism of renal origin; D69.6 Thrombocytopenia, unspecified; I50.9 Heart failure, unspecified; K63.5 Polyp of colon; K64.8 Other hemorrhoids; K21.9 Gastro-esophageal reflux disease without esophagitis; F17.200 Nicotine dependence, unspecified, uncomplicated; K76.9 Liver disease, unspecified; Z90.49 Acquired absence of other specified parts of digestive tract; Z99.2 Dependence on renal dialysis; Z79.899 Other long term (current) drug therapy; Z88.5 Allergy status to narcotic agent; Z88.6 Allergy status to analgesic agent; Z71.6 Tobacco abuse counseling
CPT/HCPCS: 36415; 36430; 80053; 82088; 83690; 83735; 84100; 85014; 85018; 85025; 85610; 85730; 86850; 86900; 86901; 86920; 88305; 96374; 96375; C9113; J1170; J2405; J2704; J7030; P9016; Q0162

== ENCOUNTER 2017-09-06 10:33 | Inpatient (IN) | payer MEDICARE ==
[2017-09-06] MEDS ORDERED: NACL 0.9% 1000 ML 1,000 ML IV ONE (10:50)
[2017-09-06 11:30] LABS: Basophils # (Auto) 0.1 K/mm3 (0.0-0.1); Basophils % (Auto) 1.2 % (0.0-1.8); Eosinophils # (Auto) 0.2 K/mm3 (0.0-0.4); Eosinophils % (Auto) 1.6 % (0.0-4.3); Hematocrit 20.2 % (30.3-42.9); Hemoglobin 6.4 gm/dl (10.1-14.3); Lymphocytes % (Auto) 10.7 % (13.4-35.0); Mean Corpuscular HGB Conc 32 % (30-34); Mean Corpuscular Hemoglobin 29 pg (28-32); Mean Corpuscular Volume 90 fl (79-97); Monocytes # (Auto) 0.5 K/mm3 (0.0-0.8); Monocytes % (Auto) 5.5 % (0.0-7.3); Platelet Count 147 K/mm3 (140-440); Red Blood Count 2.24 M/mm3 (3.65-5.03)
[2017-09-06 11:39] LABS: INR 1.67 (0.87-1.13)
[2017-09-06 11:40] LABS: Partial Thromboplastin Time 29.5 Sec. (24.2-36.6)
[2017-09-06 11:52] LABS: Albumin 2.4 g/dL (3.9-5); Calcium 7.7 mg/dL (8.4-10.2)
[2017-09-06] MEDS ORDERED: NACL 0.9% 500 ML 500 ML IV ONE ×2 (11:54→12:19)
--- NOTE | 2017-09-06 12:05 | Emergency Department Report ---
HPI - General Chief Complaint: GI Bleed Time Seen by Provider: 09/06/17 11:37 - HPI HPI: Room 10 The patient is a 66-year-old female presenting with a chief complaint of rectal bleeding. The patient is status post polypectomy after colonoscopy that revealed multiple colonic polyps and extensive diverticulosis of the left colon 08/25/[address] Collins. The patient states she began having light rectal bleeding 2 days ago and yesterday however this morning the patient states blood was just "pouring" out of her visit someone had "turned on a faucet." The patient complains of lower abdominal pain for the past 2 days as well as some rectal burning. The patient states she began feeling weak and dizzy and this prompted her to come to the ED. Patient states she feels more lightheaded when sitting up. Patient denies any history of fever. Patient states she was last dialyzed yesterday Location: [See above] Duration: [See above] Quality: Pain Severity: Moderate Modifying factors: [see above] Context: [see above] Mode of transportation: [not driving] ED Past Medical Hx - Past Medical History Previous Medical History?: Yes Hx Hypertension: Yes Hx Congestive Heart Failure: Yes Hx GERD: Yes Hx Liver Disease: Yes (abnormal liver function test, coagulopathy, mass on liver ) Hx Renal Disease: Yes (M, W, F) Hx HIV: Yes - Surgical History Past Surgical History?: Yes Additional Surgical History: PD catheter -removed. FISTULA LEFT ARM - Family History Family history: no significant - Social History Smoking Status: Former Smoker (none 50 years) Substance Use Type: None (denies illicit drug use) - Medications Home Medications: Home Medications Medication Instructions Recorded Confirmed Last Taken Type Efavirenz [Sustiva] 600 mg PO DAILY 03/18/16 08/23/17 06/23/16 History Minoxidil [Loniten] 10 mg PO QDAY 03/18/16 08/23/17 06/23/16 History Terazosin [Hytrin] 10 mg PO BID 03/18/16 08/23/17 06/23/16 History Tenofovir [Viread] 300 mg PO QWEEK 08/30/16 08/23/17 Unknown History ALBUTEROL Inhaler [ProAir HFA 2 puff IH QID PRN #1 inhalation 07/27/17 08/23/17 Unknown Rx Inhaler] Fluticasone [Flonase] 1 spray NS QDAY #1 bottle 07/27/17 08/23/17 Unknown Rx B Complex 11/Folic/C/Biot/Zinc 1 each PO QDAY 08/23/17 08/23/17 Unknown History [Dialyvite with Zinc Tablet] lamiVUDine [Epivir] 150 mg PO QPM 08/23/17 08/23/17 Unknown History ALBUTEROL NEB's [Proventil 0.083% 2.5 mg IH Q4HRT PRN nebu 08/26/17 Unknown Rx NEBS] Labetalol [Normodyne TAB] 200 mg PO TID #90 tablet 08/26/17 Unknown Rx Minoxidil [Loniten] 10 mg PO BID #60 tablet 08/26/17 Unknown Rx cloNIDine [Catapres] 0.3 mg PO TID #90 tablet 08/26/17 Unknown Rx cloNIDine-TTS PATCH [Catapres-Tts 0.3 mg TD Tu patch 08/26/17 Unknown Rx Patch] ED Review of Systems ROS: Stated complaint: RETURN BLEEDING Other details as noted in HPI Constitutional: denies: fever Eyes: denies: eye pain ENT: denies: throat pain Respiratory: no symptoms reported Cardiovascular: denies: chest pain Endocrine: no symptoms reported Gastrointestinal: abdominal pain, hematochezia. denies: nausea Musculoskeletal: denies: back pain Neurological: other (lightheadedness). denies: headache Physical Exam - Physical Exam Vital Signs: Vital Signs 09/06/17 10:43 Temperature 98.6 F Pulse Rate 71 Respiratory 20 Rate Blood Pressure 124/49 O2 Sat by Pulse 100 Oximetry Physical Exam: GENERAL: The patient is well-developed well-nourished female sitting on stretcher not appearing to be in acute distress. [] HEENT: Normocephalic. Atraumatic. Extraocular motions are intact. Patient has moist mucous membranes. NECK: Supple. Trachea midline CHEST/LUNGS: Clear to auscultation. There is no respiratory distress noted. HEART/CARDIOVASCULAR: Regular. There is no tachycardia. There is no gallop rub or murmur. ABDOMEN: Abdomen is soft, with discomfort to palpation in the lower abdomen. Patient has normal bowel sounds. There is no abdominal distention. SKIN: There is no rash. There is no edema. There is no diaphoresis. NEURO: The patient is awake, alert, and oriented. The patient is cooperative. The patient has normal speech MUSCULOSKELETAL:There is no evidence of acute injury. ED Course Vital Signs 09/06/17 10:43 Temperature 98.6 F Pulse Rate 71 Respiratory 20 Rate Blood Pressure 124/49 O2 Sat by Pulse 100 Oximetry - Consultations Consultation #1: 09/06/17 12:13 GI paged 09/06/17 12:[address] Helm ED Medical Decision Making - Lab Data Result diagrams: 09/06/17 11:09 09/06/17 11:09 - EKG Data -: EKG Interpreted by Me EKG shows normal: sinus rhythm Rate: normal - EKG Data When compared to previous EKG there are: no significant change Interpretation: unchanged when compared t (08/30/2016) - Differential Diagnosis GI bleed Critical care attestation.: If time is entered above; I have spent that time in minutes in the direct care of this critically ill patient, excluding procedure time. ED Disposition Clinical Impression: GI bleed, Symptomatic anemia, ESRD (end stage renal disease) Disposition: DC-09 OP ADMIT IP TO THIS HOSP Is pt being admited?: Yes Does the pt Need Aspirin: No Condition: Fair Referrals: PRIMARY CARE, [Primary Care Provider] - 3-5 Days Forms: Accompanied Note Time of Disposition: 12:14 (Hospitalist notified (Dr Spence))
[2017-09-06] MEDS ORDERED: SUBLIMAZE IV ONE (12:07)
[2017-09-06] MEDS ORDERED: ZOFRAN IV ONE (12:07)
--- NOTE | 2017-09-06 12:15 | History and Physical Report ---
History of Present Illness Chief complaint: Im bleeding History of present illness: 66 YO Female with HTN, Diastolic CHF, GERD, ESRD on HD (M,W,F), HIV Disease, Diverticulosis presents to ED for evaluation. Pt states that she has experienced rectal bleeding over the past 2 days, with an episode of large volume rectal bleeding today. The patient states blood was just "pouring" out of her like someone had "turned on a faucet." The patient complains of lower abdominal pain for the past 2 days as well as some rectal burning. The patient states she began feeling weak and dizzy and this prompted her to come to the ED. Patient states she feels more lightheaded when sitting up. Patient denies fever, chills, CP, Palpitations, NVD, Trauma, unintentional weight loss, night sweats, or recent ill contacts. Patient states she was last dialyzed yesterday. Nephrology consulted in ED. GI consulted in ED. Past History Past Medical History: ESRD, GERD, heart failure, HIV/AIDS, hypertension Past Surgical History: appendectomy, Other (AV Fistula) Social history: , lives with family. denies: smoking, alcohol abuse, prescription drug abuse Family history: hypertension Medications and Allergies Allergies Allergy/AdvReac Type Severity Reaction Status Date / Time codeine Allergy HALLUCINATE Verified 08/18/17 17:25 morphine Allergy hallucinati Verified 08/24/17 00:04 on hydralazine AdvReac Vomiting Verified 08/18/17 17:25 Home Medications Medication Instructions Recorded Confirmed Last Taken Type Efavirenz [Sustiva] 600 mg PO DAILY 03/18/16 09/06/17 06/23/16 History Terazosin [Hytrin] 10 mg PO BID 03/18/16 09/06/17 09/05/17 History Tenofovir [Viread] 300 mg PO QWEEK 08/30/16 09/06/17 09/01/17 History Fluticasone [Flonase] 1 spray NS QDAY #1 bottle 07/27/17 09/06/17 Unknown Rx B Complex 11/Folic/C/Biot/Zinc 1 each PO QDAY 08/23/17 09/06/17 Unknown History [Dialyvite with Zinc Tablet] lamiVUDine [Epivir] 150 mg PO QPM 08/23/17 09/06/17 09/05/17 History Minoxidil [Loniten] 10 mg PO BID #60 tablet 08/26/17 09/06/17 09/05/17 Rx Calcium Acetate [Phoslo] 1,334 mg PO TIDWM 09/06/17 09/06/17 Unknown History cloNIDine [Catapres] 0.2 mg PO QID 09/06/17 09/06/17 09/05/17 History Review of Systems Constitutional: no weight loss, no weight gain, no fever, no chills Ears, nose, mouth and throat: no ear pain, no ear discharge, no tinnitis, no decreased hearing, no nose pain Breasts: no change in shape, no swelling, no mass Cardiovascular: no chest pain, no orthopnea, no palpitations, no rapid/ irregular heart beat, no edema Respiratory: no cough, no cough with sputum, no excessive sputum, no hemoptysis Gastrointestinal: BRBPR, no constipation, no change in bowel habits, no hematemesis, no coffee ground emesis, no early satiety Genitourinary Female: no pelvic pain, no flank pain, no menorrhagia, no dysuria , no urinary frequency, no urgency Rectal: no pain, no incontinence, no bleeding Musculoskeletal: no neck pain, no shooting arm pain, no arm numbness/tingling, no low back pain, no shooting leg pain, no leg numbness/tingling Integumentary: no rash, no pruritis, no redness, no sores, no wounds Neurological: no paralysis, no weakness, no parathesias, no numbness, no tingling, no seizures, no syncope, no tremors Psychiatric: no anxiety, no memory loss, no change in sleep habits, no sleep disturbances, no insomnia, no hypersomnia, no change in appetite, no change in libido Endocrine: no cold intolerance, no heat intolerance, no polyphagia, no excessive thirst, no polydipsia, no polyuria, no nocturia Hematologic/Lymphatic: no easy bruising, no easy bleeding, no lymphadenopathy, no lymphedema Allergic/Immunologic: no urticaria, no allergic rhinitis, no wheezing, no persistent infections, no anaphylaxis Exam - Constitutional Vitals: Temp Pulse Resp BP Pulse Ox 98.6 F 71 20 124/49 100 09/06/17 10:43 09/06/17 10:43 09/06/17 10:43 09/06/17 10:43 09/06/17 10:43 General appearance: Present: no acute distress, well-nourished - EENT Eyes: Present: PERRL ENT: hearing intact, clear oral mucosa - Neck Neck: Present: supple, normal ROM - Respiratory Respiratory effort: normal Respiratory: bilateral: CTA - Cardiovascular Heart Sounds: Present: S1 & S2. Absent: rub, click - Extremities Extremities: pulses symmetrical, No edema Peripheral Pulses: within normal limits - Abdominal General gastrointestinal: Present: soft, non-tender, non-distended, normal bowel sounds Female genitourinary: Present: normal - Integumentary Integumentary: Present: clear, warm, dry - Musculoskeletal Musculoskeletal: gait normal, strength equal bilaterally - Psychiatric Psychiatric: appropriate mood/affect, intact judgment & insight - Neurologic Neurologic: CNII-XII intact, moves all extremities Results - Labs CBC & Chem 7: 09/06/17 11:09 09/06/17 11:09 Labs: Abnormal lab results 09/06/17 09/06/17 09/06/17 Range/Units 11:09 11:09 11:09 RBC 2.24 L (3.65-5.03) M/mm3 Hgb 6.4 L (10.1-14.3) gm/dl Hct 20.2 L (30.3-42.9) % RDW 18.0 H (13.2-15.2) % Lymph % (Auto) 10.7 L (13.4-35.0) % Lymph # 1.0 L (1.2-5.4) K/mm3 Seg Neutrophils % 81.0 H (40.0-70.0) % PT 20.7 H (12.2-14.9) Sec. INR 1.67 H (0.87-1.13) Chloride 93.7 L (98-107) mmol/L BUN 22 H (7-17) mg/dL Creatinine 4.1 H (0.7-1.2) mg/dL Glucose 102 H (65-100) mg/dL Calcium 7.7 L (8.4-10.2) mg/dL Total Protein 5.1 L (6.3-8.2) g/dL Albumin 2.4 L (3.9-5) g/dL Assessment and Plan - Patient Problems (1) GI bleed Current Visit: Yes Status: Acute Qualifiers: GI bleed type/associated pathology: diverticulosis Qualified Code(s): K57.91 - Diverticulosis of intestine, part unspecified, without perforation or abscess with bleeding Plan to address problem: PRBC transfusion, serial CBC, GI consulted in ED, PPI therapy, Tagged RBC scan (2) ESRD (end stage renal disease) Current Visit: Yes Status: Chronic Plan to address problem: Nephrology consulted in ED, Dialysis as per renal team (3) HIV (human immunodeficiency virus infection) Current Visit: No Status: Chronic Plan to address problem: continue antiretroviral therapy, supportive care. outpatient ID F/U care. (4) HTN (hypertension) Current Visit: No Status: Chronic Qualifiers: Hypertension type: essential hypertension Qualified Code(s): I10 - Essential (primary) hypertension Plan to address problem: Monitor bp q shift, resume prehospital therapy (5) CHF (congestive heart failure) Current Visit: Yes Status: Acute Qualifiers: Heart failure type: systolic Heart failure chronicity: acute on chronic Qualified Code(s): I50.23 - Acute on chronic systolic (congestive) heart failure Plan to address problem: Strict I/O, monitor uop q shift, chest x ray, supplemental oxygen, nebulizer therapy, supportive care. (6) DVT prophylaxis Current Visit: No Status: Acute Plan to address problem: SCD to BLE
[2017-09-06] MEDS ORDERED: PROVENTIL IH PRN ×2 (12:20→12:47)
[2017-09-06] MEDS ORDERED: DILAUDID IV ONE (12:31)
[2017-09-06] MEDS ORDERED: TYLENOL PO PRN (12:47)
[2017-09-06] MEDS ORDERED: ZOFRAN IV PRN (12:47)
[2017-09-06] MEDS ORDERED: SODIUM CHLORIDE FLUSH SYRINGE 10 ML IV PRN (12:47)
[2017-09-06] MEDS ORDERED: CATAPRES-TTS PATCH TD SCH (13:00)
--- NOTE | 2017-09-06 14:07 | Consultation ---
History of Present Illness - Reason for Consult Consult date: 09/06/17 end stage renal disease Requesting physician: CHRISTINE RAMIREZ - History of Present Illness 66 YO Female with HTN, CHF, GERD, ESRD on HD (M,W,F), HIV Disease, Diverticulosis presents to ED for evaluation. Pt states that she has experienced rectal bleeding over the past 2 days, with an episode of large volume rectal bleeding today. The patient states blood was just "pouring" out of her like someone had "turned on a faucet." The patient complains of lower abdominal pain for the past 2 days as well as some rectal burning. The patient states she began feeling weak and dizzy and this prompted her to come to the ED. Patient states she feels more lightheaded when sitting up. Patient denies any history of fever. Patient states she was last dialyzed yesterday - Past Medical History Previous Medical History?: Yes Hx Hypertension: Yes Hx Congestive Heart Failure: Yes Hx GERD: Yes Hx Liver Disease: Yes (abnormal liver function test, coagulopathy, mass on liver ) Hx Renal Disease: Yes (M, W, F) Hx HIV: Yes - Surgical History Past Surgical History?: Yes Additional Surgical History: PD catheter -removed. FISTULA LEFT ARM - Family History Family history: no significant - Social History Smoking Status: Former Smoker (none 50 years) Substance Use Type: None (denies illicit drug use) Medications and Allergies Allergies Allergy/AdvReac Type Severity Reaction Status Date / Time codeine Allergy HALLUCINATE Verified 08/18/17 17:25 morphine Allergy hallucinati Verified 08/24/17 00:04 on hydralazine AdvReac Vomiting Verified 08/18/17 17:25 Home Medications Medication Instructions Recorded Confirmed Last Taken Type Efavirenz [Sustiva] 600 mg PO DAILY 03/18/16 09/06/17 06/23/16 History Terazosin [Hytrin] 10 mg PO BID 03/18/16 09/06/17 09/05/17 History Tenofovir [Viread] 300 mg PO QWEEK 08/30/16 09/06/17 09/01/17 History Fluticasone [Flonase] 1 spray NS QDAY #1 bottle 07/27/17 09/06/17 Unknown Rx B Complex 11/Folic/C/Biot/Zinc 1 each PO QDAY 08/23/17 09/06/17 Unknown History [Dialyvite with Zinc Tablet] lamiVUDine [Epivir] 150 mg PO QPM 08/23/17 09/06/17 09/05/17 History Minoxidil [Loniten] 10 mg PO BID #60 tablet 08/26/17 09/06/17 09/05/17 Rx Calcium Acetate [Phoslo] 1,334 mg PO TIDWM 09/06/17 09/06/17 Unknown History cloNIDine [Catapres] 0.2 mg PO QID 09/06/17 09/06/17 09/05/17 History Active Meds: Active Medications Acetaminophen (Tylenol) 650 mg PO Q4H PRN PRN Reason: Pain MILD(1-3)/Fever >100.5/SAEED Albuterol (Proventil) 2.5 mg IH Q4HRT PRN PRN Reason: Shortness Of Breath Clonidine HCl (Catapres) 0.3 mg PO TID CARISSA Clonidine HCl (Catapres-Tts Patch) 0.3 mg TD Tu [facility] Efavirenz (Sustiva) 600 mg PO DAILY [facility] Fluticasone Propionate (Flonase) 50 mcg NS QDAY CARISSA Lamivudine (Epivir) 150 mg PO QPM [facility] Minoxidil (Loniten) 10 mg PO BID CARISSA Multivit/Ca Carb/B Cmplx/FA/Prenat (Renal Caps) 1 cap PO QDAY CARISSA Ondansetron HCl (Zofran) 4 mg IV Q8H PRN PRN Reason: Nausea And Vomiting Pantoprazole Sodium (Protonix) 40 mg IV BID CARISSA Prazosin HCl (Minipress) 5 mg PO Q12HR CARISSA Sodium Chloride (Sodium Chloride Flush Syringe 10 Ml) 10 ml IV BID CARISSA Sodium Chloride (Sodium Chloride Flush Syringe 10 Ml) 10 ml IV PRN PRN PRN Reason: LINE FLUSH Tenofovir Disoproxil Fumarate (Viread) 300 mg PO Th [facility] Review of Systems Constitutional: fatigue, weakness, malaise Gastrointestinal: nausea, BRBPR Exam - Vital Signs Vital signs: Vital Signs Temp Pulse Resp BP Pulse Ox 98.6 F 71 20 124/49 100 09/06/17 10:43 09/06/17 10:43 09/06/17 10:43 09/06/17 10:43 09/06/17 10:43 - Physical Exam Narrative exam: General appearance: well-developed, well-nourished, appears stated age EENT: PERRL, mucous membranes moist Neck: Present: neck supple, trachea midline. Absent: JVD/HJR, Masses Respiratory: Clear to Ascultation Heart: regular, normal heart rate Gastrointestinal: Present: normal, normoactive bowel sounds Integumentary: no rash, other (1+ edema. AV fistula in her left upper arm. Good bruit and thrill) Results - Lab Results 09/06/17 11:09 09/06/17 11:09 Most recent lab results Calcium 7.7 mg/dL (8.4-10.2) L 09/06/17 11:09 Assessment and Plan Impression * End-stage renal disease * Symptomatic anemia of abl poa * gi bleeding * Hypertension * HIV disease Recommendations * prn packed RBC transfusion--rec 2 units today * Continue dialysis on MWF schedule as outpatient * No IV, BP or of any puncture in access arm * no heparin with hd, epogen with hd * Further plansas per GI services * Hold PO4 binders for now * adjust diet and meds for ESRD state
[2017-09-06] MEDS ORDERED: NACL 0.9% 100 ML IV PRN (14:08)
[2017-09-06] MEDS ORDERED: FLUSH HEPARIN IV ONE (14:35)
[2017-09-06] MEDS ORDERED: CATAPRES ONE (16:18)
[2017-09-06] MEDS: CATAPRES PO SCH (16:20)
--- NOTE | 2017-09-06 16:36 | Nuclear Medicine Report ---
NUCLEAR MEDICINE GASTROINTESTINAL BLEEDING SCAN: 09/06/17 CLINICAL: GI bleed. TECHNIQUE: 20 mCi technetium 99 UltraTag was injected intravenously. Serial images were obtained up to one hour. FINDINGS: Normal blood pool activity.Normal background activity and normal activity in the liver, spleen and gastric mucosa. No suspicious activity. IMPRESSION: Negative study.No evidence of active GI bleed.
[2017-09-06] MEDS ORDERED: LAMIVUDINE 150 MG PO SCH (18:00)
[2017-09-06] MEDS ORDERED: GOLYTELY PO ONE (20:00)
[2017-09-06] MEDS ORDERED: ULTRAM ONE (21:37)
[2017-09-06] MEDS ORDERED: NON-FORMULARY (Terazosin 10 MG) PO SCH (22:00)
[2017-09-07] MEDS ORDERED: CATAPRES ONE (00:22)
[2017-09-07] MEDS ORDERED: PROTONIX IV ONE (00:23)
[2017-09-07] MEDS: CATAPRES PO SCH ×4 (00:57→22:33)
[2017-09-07] MEDS: SODIUM CHLORIDE FLUSH SYRINGE 10 ML IV SCH ×3 (00:58→22:27)
[2017-09-07] MEDS: LONITEN PO SCH ×3 (00:58→22:26)
[2017-09-07] MEDS: MINIPRESS PO SCH ×3 (00:58→22:26)
[2017-09-07] MEDS: PROTONIX IV SCH ×3 (00:58→22:26)
--- NOTE | 2017-09-07 01:30 | Consultation ---
Referring Physician: HOLA RDZ MD INDICATION: GI bleed. HISTORY OF PRESENT ILLNESS: The patient is a 66-year-old female with history of diabetes, hypertension, CHF, end-stage renal disease, on dialysis as well as HIV, diverticulosis. The patient recently status post colonoscopy 2 weeks ago where she had polyps removed. The patient reports bright red and a large amount of bloody stools over the last 2 days. She reports no nausea, vomiting. She reports mild lower abdominal cramping. She denies any other specific GI complaints. The patient subsequently came to Emergency Room, was seen and evaluated and admitted. PAST MEDICAL HISTORY: 1. End-stage renal disease, on dialysis. 2. GERD. 3. Heart failure. 4. HIV. 5. Hypertension. PAST SURGICAL HISTORY: Status post appendectomy, status post AV fistula. MEDICATIONS: See chart. Full chart was reviewed and updated on review. ALLERGIES: CODEINE, MORPHINE, AND HYDRALAZINE. SOCIAL HISTORY: Denies alcohol or tobacco. FAMILY HISTORY: Negative for colon cancer. REVIEW OF SYSTEMS: GENERAL: Reports mild weakness. HEENT: No visual complaints or tinnitus. PULMONARY: No shortness of breath. No cough. No chest pain. GASTROINTESTINAL: Reports lower GI bleed. All points of 13-point review of systems otherwise negative. PHYSICAL EXAMINATION: VITAL SIGNS: Temperature of 98.7, pulse 77, respiration 18, blood pressure 152/56. GENERAL: Fairly nourished female in no acute distress. HEENT: Pupils equal, round and reactive. PULMONARY: Clear. CARDIOVASCULAR: Regular rhythm. Normal S1, S2. ABDOMEN: Positive bowel sounds, soft. SKIN: No rashes. LABORATORY DATA: Labs pertinent for white count 9.5, hemoglobin and hematocrit 6.1 and 20.2, platelet count of 147. Chem-7 within normal limits except for BUN and creatinine of 22 and 4.1. LFTs within normal limits. ASSESSMENT: A 66-year-old female with a history of diverticular bleed in past, multiple medical problems, recently had a colonoscopy with polyps removed, now presents of signs of lower GI bleed. Possible diverticular bleed versus post-polypectomy versus other. PLAN: 1. Clear liquid diet, n.p.o. after midnight. 2. Follow hematocrit and transfuse as needed. 3. Plan colonoscopy in a.m. JOB# [id number] RADHA/JUSTIN MCCABE
[2017-09-07 06:00] LABS: Basophils # (Auto) 0.1 K/mm3 (0.0-0.1); Basophils % (Auto) 1.2 % (0.0-1.8); Eosinophils % (Auto) 0.6 % (0.0-4.3); Hematocrit 29.9 % (30.3-42.9); Hemoglobin 9.7 gm/dl (10.1-14.3); Lymphocytes # (Auto) 0.7 K/mm3 (1.2-5.4); Lymphocytes % (Auto) 7.9 % (13.4-35.0); Mean Corpuscular HGB Conc 33 % (30-34); Mean Corpuscular Hemoglobin 29 pg (28-32); Mean Corpuscular Volume 91 fl (79-97); Monocytes # (Auto) 0.4 K/mm3 (0.0-0.8); Monocytes % (Auto) 4.8 % (0.0-7.3); Platelet Count 123 K/mm3 (140-440); Red Cell Distribution Width 16.3 % (13.2-15.2)
--- NOTE | 2017-09-07 07:55 | Progress Note ---
Assessment and Plan Assessment and plan: 66 YO Female with HTN, Diastolic CHF, GERD, ESRD on HD (M,W,F), HIV Disease, Diverticulosis presents to ED for evaluation. Pt states that she has experienced rectal bleeding over the past 2 days, with an episode of large volume rectal bleeding today. The patient states blood was just "pouring" out of her like someone had "turned on a faucet." The patient complains of lower abdominal pain for the past 2 days as well as some rectal burning. The patient states she began feeling weak and dizzy and this prompted her to come to the ED. Patient states she feels more lightheaded when sitting up. Patient denies fever, chills, CP, Palpitations, NVD, Trauma, unintentional weight loss, night sweats, or recent ill contacts. Patient states she was last dialyzed yesterday. Nephrology consulted in ED. GI consulted in ED. Patient was recently in the hospital and underwent colonoscopy with snare polypectomy, there was also noted multiple diverticulosis coli GI bleed-Rectal. ESRD Severe Symptomatic Anemia secondary to GI bleed HIV HTN Diverticulosis Coli Secondary coagulopathy-?etiology CHF-STABLE Plan supportive care Pain control with hydromorphone GI eval today S/P 2 unit PRBC with good response Avoid antiplatelets Continue anti-retroviral Outpatient hematology eval for further evaluation Tagged RBC scan was negative Continue dialysis per nephrology MWF DVT/GI PROPHY Plan discussed with the patient in detail patient verbalized understanding. History Interval history: Patient seen and examined to a dialysis patient reports she still in chronic pain and only diludid works for her. She denies any other complaints at this time reports some improvement of her generalized weakness. Hospitalist Physical - Physical exam Narrative exam: VITAL SIGNS: Reviewed. GENERAL: The patient appeared chronically ill. Vital signs as documented. HEAD: No signs of head trauma. Temporal wasting EYES: Pupils are equal. Extraocular motions intact. EARS: Hearing grossly intact. MOUTH: Oropharynx is normal. NECK: No adenopathy, no JVD. CHEST: Chest with clear breath sounds bilaterally. No wheezes, rales, or rhonchi. CARDIAC: Regular rate and rhythm. S1 and S2, without murmurs, gallops, or rubs. VASCULAR: Fistula on the left arm with palpable chills No Edema. Peripheral pulses normal and equal in all extremities. ABDOMEN: Soft, without detectable tenderness. No sign of distention. No rebound or guarding, and no masses palpated. Bowel Sounds normal. MUSCULOSKELETAL: Good range of motion of all major joints. Extremities without clubbing, cyanosis or edema. NEUROLOGIC EXAM: Alert and oriented x 3. No focal sensory or strength deficits. Speech normal. Follows commands. PSYCHIATRIC: Mood normal. SKIN: No rash or lesions. - Constitutional Vitals: Temp Pulse Resp BP Pulse Ox 98.7 F 86 18 139/60 96 09/07/17 02:29 09/07/17 02:29 09/07/17 02:29 09/07/17 02:09/07/17 02:29 General appearance: Present: no acute distress, well-nourished Results - Labs CBC & Chem 7: 09/07/17 05:43 09/06/17 11:09 Labs: Laboratory Last Values WBC 8.4 K/mm3 (4.5-11.0) 09/07/17 05:43 RBC 3.30 M/mm3 (3.65-5.03) L 09/07/17 05:43 Hgb 9.7 gm/dl (10.1-14.3) L D 09/07/17 05:43 Hct 29.9 % (30.3-42.9) L D 09/07/17 05:43 MCV 91 fl (79-97) 09/07/17 05:43 MCH 29 pg (28-32) 09/07/17 05:43 MCHC 33 % (30-34) 09/07/17 05:43 RDW 16.3 % (13.2-15.2) H 09/07/17 05:43 Plt Count 123 K/mm3 (140-440) L 09/07/17 05:43 Lymph % (Auto) 7.9 % (13.4-35.0) L 09/07/17 05:43 [place] % (Auto) 4.8 % (0.0-7.3) 09/07/17 05:43 Eos % (Auto) 0.6 % (0.0-4.3) 09/07/17 05:43 Baso % (Auto) 1.2 % (0.0-1.8) 09/07/17 05:43 Lymph # 0.7 K/mm3 (1.2-5.4) L 09/07/17 05:43 [place] # 0.4 K/mm3 (0.0-0.8) 09/07/17 05:43 Eos # 0.0 K/mm3 (0.0-0.4) 09/07/17 05:43 Baso # 0.1 K/mm3 (0.0-0.1) 09/07/17 05:43 Seg Neutrophils % 85.5 % (40.0-70.0) H 09/07/17 05:43 Seg Neutrophils # 7.2 K/mm3 (1.8-7.7) 09/07/17 05:43 PT 20.7 Sec. (12.2-14.9) H 09/06/17 11:09 INR 1.67 (0.87-1.13) H 09/06/17 11:09 APTT 29.5 Sec. (24.2-36.6) 09/06/17 11:09 Sodium 137 mmol/L (137-145) 09/06/17 11:09 Potassium 4.1 mmol/L (3.6-5.0) 09/06/17 11:09 Chloride 93.7 mmol/L (98-107) L 09/06/17 11:09 Carbon Dioxide 29 mmol/L (22-30) 09/06/17 11:09 Anion Gap 18 mmol/L 09/06/17 11:09 BUN 22 mg/dL (7-17) H 09/06/17 11:09 Creatinine 4.1 mg/dL (0.7-1.2) H 09/06/17 11:09 Estimated GFR 13 ml/min 09/06/17 11:09 BUN/Creatinine Ratio 5 % 09/06/17 11:09 Glucose 102 mg/dL (65-100) H 09/06/17 11:09 Calcium 7.7 mg/dL (8.4-10.2) L 09/06/17 11:09 Total Bilirubin 0.30 mg/dL (0.1-1.2) 09/06/17 11:09 AST 18 units/L (5-40) 09/06/17 11:09 ALT 8 units/L (7-56) 09/06/17 11:09 Alkaline Phosphatase 121 units/L (35-129) 09/06/17 11:09 Total Protein 5.1 g/dL (6.3-8.2) L 09/06/17 11:09 Albumin 2.4 g/dL (3.9-5) L 09/06/17 11:09 Albumin/Globulin Ratio 0.9 % 09/06/17 11:09 Lipase 14 units/L (13-60) 09/06/17 11:09 Blood Type B POSITIVE 09/06/17 11:09 Antibody Screen Negative 09/06/17 11:09 Crossmatch See Detail 09/06/17 11:09
--- NOTE | 2017-09-07 09:39 | Progress Note ---
Assessment and Plan Impression * End-stage renal disease * Symptomatic anemia of abl poa * gi bleeding * Hypertension * HIV disease Recommendations * prn packed RBC transfusion--s/p 2 units prbcs * Continue dialysis on MWF schedule * No IV, BP or of any puncture in access arm * no heparin with hd, epogen with hd * Further plansas per GI services * Hold PO4 binders for now * adjust diet and meds for ESRD state Subjective Date of service: 09/07/17 Principal diagnosis: esrd Interval history: resting in bed today Objective - Exam Narrative Exam: General appearance: well-developed, well-nourished, appears stated age EENT: PERRL, mucous membranes moist Neck: Present: neck supple, trachea midline. Absent: JVD/HJR, Masses Respiratory: Clear to Ascultation Heart: regular, normal heart rate Gastrointestinal: Present: normal, normoactive bowel sounds Integumentary: no rash, other (1+ edema. AV fistula in her left upper arm. Good bruit and thrill) - Vital Signs Vital signs: Vital Signs - 12hr 09/06/17 09/06/17 09/06/17 21:45 22:00 22:15 Temperature Pulse Rate Respiratory 15 19 15 Rate Blood Pressure 187/59 179/74 166/72 O2 Sat by Pulse Oximetry 09/06/17 09/06/17 09/06/17 22:20 22:30 22:45 Temperature 98.9 F Pulse Rate 86 Respiratory 19 16 14 Rate Blood Pressure 181/75 187/76 181/75 O2 Sat by Pulse 100 Oximetry 09/06/17 09/06/17 09/06/17 22:50 23:00 23:05 Temperature 98.9 F 99.0 F Pulse Rate 67 68 Respiratory 18 16 18 Rate Blood Pressure 176/74 176/76 186/76 O2 Sat by Pulse 99 97 Oximetry 09/06/17 09/06/17 09/06/17 23:15 23:30 23:35 Temperature 98.9 F Pulse Rate 70 Respiratory 17 16 18 Rate Blood Pressure 192/75 190/73 175/74 O2 Sat by Pulse 100 Oximetry 09/06/17 09/07/17 09/07/17 23:45 00:00 00:16 Temperature Pulse Rate Respiratory 19 16 17 Rate Blood Pressure 188/72 187/75 201/76 O2 Sat by Pulse 98 Oximetry 09/07/17 09/07/17 09/07/17 00:30 01:20 01:56 Temperature 99.0 F Pulse Rate 70 Respiratory 12 Rate Blood Pressure 201/76 O2 Sat by Pulse Oximetry 09/07/17 09/07/17 09/07/17 02:29 07:59 08:57 Temperature 98.7 F 99.2 F Pulse Rate 86 104 H Respiratory 18 24 Rate Blood Pressure 139/60 143/68 O2 Sat by Pulse 96 97 97 Oximetry - Lab 09/07/17 05:43 09/06/17 11:09 Most recent lab results Calcium 7.7 mg/dL (8.4-10.2) L 09/06/17 11:09
[2017-09-07] MEDS ORDERED: NON-FORMULARY (B Complex 11/Folic/C/Biot/Zinc [Dialyvite With Zinc Tablet] 1 EACH) PO SCH (10:00)
[2017-09-07] MEDS ORDERED: EFAVIRENZ 600 MG PO SCH (10:00)
[2017-09-07] MEDS ORDERED: NACL 0.9 (PRIMING MACHINE ONLY DIALYSIS) MC ONE (10:51)
[2017-09-07] MEDS: Renal Caps PO SCH (11:25)
[2017-09-07] MEDS: FLONASE NS SCH (11:25)
[2017-09-07] MEDS: SUSTIVA PO SCH (11:26)
[2017-09-07] MEDS ORDERED: NACL 0.9% 1000 ML 1,000 ML IV SCH (14:00)
[2017-09-07] MEDS: DUONEB *Not for PRN Use IH SCH ×2 (14:36→19:23)
--- NOTE | 2017-09-07 15:49 | Gastroenterology Progress Note ---
Assessment and Plan GI: no further signs bleeding - start po - hold colonoscopy - if h/h stable in am ok to d/c - will follow Subjective Date of service: 09/07/17 Principal diagnosis: esrd Interval history: - pt w/o further signs bleeding overnight. Reports unable to complete prep Objective - Constitutional Vitals: Temp Pulse Resp BP Pulse Ox 97.8 F 102 H 18 175/72 97 09/07/17 12:20 09/07/17 12:20 09/07/17 12:20 09/07/17 12:20 09/07/17 08:57 General appearance: no acute distress - EENT Eyes: PERRL - Respiratory Respiratory: bilateral: CTA - Cardiovascular Rhythm: regular Heart Sounds: Present: S1 & S2 - Gastrointestinal General gastrointestinal: Present: soft, non-tender, non-distended - Labs CBC & Chem 7: 09/07/17 05:43 09/06/17 11:09 Labs: Laboratory Results - last 24 hr 09/06/17 09/07/17 11:09 05:43 WBC 8.4 RBC 3.30 L Hgb 9.7 L D Hct 29.9 L D MCV 91 MCH 29 MCHC 33 RDW 16.3 H Plt Count 123 L Lymph % (Auto) 7.9 L [place] % (Auto) 4.8 Eos % (Auto) 0.6 Baso % (Auto) 1.2 Lymph # 0.7 L [place] # 0.4 Eos # 0.0 Baso # 0.1 Seg Neutrophils % 85.5 H Seg Neutrophils # 7.2 Blood Type B POSITIVE Antibody Screen Negative Crossmatch See Detail
--- NOTE | 2017-09-07 16:11 | XRay Report ---
Portable chest: Persistent cough. The cardiac contour is enlarged. There is slight redistribution of flow to the upper lobes. These findings are unchanged compared to prior exam of June 25, 2016. The lungs are clear. No nodules and no infiltrates. Impression: Cardiomegaly with evidence of chronic mild cardiac decompensation.
[2017-09-07] MEDS: DILAUDID IV PRN (16:16)
[2017-09-07] MEDS: EPIVIR PO SCH ×2 (19:30→21:57)
[2017-09-08] MEDS: DUONEB *Not for PRN Use IH SCH ×2 (04:47→09:30)
[2017-09-08] MEDS: DILAUDID IV PRN ×4 (05:08→21:41)
[2017-09-08 05:49] LABS: Hematocrit 28.5 % (30.3-42.9); Hemoglobin 9.4 gm/dl (10.1-14.3); Mean Corpuscular HGB Conc 33 % (30-34); Mean Corpuscular Hemoglobin 29 pg (28-32); Mean Corpuscular Volume 88 fl (79-97); Platelet Count 125 K/mm3 (140-440); Red Blood Count 3.23 M/mm3 (3.65-5.03); Red Cell Distribution Width 16.6 % (13.2-15.2)
[2017-09-08 06:05] LABS: Calcium 8.2 mg/dL (8.4-10.2)
[2017-09-08] MEDS: SODIUM CHLORIDE FLUSH SYRINGE 10 ML IV SCH ×2 (09:17→21:42)
[2017-09-08] MEDS: CATAPRES PO SCH ×3 (09:27→21:39)
[2017-09-08] MEDS: MINIPRESS PO SCH ×2 (09:27→21:40)
[2017-09-08] MEDS: Renal Caps PO SCH (09:27)
[2017-09-08] MEDS: PROTONIX IV SCH (09:27)
[2017-09-08] MEDS: SUSTIVA PO SCH (09:28)
[2017-09-08] MEDS: LONITEN PO SCH ×2 (09:28→21:40)
[2017-09-08] MEDS ORDERED: VIREAD PO SCH (10:00)
--- NOTE | 2017-09-08 10:12 | Progress Note ---
Assessment and Plan Impression * End-stage renal disease * Symptomatic anemia of abl poa * gi bleeding * Hypertension * HIV disease Recommendations * prn packed RBC transfusion--s/p 2 units prbcs * Continue dialysis on MWF schedule * No IV, BP or of any puncture in access arm * no heparin with hd, epogen with hd * Further plans per GI services * Hold PO4 binders for now * adjust diet and meds for ESRD state Subjective Date of service: 09/08/17 Principal diagnosis: esrd Interval history: resting in bed today Objective - Exam Narrative Exam: General appearance: well-developed, well-nourished, appears stated age EENT: PERRL, mucous membranes moist Neck: Present: neck supple, trachea midline. Absent: JVD/HJR, Masses Respiratory: Clear to Ascultation Heart: regular, normal heart rate Gastrointestinal: Present: normal, normoactive bowel sounds Integumentary: no rash, other (1+ edema. AV fistula in her left upper arm. Good bruit and thrill) - Vital Signs Vital signs: Vital Signs - 12hr 09/08/17 03:05 Temperature 99.3 F Pulse Rate 114 H Respiratory 20 Rate Blood Pressure 143/67 O2 Sat by Pulse 95 Oximetry - Lab 09/08/17 05:28 09/08/17 05:28 Most recent lab results Calcium 8.2 mg/dL (8.4-10.2) L 09/08/17 05:28
--- NOTE | 2017-09-08 13:32 | Progress Note ---
Assessment and Plan Assessment and plan: 66 YO Female with HTN, Diastolic CHF, GERD, ESRD on HD (M,W,F), HIV Disease, Diverticulosis presents to ED for evaluation. Pt states that she has experienced rectal bleeding over the past 2 days, with an episode of large volume rectal bleeding today. The patient states blood was just "pouring" out of her like someone had "turned on a faucet." The patient complains of lower abdominal pain for the past 2 days as well as some rectal burning. The patient states she began feeling weak and dizzy and this prompted her to come to the ED. Patient states she feels more lightheaded when sitting up. Patient denies fever, chills, CP, Palpitations, NVD, Trauma, unintentional weight loss, night sweats, or recent ill contacts. Patient states she was last dialyzed yesterday. Nephrology consulted in ED. GI consulted in ED. Patient was recently in the hospital and underwent colonoscopy with snare polypectomy, there was also noted multiple diverticulosis coli GI bleed-Rectal. ESRD Severe Symptomatic Anemia secondary to GI bleed HIV HTN Diverticulosis Coli Secondary coagulopathy-?etiology CHF-STABLE Plan supportive care No further bleeding noted. GI input appreciated. Follow-up outpatient Check H&H in a.m. Pain control with hydromorphone S/P 2 unit PRBC with good response Avoid antiplatelets Continue anti-retroviral Outpatient hematology eval for further evaluation Tagged RBC scan was negative Continue dialysis per nephrology MWF DVT/GI PROPHY Plan discussed with the patient in detail patient verbalized understanding. Discharge in a.m. History Interval history: Patient seen and examined reports improvement in symptoms develop at her baseline. Concerned about discharged today due to lack of support at home Hospitalist Physical - Physical exam Narrative exam: VITAL SIGNS: Reviewed. GENERAL: The patient appeared chronically ill. Vital signs as documented. HEAD: No signs of head trauma. Temporal wasting EYES: Pupils are equal. Extraocular motions intact. EARS: Hearing grossly intact. MOUTH: Oropharynx is normal. NECK: No adenopathy, no JVD. CHEST: Chest with clear breath sounds bilaterally. No wheezes, rales, or rhonchi. CARDIAC: Regular rate and rhythm. S1 and S2, without murmurs, gallops, or rubs. VASCULAR: Fistula on the left arm with palpable chills No Edema. Peripheral pulses normal and equal in all extremities. ABDOMEN: Soft, without detectable tenderness. No sign of distention. No rebound or guarding, and no masses palpated. Bowel Sounds normal. MUSCULOSKELETAL: Good range of motion of all major joints. Extremities without clubbing, cyanosis or edema. NEUROLOGIC EXAM: Alert and oriented x 3. No focal sensory or strength deficits. Speech normal. Follows commands. PSYCHIATRIC: Mood normal. SKIN: No rash or lesions. - Constitutional Vitals: Temp Pulse Resp BP Pulse Ox 99.0 F 112 H 16 156/77 96 09/08/17 07:40 09/08/17 07:40 09/08/17 07:40 09/08/17 07:40 09/08/17 07:40 General appearance: Present: no acute distress, well-nourished Results - Labs CBC & Chem 7: 09/08/17 05:28 09/08/17 05:28 Labs: Laboratory Last Values WBC 7.1 K/mm3 (4.5-11.0) 09/08/17 05:28 RBC 3.23 M/mm3 (3.65-5.03) L 09/08/17 05:28 Hgb 9.4 gm/dl (10.1-14.3) L 09/08/17 05:28 Hct 28.5 % (30.3-42.9) L 09/08/17 05:28 MCV 88 fl (79-97) 09/08/17 05:28 MCH 29 pg (28-32) 09/08/17 05:28 MCHC 33 % (30-34) 09/08/17 05:28 RDW 16.6 % (13.2-15.2) H 09/08/17 05:28 Plt Count 125 K/mm3 (140-440) L 09/08/17 05:28 Lymph % (Auto) 7.9 % (13.4-35.0) L 09/07/17 05:43 Mclennan % (Auto) 4.8 % (0.0-7.3) 09/07/17 05:43 Eos % (Auto) 0.6 % (0.0-4.3) 09/07/17 05:43 Baso % (Auto) 1.2 % (0.0-1.8) 09/07/17 05:43 Lymph # 0.7 K/mm3 (1.2-5.4) L 09/07/17 05:43 Mclennan # 0.4 K/mm3 (0.0-0.8) 09/07/17 05:43 Eos # 0.0 K/mm3 (0.0-0.4) 09/07/17 05:43 Baso # 0.1 K/mm3 (0.0-0.1) 09/07/17 05:43 Seg Neutrophils % 85.5 % (40.0-70.0) H 09/07/17 05:43 Seg Neutrophils # 7.2 K/mm3 (1.8-7.7) 09/07/17 05:43 PT 20.7 Sec. (12.2-14.9) H 09/06/17 11:09 INR 1.67 (0.87-1.13) H 09/06/17 11:09 APTT 29.5 Sec. (24.2-36.6) 09/06/17 11:09 Sodium 137 mmol/L (137-145) 09/08/17 05:28 Potassium 4.0 mmol/L (3.6-5.0) 09/08/17 05:28 Chloride 96.6 mmol/L (98-107) L 09/08/17 05:28 Carbon Dioxide 26 mmol/L (22-30) 09/08/17 05:28 Anion Gap 18 mmol/L 09/08/17 05:28 BUN 13 mg/dL (7-17) 09/08/17 05:28 Creatinine 3.7 mg/dL (0.7-1.2) H 09/08/17 05:28 Estimated GFR 15 ml/min 09/08/17 05:28 BUN/Creatinine Ratio 4 % 09/08/17 05:28 Glucose 106 mg/dL (65-100) H 09/08/17 05:28 Calcium 8.2 mg/dL (8.4-10.2) L 09/08/17 05:28 Total Bilirubin 0.30 mg/dL (0.1-1.2) 09/06/17 11:09 AST 18 units/L (5-40) 09/06/17 11:09 ALT 8 units/L (7-56) 09/06/17 11:09 Alkaline Phosphatase 121 units/L (35-129) 09/06/17 11:09 Total Protein 5.1 g/dL (6.3-8.2) L 09/06/17 11:09 Albumin 2.4 g/dL (3.9-5) L 09/06/17 11:09 Albumin/Globulin Ratio 0.9 % 09/06/17 11:09 Lipase 14 units/L (13-60) 09/06/17 11:09 Blood Type B POSITIVE 09/06/17 11:09 Antibody Screen Negative 09/06/17 11:09 Crossmatch See Detail 09/06/17 11:09
[2017-09-08] MEDS: FLONASE NS SCH (15:23)
--- NOTE | 2017-09-08 16:11 | Gastroenterology Progress Note ---
Assessment and Plan GI: no further signs bleeding - diet as tolerated - follow h/h - ok to d/c in am if stable - will sign off, call if needed Subjective Date of service: 09/08/17 Principal diagnosis: esrd Interval history: - no signs bleeding overnight Objective - Constitutional Vitals: Temp Pulse Resp BP Pulse Ox 98.8 F 119 H 18 156/76 94 09/08/17 14:57 09/08/17 14:57 09/08/17 14:57 09/08/17 14:57 09/08/17 14:57 General appearance: no acute distress - EENT Eyes: PERRL - Respiratory Respiratory: bilateral: CTA - Cardiovascular Rhythm: regular Heart Sounds: Present: S1 & S2 - Gastrointestinal General gastrointestinal: Present: soft, non-tender, non-distended - Labs CBC & Chem 7: 09/08/17 05:28 09/08/17 05:28 Labs: Laboratory Results - last 24 hr 09/08/17 09/08/17 05:28 05:28 WBC 7.1 RBC 3.23 L Hgb 9.4 L Hct 28.5 L MCV 88 MCH 29 MCHC 33 RDW 16.6 H Plt Count 125 L Sodium 137 Potassium 4.0 Chloride 96.6 L Carbon Dioxide 26 Anion Gap 18 BUN 13 Creatinine 3.7 H Estimated GFR 15 BUN/Creatinine Ratio 4 Glucose 106 H Calcium 8.2 L
[2017-09-08] MEDS: EPIVIR PO SCH (17:12)
[2017-09-09] MEDS: DUONEB *Not for PRN Use IH SCH ×6 (02:18→14:30)
[2017-09-09 05:50] LABS: Hematocrit 27.3 % (30.3-42.9); Hemoglobin 8.9 gm/dl (10.1-14.3); Mean Corpuscular HGB Conc 33 % (30-34); Mean Corpuscular Hemoglobin 29 pg (28-32); Mean Corpuscular Volume 89 fl (79-97); Platelet Count 142 K/mm3 (140-440); Red Blood Count 3.07 M/mm3 (3.65-5.03); Red Cell Distribution Width 16.8 % (13.2-15.2)
[2017-09-09 06:14] LABS: Calcium 8.4 mg/dL (8.4-10.2)
[2017-09-09] MEDS: DILAUDID IV PRN ×3 (06:21→14:06)
--- NOTE | 2017-09-09 08:20 | Discharge Summary ---
Providers - Providers Date of Admission: 09/06/17 12:48 Attending physician: HOLA RDZ MD 09/06/17 12:44 Consult to Physician [CONS] Urgent Comment: DR Derrell HERNANDEZ NOTIFIED Consulting Provider: YUKI HERNANDEZ Physician Instructions: Reason For Exam: rectal bleeding 09/06/17 12:50 Consult to Physician [CONS] Routine Comment: DR ROCKWELL AWARE OF PT 1400 Consulting Provider: ARGELIA FRAIRE Physician Instructions: Reason For Exam: ESRD Primary care physician: SUBSTATION DESIGNER Hospitalization Reason for admission: GI bleed Condition: Stable Hospital course: 66 YO Female with HTN, Diastolic CHF, GERD, ESRD on HD (M,W,F), HIV Disease, Diverticulosis presents to ED for evaluation. Pt states that she has experienced rectal bleeding over the past 2 days, with an episode of large volume rectal bleeding today. The patient states blood was just "pouring" out of her like someone had "turned on a faucet." The patient complains of lower abdominal pain for the past 2 days as well as some rectal burning. The patient states she began feeling weak and dizzy and this prompted her to come to the ED. Patient states she feels more lightheaded when sitting up. Patient denies fever, chills, CP, Palpitations, NVD, Trauma, unintentional weight loss, night sweats, or recent ill contacts. Patient states she was last dialyzed yesterday. Nephrology consulted in ED. GI consulted in ED. Patient was recently in the hospital and underwent colonoscopy with snare polypectomy, there was also noted multiple diverticulosis coli. Patient assisting with packed red blood cell of her family could not complete her colonoscopy prep but her bleeding was noted to have stopped. Her hemoglobin remained relatively stable. GI recommended an outpatient evaluation. She continued to receive dialysis while in house. We did discuss about avoiding antiplatelet at this time. Discharge diagnosis GI bleed-Rectal. ESRD Severe Symptomatic Anemia secondary to GI bleed HIV HTN Diverticulosis Coli Secondary coagulopathy-?etiology CHF-STABLE Disposition: DC/TX-06 HOME UNDER HOME HL[facility] Time spent for discharge: 35 mins Core Measure Documentation - Palliative Care Palliative Care/ Comfort Measures: Not Applicable - Core Measures Any of the following diagnoses?: none - VTE Discharge Requirements Deep Vein Thrombosis/Pulmonary Embolism Present on Admission: No Exam - Physical Exam Narrative exam: VITAL SIGNS: Reviewed. GENERAL: The patient appeared chronically ill. Vital signs as documented. HEAD: No signs of head trauma. Temporal wasting EYES: Pupils are equal. Extraocular motions intact. EARS: Hearing grossly intact. MOUTH: Oropharynx is normal. NECK: No adenopathy, no JVD. CHEST: Chest with clear breath sounds bilaterally. No wheezes, rales, or rhonchi. CARDIAC: Regular rate and rhythm. S1 and S2, without murmurs, gallops, or rubs. VASCULAR: Fistula on the left arm with palpable chills No Edema. Peripheral pulses normal and equal in all extremities. ABDOMEN: Soft, without detectable tenderness. No sign of distention. No rebound or guarding, and no masses palpated. Bowel Sounds normal. MUSCULOSKELETAL: Good range of motion of all major joints. Extremities without clubbing, cyanosis or edema. NEUROLOGIC EXAM: Alert and oriented x 3. No focal sensory or strength deficits. Speech normal. Follows commands. PSYCHIATRIC: Mood normal. SKIN: No rash or lesions. - Constitutional Vitals: Temp Pulse Resp BP Pulse Ox 98.6 F 101 H 20 164/80 98 09/08/17 20:48 09/09/17 02:35 09/09/17 06:51 09/08/17 21:39 09/08/17 22:00 Plan Activity: advance as tolerated, fall precautions Diet: renal Special Instructions: record daily weights, record daily BP diary, home health RN Follow up with: JOSSUE PALMER MD [Primary Care Provider] - 3-5 Days YUKI HERNANDEZ MD [Staff Physician] - 7 Days CAITY ROCKWELL MD [Staff Physician] - 7 Days Forms: Accompanied Note Prescriptions: Pantoprazole [Protonix TAB] 40 mg PO DAILY #30 tablet
[2017-09-09] MEDS: CATAPRES PO SCH ×2 (09:10→14:08)
[2017-09-09] MEDS ORDERED: PROTONIX PO SCH (10:00)
--- NOTE | 2017-09-09 13:14 | Progress Note ---
Assessment and Plan Impression * End-stage renal disease * Symptomatic anemia of abl poa * gi bleeding * Hypertension * HIV disease Recommendations * prn packed RBC transfusion--s/p 2 units prbcs * Continue dialysis on MWF schedule * No IV, BP or of any puncture in access arm * no heparin with hd, epogen with hd * Further plans per GI services * Hold PO4 binders for now * adjust diet and meds for ESRD state Subjective Date of service: 09/09/17 Principal diagnosis: esrd Interval history: resting in bed today Objective - Exam Narrative Exam: General appearance: well-developed, well-nourished, appears stated age EENT: PERRL, mucous membranes moist Neck: Present: neck supple, trachea midline. Absent: JVD/HJR, Masses Respiratory: Clear to Ascultation Heart: regular, normal heart rate Gastrointestinal: Present: normal, normoactive bowel sounds Integumentary: no rash, other (1+ edema. AV fistula in her left upper arm. Good bruit and thrill) - Vital Signs Vital signs: Vital Signs - 12hr 09/09/17 09/09/17 09/09/17 02:19 02:35 06:21 Temperature Pulse Rate Pulse Rate [ 98 H 101 H Bilateral] Respiratory 20 Rate Respiratory 18 20 Rate [Bilateral ] Blood Pressure O2 Sat by Pulse Oximetry 09/09/17 09/09/17 09/09/17 06:51 07:30 09:10 Temperature 98.9 F Pulse Rate 100 H 100 H Pulse Rate [ Bilateral] Respiratory 20 20 Rate Respiratory Rate [Bilateral ] Blood Pressure 149/75 149/75 O2 Sat by Pulse 97 Oximetry 09/09/17 09/09/17 09/09/17 09:55 10:00 10:15 Temperature 98.9 F Pulse Rate 75 80 87 Pulse Rate [ Bilateral] Respiratory 20 Rate Respiratory Rate [Bilateral ] Blood Pressure 170/79 167/75 154/79 O2 Sat by Pulse Oximetry 09/09/17 09/09/17 09/09/17 10:30 10:45 11:00 Temperature Pulse Rate 83 83 84 Pulse Rate [ Bilateral] Respiratory Rate Respiratory Rate [Bilateral ] Blood Pressure 161/74 163/76 156/71 O2 Sat by Pulse Oximetry 09/09/17 09/09/17 09/09/17 11:15 11:30 11:45 Temperature Pulse Rate 84 87 88 Pulse Rate [ Bilateral] Respiratory Rate Respiratory Rate [Bilateral ] Blood Pressure 150/72 157/74 164/75 O2 Sat by Pulse Oximetry 09/09/17 09/09/17 09/09/17 12:00 12:15 12:30 Temperature Pulse Rate 90 85 86 Pulse Rate [ Bilateral] Respiratory Rate Respiratory Rate [Bilateral ] Blood Pressure 168/74 169/68 182/76 O2 Sat by Pulse Oximetry 09/09/17 09/09/17 12:45 13:00 Temperature Pulse Rate 89 84 Pulse Rate [ Bilateral] Respiratory Rate Respiratory Rate [Bilateral ] Blood Pressure 160/80 168/78 O2 Sat by Pulse Oximetry - Lab 09/09/17 05:22 09/09/17 05:22 Most recent lab results Calcium 8.4 mg/dL (8.4-10.2) 09/09/17 05:22
[2017-09-09] MEDS: LONITEN PO SCH (14:07)
[2017-09-09] MEDS: Renal Caps PO SCH (14:08)
[2017-09-09] MEDS: MINIPRESS PO SCH (14:08)
[2017-09-09] MEDS: SODIUM CHLORIDE FLUSH SYRINGE 10 ML IV SCH (14:09)
[2017-09-09] MEDS ORDERED: ZOFRAN ODT PO PRN (14:58)
[2017-09-09 17:02] VITALS: BP 143/86
[2017-09-09] MEDS: FLONASE NS SCH (17:10)
[2017-09-09] MEDS ORDERED: SUSTIVA PO SCH (22:00)
[2017-09-15] MEDS ORDERED: VIREAD PO SCH (22:00)
== END 2017-09-09 16:30 | disposition home or self-care (01) | DRG 377 ==
LOC: ED 10:33 → 4A 12:48 → 2B-ACE 09-07 00:08
PROVIDERS: ADMIT Internal Medicine; ATTEND Internal Medicine
PROC: 30233N1 Transfusion of Nonautologous Red Blood Cells into Peripheral Vein, Percutaneous Approach (ICD-10-PCS; principal; 2017-09-06)
PROC: 5A1D70Z Performance of Urinary Filtration, Intermittent, Less than 6 Hours Per Day (ICD-10-PCS; 2017-09-07)
PROC: 5A1D70Z Performance of Urinary Filtration, Intermittent, Less than 6 Hours Per Day (ICD-10-PCS; 2017-09-09)
DX: K57.31 Diverticulosis of large intestine without perforation or abscess with bleeding (principal); B20 Human immunodeficiency virus [HIV] disease; N18.6 End stage renal disease; I50.33 Acute on chronic diastolic (congestive) heart failure; D62 Acute posthemorrhagic anemia; I13.2 Hypertensive heart and chronic kidney disease with heart failure and with stage 5 chronic kidney disease, or end stage renal disease; D68.8 Other specified coagulation defects; K62.5 Hemorrhage of anus and rectum; K21.9 Gastro-esophageal reflux disease without esophagitis; Z99.2 Dependence on renal dialysis; Z88.6 Allergy status to analgesic agent; Z90.49 Acquired absence of other specified parts of digestive tract; Z82.49 Family history of ischemic heart disease and other diseases of the circulatory system; Z88.5 Allergy status to narcotic agent
CPT/HCPCS: 36415; 36430; 71045; 78278; 80048; 80053; 82271; 83690; 85025; 85027; 85610; 85730; 86850; 86900; 86901; 86920; 93005; 93010; 94640; A9560; C9113; J0885; J1170; J1642; J2405; J7030; J7040; P9016; Q0162

== ENCOUNTER 2017-11-16 13:38 | Inpatient (IN) | payer MEDICARE ==
[2017-11-16] MEDS ORDERED: NACL 0.9% 1000 ML 1,000 ML IV ONE (13:48)
--- NOTE | 2017-11-16 14:14 | Emergency Department Report ---
HPI - General Chief Complaint: Recheck/Abnormal Lab/Rx Time Seen by Provider: 11/16/17 13:49 - HPI HPI: 67-year-old female presents to the emergency department via EMS from dialysis and was sent here secondary to having low hemoglobin. She is normally end-stage renal disease on hemodialysis on Tuesday/Tuesday/Tuesday and says that she did last have it on Tuesday. Her sales exhibitor is Dr. Vegas. She has a past medical history as well of CHF, GERD, HIV, hypertension. She complains of some generalized weakness. She also has the complaint of some mild shortness of breath. She denies any fever, chest pain, nausea, vomiting. There is some mild lower external swelling. No recent travel or sick contacts at home. ED Past Medical Hx - Past Medical History Hx Hypertension: Yes Hx Heart Attack/AMI: No Hx Congestive Heart Failure: Yes Hx Diabetes: No Hx GERD: Yes Hx Liver Disease: Yes (abnormal liver function test, coagulopathy, mass on liver ) Hx Renal Disease: Yes (M, W, F) Hx Arthritis: No Hx Asthma: No Hx COPD: No Hx HIV: Yes - Surgical History Hx Coronary Stent: No Hx Open Heart Surgery: No Hx Pacemaker: No Hx Internal Defibrillator: No Hx Cholecystectomy: No Hx Appendectomy: Yes Hx Breast Surgery: No Additional Surgical History: PD catheter -removed. FISTULA LEFT ARM - Social History Smoking Status: Former Smoker - Medications Home Medications: Home Medications Medication Instructions Recorded Confirmed Last Taken Type Efavirenz [Sustiva] 600 mg PO DAILY 03/18/16 11/16/17 11/15/17 History Terazosin [Hytrin] 10 mg PO BID PRN 03/18/16 11/16/17 11/15/17 History Tenofovir [Viread] 300 mg PO QWEEK 08/30/16 11/16/17 09/01/17 History Fluticasone [Flonase] 1 spray NS QDAY #1 bottle 07/27/17 11/16/17 Unknown Rx B Complex 11/Folic/C/Biot/Zinc 1 each PO QDAY 08/23/17 11/16/17 11/15/17 History [Dialyvite with Zinc Tablet] lamiVUDine [Epivir] 150 mg PO QPM 08/23/17 11/16/17 11/15/17 History Calcium Acetate [Phoslo] 1,334 mg PO TIDWM 09/06/17 11/16/17 11/15/17 History cloNIDine [Catapres] 0.2 mg PO QID 09/06/17 11/16/17 11/16/17 History Pantoprazole [Protonix TAB] 40 mg PO DAILY #30 tablet 09/09/17 11/16/17 Rx Minoxidil [Loniten] 10 mg PO BID PRN 11/16/17 11/16/17 11/15/17 History ED Review of Systems ROS: Stated complaint: WEAKNESS Other details as noted in HPI Comment: All other systems reviewed and negative Constitutional: denies: chills, fever Eyes: denies: eye pain, eye discharge, vision change ENT: denies: ear pain, throat pain Respiratory: shortness of breath. denies: cough Cardiovascular: edema. denies: chest pain Gastrointestinal: denies: nausea, vomiting Genitourinary: denies: dysuria, discharge Musculoskeletal: denies: back pain, arthralgia Skin: denies: rash, lesions Neurological: denies: headache, numbness Physical Exam - Physical Exam Vital Signs: Vital Signs 11/16/17 13:41 Temperature 98.7 F Pulse Rate 85 Respiratory 20 Rate Blood Pressure 128/68 O2 Sat by Pulse 100 Oximetry Physical Exam: GENERAL: The patient is well-developed well-nourished. HENT: Normocephalic. Atraumatic. Patient has moist mucous membranes. EYES: Extraocular motions are intact. Pupils equal reactive to light bilaterally. NECK: Supple. Trachea is midline. CHEST/LUNGS: Mild coarse breath sounds. No tachypnea or accessory muscle use. There is no respiratory distress noted. HEART/CARDIOVASCULAR: Regular. There is no tachycardia. There is no murmur. ABDOMEN: Abdomen is soft. Patient has normal bowel sounds. There is no abdominal distention. SKIN: Skin is warm and dry. Mild lower extremity swelling. NEURO: The patient is awake, alert, and oriented. The patient is cooperative. The patient has no focal neurologic deficits. The patient has normal speech. MUSCULOSKELETAL: There is no tenderness or deformity. There is no evidence of acute injury. ED Course Vital Signs 11/16/17 13:41 Temperature 98.7 F Pulse Rate 85 Respiratory 20 Rate Blood Pressure 128/68 O2 Sat by Pulse 100 Oximetry ED Medical Decision Making - Lab Data Result diagrams: 11/16/17 13:51 11/16/17 13:51 - EKG Data -: EKG Interpreted by Me EKG shows normal: sinus rhythm, axis, intervals, QRS complexes (LVH), ST-T waves Rate: normal - EKG Data When compared to previous EKG there are: no significant change Interpretation: unchanged when compared t (09/10/17) - Radiology Data Radiology results: image reviewed interpreted by me: Chest x-ray shows mild pulmonary vascular congestion. No pneumonia, focal consolidation or obvious pleural effusions. - Medical Decision Making Patient presents from dialysis without having dialysis secondary to low hemoglobin that was found. She has some shortness of breath but does not appear to be in any type of respiratory distress. Chest x-ray does not show any significant volume overload but there is some mild vascular congestion. Patient's labs show a hemoglobin of 4.4. Mostly related to her anemia of chronic kidney disease. I have initiated transfusion with packed red blood cells. The nephrology service has been contacted regarding a consult for her end-stage renal disease and needing dialysis. Vital signs stable throughout her ED course thus far. The patient will be admitted to the hospital for further evaluation and treatment was accepted for admission by the hospitalist, Dr. Spence. - Differential Diagnosis CHF, iron deficiency, anemia of CKD, dysrythmia Critical Care Time: Yes Critical care time in (mins) excluding proc time.: 31 Critical care attestation.: If time is entered above; I have spent that time in minutes in the direct care of this critically ill patient, excluding procedure time. Critical care time was spent on this patient and doing her initial evaluation, multiple re-evaluations, discussions with the nephrology service and admitting hospitalist, ordering and interpretation of labs and imaging, ordering and monitoring for blood transfusion. Critical Care Time: 31 minutes ED Disposition Clinical Impression: Anemia requiring transfusions, Dyspnea, ESRD on hemodialysis Disposition: OP ADMIT IP TO THIS HOSP Is pt being admited?: Yes Condition: Fair Time of Disposition: 16:26
[2017-11-16 14:15] LABS: Basophils # (Auto) 0.1 K/mm3 (0.0-0.1); Basophils % (Auto) 2.2 % (0.0-1.8); Eosinophils % (Auto) 0.7 % (0.0-4.3); Lymphocytes % (Auto) 17.8 % (13.4-35.0); Mean Corpuscular HGB Conc 31 % (30-34); Mean Corpuscular Hemoglobin 30 pg (28-32); Mean Corpuscular Volume 96 fl (79-97); Monocytes # (Auto) 0.3 K/mm3 (0.0-0.8); Monocytes % (Auto) 5.4 % (0.0-7.3); Platelet Count 136 K/mm3 (140-440); Red Blood Count 1.49 M/mm3 (3.65-5.03)
[2017-11-16] MEDS ORDERED: DILAUDID IV ONE (14:15)
[2017-11-16 14:26] LABS: Hematocrit 14.3 % (30.3-42.9); Hemoglobin 4.4 gm/dl (10.1-14.3); INR 1.39 (0.87-1.13); Red Cell Distribution Width 21.1 % (13.2-15.2)
[2017-11-16 14:27] LABS: Partial Thromboplastin Time 34.6 Sec. (24.2-36.6)
[2017-11-16 14:33] LABS: Albumin 2.5 g/dL (3.9-5)
--- NOTE | 2017-11-16 15:14 | History and Physical Report ---
History of Present Illness Chief complaint: I feel weak History of present illness: 67 YO Female with HTN, Diastolic CHF, GERD, ESRD on HD (M,W,F), HIV Disease, Diverticulosis presents to ED for evaluation. Pt states that she has experienced generalized weakness, shortness of breath, and decreased exercise tolerance over the past 2 weeks. Pt presented to her dialysis unit today for routine dialysis and was found to have hgb of around 4. EMS was notified, and patient transported to [facility] for further care and evaluation. Pt seen and evaluated in ED and found to have ESRD complicated by Symptomatic anemia. Nephrology consulted in ED. GI consulted in ED. Patient denies fever, chills, CP , Palpitations, NVD, Trauma, unintentional weight loss, night sweats, BRBPR, productive cough, or recent ill contacts. Past History Past Medical History: ESRD, GERD, heart failure, HIV/AIDS, hypertension Past Surgical History: Other (colonoscopy, LUE AVF) Social history: , lives with family. denies: smoking, alcohol abuse, prescription drug abuse Family history: hypertension Medications and Allergies Allergies Allergy/AdvReac Type Severity Reaction Status Date / Time codeine Allergy HALLUCINATE Verified 08/18/17 17:25 morphine Allergy hallucinati Verified 08/24/17 00:04 on hydralazine AdvReac Vomiting Verified 08/18/17 17:25 Home Medications Medication Instructions Recorded Confirmed Last Taken Type Efavirenz [Sustiva] 600 mg PO DAILY 03/18/16 11/16/17 11/15/17 History Terazosin [Hytrin] 10 mg PO BID PRN 03/18/16 11/16/17 11/15/17 History Tenofovir [Viread] 300 mg PO QWEEK 08/30/16 11/16/17 09/01/17 History Fluticasone [Flonase] 1 spray NS QDAY #1 bottle 07/27/17 11/16/17 Unknown Rx B Complex 11/Folic/C/Biot/Zinc 1 each PO QDAY 08/23/17 11/16/17 11/15/17 History [Dialyvite with Zinc Tablet] lamiVUDine [Epivir] 150 mg PO QPM 08/23/17 11/16/17 11/15/17 History Calcium Acetate [Phoslo] 1,334 mg PO TIDWM 09/06/17 11/16/1718 History cloNIDine [Catapres] 0.2 mg PO QID 09/06/17 11/16/17 11/16/17 History Pantoprazole [Protonix TAB] 40 mg PO DAILY #30 tablet 09/09/17 11/16/17 Rx Minoxidil [Loniten] 10 mg PO BID PRN 11/16/17 11/16/17 11/15/17 History Review of Systems Constitutional: weakness, no weight loss, no weight gain, no fever Ears, nose, mouth and throat: no ear pain, no ear discharge, no tinnitis, no decreased hearing, no nose pain, no nasal congestion Breasts: no change in shape, no swelling, no mass Cardiovascular: no chest pain, no orthopnea, no palpitations, no rapid/ irregular heart beat, no edema, no syncope Respiratory: no cough, no cough with sputum, no excessive sputum, no hemoptysis , no shortness of breath, no dyspnea on exertion Gastrointestinal: no abdominal pain, no nausea, no constipation, no change in bowel habits, no hematemesis Genitourinary Female: no pelvic pain, no flank pain, no menorrhagia, no dysuria , no urinary frequency, no urgency Rectal: no pain, no incontinence, no bleeding Musculoskeletal: no neck stiffness, no neck pain, no shooting arm pain, no arm numbness/tingling, no low back pain, no shooting leg pain Integumentary: no rash, no pruritis, no redness, no sores, no wounds Neurological: no head injury, no transient paralysis, no paralysis, no weakness , no parathesias, no numbness Psychiatric: no anxiety, no memory loss, no change in sleep habits, no sleep disturbances, no insomnia, no hypersomnia, no change in appetite Endocrine: no cold intolerance, no heat intolerance, no polyphagia, no excessive thirst, no polydipsia, no polyuria Hematologic/Lymphatic: no easy bruising, no easy bleeding, no lymphadenopathy, no lymphedema Allergic/Immunologic: no urticaria, no allergic rhinitis, no wheezing, no persistent infections, no anaphylaxis, no angioedema Exam - Constitutional Vitals: Temp Pulse Resp BP Pulse Ox 98.7 F 85 18 128/68 97 11/16/17 13:41 11/16/17 13:41 11/16/17 14:21 11/16/17 13:41 11/16/17 14:21 General appearance: Present: mild distress - EENT Eyes: Present: PERRL ENT: hearing intact, clear oral mucosa - Neck Neck: Present: supple, normal ROM - Respiratory Respiratory effort: normal Respiratory: bilateral: CTA - Cardiovascular Heart Sounds: Present: S1 & S2. Absent: rub, click - Extremities Extremities: pulses symmetrical, No edema Peripheral Pulses: within normal limits - Abdominal General gastrointestinal: Present: soft, non-tender, non-distended, normal bowel sounds Female genitourinary: Present: normal - Integumentary Integumentary: Present: clear, warm, dry - Musculoskeletal Musculoskeletal: gait normal, strength equal bilaterally - Psychiatric Psychiatric: appropriate mood/affect, intact judgment & insight - Neurologic Neurologic: CNII-XII intact, moves all extremities Results - Labs CBC & Chem 7: 11/16/17 13:51 11/16/17 13:51 Labs: Abnormal lab results 11/16/17 11/16/17 11/16/17 Range/Units 13:51 13:51 13:51 RBC 1.49 L (3.65-5.03) M/mm3 Hgb 4.4 L* (10.1-14.3) gm/dl Hct 14.3 L* (30.3-42.9) % RDW 21.1 H (13.2-15.2) % Plt Count 136 L (140-440) K/mm3 Baso % (Auto) 2.2 H (0.0-1.8) % Lymph # 1.0 L (1.2-5.4) K/mm3 Seg Neutrophils % 73.9 H (40.0-70.0) % PT 17.9 H (12.2-14.9) Sec. INR 1.39 H (0.87-1.13) Potassium 3.5 L (3.6-5.0) mmol/L Chloride 96.7 L (98-107) mmol/L BUN 25 H (7-17) mg/dL Creatinine 5.6 H (0.7-1.2) mg/dL Calcium 8.0 L (8.4-10.2) mg/dL Total Protein 5.3 L (6.3-8.2) g/dL Albumin 2.5 L (3.9-5) g/dL Assessment and Plan - Patient Problems (1) CHF (congestive heart failure) Current Visit: Yes Status: Acute Qualifiers: Heart failure type: diastolic Plan to address problem: Strict I/O, monitor uop q shift, afterload reduction, dialysis as per renal team , chest x ray, (2) ESRD on hemodialysis Current Visit: Yes Status: Chronic Plan to address problem: Nephrology consulted in ED, avoid nephrotoxic agents, dialysis as per renal team. (3) HIV disease Current Visit: Yes Status: Acute Plan to address problem: resume antiretroviral therapy, outpatient ID f/u care. (4) GI bleed Current Visit: Yes Status: Acute Qualifiers: GI bleed type/associated pathology: diverticulosis Qualified Code(s): K57.91 - Diverticulosis of intestine, part unspecified, without perforation or abscess with bleeding Plan to address problem: PRBC transfusion, IV ppi therapy, GI consulted in ED, stool for occult blood (5) Anemia Current Visit: Yes Status: Acute Qualifiers: Anemia type: due to chronic kidney disease Chronic kidney disease stage: on chronic dialysis Qualified Code(s): N18.6 - End stage renal disease; D63.1 - Anemia in chronic kidney disease; Z99.2 - Dependence on renal dialysis Plan to address problem: PRBC transfusion with dialysis, repeat CBC, (6) DVT prophylaxis Current Visit: Yes Status: Acute Plan to address problem: SCD to BLE while in bed.
[2017-11-16] MEDS ORDERED: PROVENTIL IH PRN (15:16)
[2017-11-16] MEDS ORDERED: ZOFRAN IV PRN (15:16)
[2017-11-16] MEDS ORDERED: SODIUM CHLORIDE FLUSH SYRINGE 10 ML IV PRN (15:16)
[2017-11-16] MEDS ORDERED: TYLENOL PO PRN (15:16)
[2017-11-16] MEDS ORDERED: LONITEN PO PRN (15:17)
[2017-11-16] MEDS ORDERED: NON-FORMULARY (Terazosin 10 MG) PO PRN (15:17)
[2017-11-16] MEDS ORDERED: NACL 0.9% 500 ML 500 ML IV ONE (15:24)
[2017-11-16] MEDS ORDERED: MINIPRESS PO PRN ×2 (15:34→16:00)
[2017-11-16] MEDS ORDERED: NACL 0.9% 500 ML 500 ML ONE (16:26)
[2017-11-16] MEDS ORDERED: NACL 0.9% 500 ML 500 ML IV SCH (17:03)
--- NOTE | 2017-11-16 17:03 | XRay Report ---
FINAL REPORT EXAM: XR CHEST 1V AP HISTORY: SOB TECHNIQUE: Frontal portable examination of the chest PRIORS: Abdomen radiographs and AP CT 08/18/2017 FINDINGS: Stable atelectasis or scar left lung base. New linear atelectasis right lung base. New slight right CP angle pleural thickening compatible with small pleural effusion. Cardiac silhouette size markedly enlarged without definite evidence of vascular congestion. Nonspecific new slight patchy opacity right lower lung may be edema or pneumonitis. No pneumothorax. No acute displaced fracture. IMPRESSION: Marked cardiomegaly without definite evidence of vascular congestion New small focus of patchy opacity right lower lung may be edema or pneumonitis New linear atelectasis just above right CP angle Suggestion of new small right pleural effusion Stable atelectasis or scar in left lung base
[2017-11-16] MEDS ORDERED: LASIX IV ONE (17:04)
[2017-11-16] MEDS ORDERED: EPIVIR PO SCH (18:00)
[2017-11-16] MEDS ORDERED: LAMIVUDINE 150 MG PO SCH (18:00)
[2017-11-16] MEDS: CATAPRES PO SCH ×2 (18:29→22:06)
[2017-11-16] MEDS: PHOSLO PO SCH (18:54)
[2017-11-16] MEDS: DILAUDID IV PRN (22:05)
[2017-11-16] MEDS: PROTONIX IV SCH (22:08)
[2017-11-16] MEDS: SODIUM CHLORIDE FLUSH SYRINGE 10 ML IV SCH (22:09)
[2017-11-17] MEDS: DILAUDID IV PRN ×4 (03:13→18:25)
[2017-11-17] MEDS ORDERED: LASIX IV ONE (04:42)
[2017-11-17 05:19] LABS: Hematocrit 22.7 % (30.3-42.9); Hemoglobin 7.5 gm/dl (10.1-14.3)
[2017-11-17 07:09] LABS: Hematocrit 23.6 % (30.3-42.9); Hemoglobin 7.6 gm/dl (10.1-14.3)
--- NOTE | 2017-11-17 07:48 | Progress Note ---
Assessment and Plan Assessment and plan: 67 YO Female with HTN, Diastolic CHF, GERD, ESRD on HD (M,W,F), HIV Disease, Diverticulosis presents to ED for evaluation with a prior admission of Rectal bleeding which was heavy a the time but did not require transfusion and stopped. Had undergone a colonosocopy with polypectomy and no clear identification of the bleeding source, with recommendation to follow with GI outpatient presents via EMS after she was noted during routine dialysis to have a hgb of 4. She also reported generalized weakness, shortness of breath, and decreased exercise tolerance over the past 2 weeks. Pt seen and evaluated in ED and found to have ESRD complicated by Symptomatic anemia. Nephrology consulted in ED. GI consulted in ED. Patient denies fever, chills, CP, Palpitations, NVD, Trauma, unintentional weight loss, night sweats, BRBPR, productive cough, or recent ill contacts. Symptomatic Anemia Severe Blood loss anemia with GI source ESRD Hypertensive Urgency- Resolved Tachycardia Acute on chronic Diastolic Congestive Heart failure Moderate to severe protein calorie Malnutrition Secondary Hypercoagluable state HIV HTN PLAN - Continue supportive care - GI evaluation pending - May need cardiology eval outpatient for recurrent tachycardia if not resolving following transfusion. - Start low dose Atenolol - Continue IV PPI BID - Continue ANTIRETROVIRAL AND Outpatient ID f/u care on discharge - Nephrology for HD - Low salt diet. Strict I/O, daily weight - Outpatient Hematology eval for secondary hypergcaogluable state - DVT/GI prophy History Interval history: Patient seen and examined in no acute distress. Resting comfortably. Reports occasional palpitation with no associated chest pain or dizziness. Hospitalist Physical - Physical exam Narrative exam: VITAL SIGNS: Reviewed. GENERAL: The patient appeared well nourished and normally developed. Vital signs as documented. HEAD: No signs of head trauma. EYES: Pupils are equal. Extraocular motions intact. EARS: Hearing grossly intact. MOUTH: Oropharynx is normal. NECK: No adenopathy, no JVD. CHEST: Chest with clear breath sounds bilaterally. No wheezes, rales, or rhonchi. CARDIAC: Tachycardia but Regular rhythm. S1 and S2, without murmurs, gallops, or rubs. VASCULAR: No Edema. Peripheral pulses normal and equal in all extremities. ABDOMEN: Soft, without detectable tenderness. No sign of distention. No rebound or guarding, and no masses palpated. Bowel Sounds normal. MUSCULOSKELETAL: Good range of motion of all major joints. Extremities without clubbing, cyanosis or edema. NEUROLOGIC EXAM: Alert and oriented x 3. No focal sensory or strength deficits. Speech normal. Follows commands. PSYCHIATRIC: Mood normal. SKIN: Left arm AVF. - Constitutional Vitals: Temp Pulse Resp BP Pulse Ox 99.1 F 91 H 20 144/56 100 11/17/17 03:23 11/17/17 03:23 11/17/17 03:23 11/17/17 03:23 11/17/17 03:23 General appearance: Present: mild distress Results - Labs CBC & Chem 7: 11/18/17 02:39 11/18/17 02:39 Labs: Laboratory Last Values WBC 5.6 K/mm3 (4.5-11.0) 11/16/17 13:51 RBC 1.49 M/mm3 (3.65-5.03) L 11/16/17 13:51 Hgb 7.6 gm/dl (10.1-14.3) L 11/17/17 06:41 Hct 23.6 % (30.3-42.9) L 11/17/17 06:41 MCV 96 fl (79-97) 11/16/17 13:51 MCH 30 pg (28-32) 11/16/17 13:51 MCHC 31 % (30-34) 11/16/17 13:51 RDW 21.1 % (13.2-15.2) H 11/16/17 13:51 Plt Count 136 K/mm3 (140-440) L 11/16/17 13:51 Lymph % (Auto) 17.8 % (13.4-35.0) 11/16/17 13:51 George % (Auto) 5.4 % (0.0-7.3) 11/16/17 13:51 Eos % (Auto) 0.7 % (0.0-4.3) 11/16/17 13:51 Baso % (Auto) 2.2 % (0.0-1.8) H 11/16/17 13:51 Lymph # 1.0 K/mm3 (1.2-5.4) L 11/16/17 13:51 George # 0.3 K/mm3 (0.0-0.8) 11/16/17 13:51 Eos # 0.0 K/mm3 (0.0-0.4) 11/16/17 13:51 Baso # 0.1 K/mm3 (0.0-0.1) 11/16/17 13:51 Seg Neutrophils % 73.9 % (40.0-70.0) H 11/16/17 13:51 Seg Neutrophils # 4.1 K/mm3 (1.8-7.7) 11/16/17 13:51 PT 17.9 Sec. (12.2-14.9) H 11/16/17 13:51 INR 1.39 (0.87-1.13) H 11/16/17 13:51 APTT 34.6 Sec. (24.2-36.6) 11/16/17 13:51 Sodium 139 mmol/L (137-145) 11/16/17 13:51 Potassium 3.5 mmol/L (3.6-5.0) L 11/16/17 13:51 Chloride 96.7 mmol/L (98-107) L 11/16/17 13:51 Carbon Dioxide 30 mmol/L (22-30) 11/16/17 13:51 Anion Gap 16 mmol/L 11/16/17 13:51 BUN 25 mg/dL (7-17) H 11/16/17 13:51 Creatinine 5.6 mg/dL (0.7-1.2) H 11/16/17 13:51 Estimated GFR 9 ml/min 11/16/17 13:51 BUN/Creatinine Ratio 4 % 11/16/17 13:51 Glucose 92 mg/dL (65-100) 11/16/17 13:51 Calcium 8.0 mg/dL (8.4-10.2) L 11/16/17 13:51 Total Bilirubin 0.20 mg/dL (0.1-1.2) 11/16/17 13:51 AST 23 units/L (5-40) 11/16/17 13:51 ALT 7 units/L (7-56) 11/16/17 13:51 Alkaline Phosphatase 92 units/L (35-129) 11/16/17 13:51 Total Protein 5.3 g/dL (6.3-8.2) L 11/16/17 13:51 Albumin 2.5 g/dL (3.9-5) L 11/16/17 13:51 Albumin/Globulin Ratio 0.9 % 11/16/17 13:51 Lipase 22 units/L (13-60) 11/16/17 13:51 TSH 3.890 mlU/mL (0.270-4.200) 11/16/17 14:04 Blood Type B POSITIVE 11/16/17 13:51 Antibody Screen Negative 11/16/17 13:51 Crossmatch See Detail 11/16/17 13:51 - Imaging and Cardiology Chest x-ray: image reviewed (new small focus patchy opacity right lower lobe)
[2017-11-17] MEDS: PHOSLO PO SCH ×3 (08:30→18:17)
[2017-11-17] MEDS: CATAPRES PO SCH ×4 (09:37→21:19)
[2017-11-17] MEDS: Renal Caps PO SCH (09:37)
[2017-11-17] MEDS: PROTONIX IV SCH ×2 (09:38→21:20)
[2017-11-17] MEDS: FLONASE NS SCH (09:50)
--- NOTE | 2017-11-17 09:54 | Gastroenterology Consultation ---
History of Present Illness - Reason for Consult Consult date: 11/17/17 GI bleed/anemia Requesting physician: CHRISTINE RAMIREZ - History of Present Illness Patient is a 66 y/o female with PMH of ESRD on HD, CHF, HIV, and HTN who was sent to ED for an evaluation after she was found to have a HGB of 4 during routine dialysis with associated generalized weakness, SOB, and decreased exercise tolerance and was admitted with symptomatic anemia to which GI has been consulted. This morning patient was resting in bed w/o acute distress. She states she is now feeling better s/p blood transfusion. She reports having multiple episodes of rectal bleeding with a large amount of bright red blood mixed with clots this past Tuesday and Tuesday but states that the bleeding has since resolved with no further signs of bleeding in the past 4 days. No hematemesis or melena. Denies CP, SOB, dizziness, wt loss, N/V, or diarrhea. Has chronic constipation which is improved with taking stool softeners at home. Tolerating diet. Patient is well known to our service with multiple hospitalizations this year with similar symptoms with etiology thought to be diverticular in nature. She underwent a colonoscopy on 08/25/17 that revealed multiple polyps (TA), extensive diverticulosis of the left colon, and internal hemorrhoids. Last EGD 10/2016 showed gastritis and esophagitis (bx (-) for h pylori/barretts). Past History Past Medical History: ESRD, GERD, heart failure, HIV/AIDS, hypertension Past Surgical History: appendectomy, Other (colonoscopy, LUE AVF, removal of PD catheter) Social history: , lives with family. denies: smoking, alcohol abuse, prescription drug abuse Family history: hypertension Medications and Allergies Allergies Allergy/AdvReac Type Severity Reaction Status Date / Time codeine Allergy HALLUCINATE Verified 08/18/17 17:25 morphine Allergy hallucinati Verified 08/24/17 00:04 on hydralazine AdvReac Vomiting Verified 08/18/17 17:25 Home Medications Medication Instructions Recorded Confirmed Last Taken Type Efavirenz [Sustiva] 600 mg PO DAILY 03/18/16 11/16/17 11/15/17 History Terazosin [Hytrin] 10 mg PO BID PRN 03/18/16 11/16/17 11/15/17 History Tenofovir [Viread] 300 mg PO QWEEK 08/30/16 11/16/17 09/01/17 History Fluticasone [Flonase] 1 spray NS QDAY #1 bottle 07/27/17 11/16/17 Unknown Rx B Complex 11/Folic/C/Biot/Zinc 1 each PO QDAY 08/23/17 11/16/17 11/15/17 History [Dialyvite with Zinc Tablet] lamiVUDine [Epivir] 150 mg PO QPM 08/23/17 11/16/17 11/15/17 History Calcium Acetate [Phoslo] 1,334 mg PO TIDWM 09/06/17 11/16/17 11/15/17 History cloNIDine [Catapres] 0.2 mg PO QID 09/06/17 11/16/17 11/16/17 History Pantoprazole [Protonix TAB] 40 mg PO DAILY #30 tablet 09/09/17 11/16/17 Rx Minoxidil [Loniten] 10 mg PO BID PRN 11/16/17 11/16/17 11/15/17 History Active Meds: Active Medications Acetaminophen (Tylenol) 650 mg PO Q4H PRN PRN Reason: Pain MILD(1-3)/Fever >100.5/SAEED Albuterol (Proventil) 2.5 mg IH Q4HRT PRN PRN Reason: Shortness Of Breath Calcium Acetate (Phoslo) 1,334 mg PO TIDWM [facility] Last Admin: 11/16/17 18:54 Dose: 1,334 mg Clonidine HCl (Catapres) 0.2 mg PO QID [facility] Last Admin: 11/17/17 09:37 Dose: 0.2 mg Efavirenz (Sustiva) 600 mg PO QHS [facility] Fluticasone Propionate (Flonase) 50 mcg NS QDAY [facility] Hydromorphone HCl (Dilaudid) 0.25 mg IV Q3H PRN PRN Reason: Pain , Severe (7-10) Last Admin: 11/17/17 09:49 Dose: 0.25 mg Lamivudine (Epivir) 50 mg PO QPM [facility] Minoxidil (Loniten) 10 mg PO BID PRN PRN Reason: Blood Pressure Multivit/Ca Carb/B Cmplx/FA/Prenat (Renal Caps) 1 cap PO QDAY [facility] Last Admin: 11/17/17 09:37 Dose: 1 cap Ondansetron HCl (Zofran) 4 mg IV Q8H PRN PRN Reason: Nausea And Vomiting Pantoprazole Sodium (Protonix) 40 mg IV BID [facility] Last Admin: 11/17/17 09:38 Dose: 40 mg Prazosin HCl (Minipress) 5 mg PO Q12HR PRN PRN Reason: BLOODPRESSURE Sodium Chloride (Sodium Chloride Flush Syringe 10 Ml) 10 ml IV BID [facility] Last Admin: 11/16/17 22:09 Dose: 10 ml Sodium Chloride (Sodium Chloride Flush Syringe 10 Ml) 10 ml IV PRN PRN PRN Reason: LINE FLUSH Tenofovir Disoproxil Fumarate (Viread) 300 mg PO Th [facility] Last Admin: 11/17/17 09:43 Dose: 300 mg Exam - Constitutional Vital Signs: Temp Pulse Resp BP Pulse Ox 98.2 F 80 16 142/68 100 11/17/17 07:25 11/17/17 09:37 11/17/17 09:49 11/17/17 09:37 11/17/17 07:25 - Labs CBC & Chem 7: 11/17/17 06:41 11/16/17 13:51 Lab Results: Laboratory Results - last 24 hr 11/16/17 11/16/17 11/16/17 13:51 13:51 13:51 WBC 5.6 RBC 1.49 L Hgb 4.4 L* Hct 14.3 L* MCV 96 MCH 30 MCHC 31 RDW 21.1 H Plt Count 136 L Lymph % (Auto) 17.8 [place]rus % (Auto) 5.4 Eos % (Auto) 0.7 Baso % (Auto) 2.2 H Lymph # 1.0 L [place] # 0.3 Eos # 0.0 Baso # 0.1 Seg Neutrophils % 73.9 H Seg Neutrophils # 4.1 PT 17.9 H INR 1.39 H APTT 34.6 Sodium 139 Potassium 3.5 L Chloride 96.7 L Carbon Dioxide 30 Anion Gap 16 BUN 25 H Creatinine 5.6 H Estimated GFR 9 BUN/Creatinine Ratio 4 Glucose 92 Calcium 8.0 L Total Bilirubin 0.20 AST 23 ALT 7 Alkaline Phosphatase 92 Total Protein 5.3 L Albumin 2.5 L Albumin/Globulin Ratio 0.9 Lipase 22 TSH Blood Type Antibody Screen Crossmatch 1011/16/17 11/17/17 13:51 14:04 04:55 WBC RBC Hgb 7.5 L D Hct 22.7 L D MCV MCH MCHC RDW Plt Count Lymph % (Auto) [place] % (Auto) Eos % (Auto) Baso % (Auto) Lymph # [place] # Eos # Baso # Seg Neutrophils % Seg Neutrophils # PT INR APTT Sodium Potassium Chloride Carbon Dioxide Anion Gap BUN Creatinine Estimated GFR BUN/Creatinine Ratio Glucose Calcium Total Bilirubin AST ALT Alkaline Phosphatase Total Protein Albumin Albumin/Globulin Ratio Lipase TSH 3.890 Blood Type B POSITIVE Antibody Screen Negative Crossmatch See Detail 11/17/17 06:41 WBC RBC Hgb 7.6 L Hct 23.6 L MCV MCH MCHC RDW Plt Count Lymph % (Auto) [place] % (Auto) Eos % (Auto) Baso % (Auto) Lymph # [place] # Eos # Baso # Seg Neutrophils % Seg Neutrophils # PT INR APTT Sodium Potassium Chloride Carbon Dioxide Anion Gap BUN Creatinine Estimated GFR BUN/Creatinine Ratio Glucose Calcium Total Bilirubin AST ALT Alkaline Phosphatase Total Protein Albumin Albumin/Globulin Ratio Lipase TSH Blood Type Antibody Screen Crossmatch Assessment and Plan 1.anemia 2.rectal bleeding 3.ESRD on HD 4.HTN 5.CHF 6.HIV -H/H 4.4/14.3 on admission- now 7.6/23.6 s/p transfusion PRBCs -continue to monitor H/H and transfuse as needed -hold blood thinning medications -HD stable -patient with h/o multiple episodes of GI bleeding thought to be diverticular in nature who now presents with acute on chronic anemia with recurrent rectal bleeding. She reports multiple episodes of heavy rectal bleeding this past Tuesday/Tuesday mixed with clots which has now resolved with no further active signs of bleeding x 4 days -EGD 10/31 esophagitis and gastritis (Bx negative H pylori/Barretts) -colonoscopy 08/25/17- revealed multiple polyps (TA), extensive diverticulosis of the left colon, and internal hemorrhoids -etiology- likely diverticular -clinically, patient is stable. Denies abd pain or N/V. Tolerating diet -continue current medications and supportive care -no recommendations for repeat endoscopic at this time -if bleeding reoccurs recommend bleeding scan (may need IR intervention vs surgery consult) -if no further bleeding and labs remain stable, patient is okay to be d/c per GI standpoint with follow up clinic appt
[2017-11-17] MEDS ORDERED: SUSTIVA PO SCH ×2 (10:00→22:00)
[2017-11-17] MEDS ORDERED: PROTONIX PO SCH (10:00)
[2017-11-17] MEDS ORDERED: VIREAD PO SCH (10:00)
[2017-11-17] MEDS ORDERED: NON-FORMULARY (B Complex 11/Folic/C/Biot/Zinc [Dialyvite With Zinc Tablet] 1 EACH) PO SCH (10:00)
[2017-11-17] MEDS: SODIUM CHLORIDE FLUSH SYRINGE 10 ML IV SCH ×2 (10:00→21:20)
[2017-11-17] MEDS ORDERED: EFAVIRENZ 600 MG PO SCH (10:00)
--- NOTE | 2017-11-17 11:10 | Consultation ---
History of Present Illness - Reason for Consult Consult date: 11/17/17 end stage renal disease Requesting physician: BHUPINDER SCHRADER - History of Present Illness 67-year-old female presents to the emergency department via EMS from dialysis and was sent here secondary to having low hemoglobin. She is normally end-stage renal disease on hemodialysis on Tuesday/Tuesday/Tuesday and says that she did last have it on Tuesday. Her ocean forwarder is Dr. Vegas. She has a past medical history as well of CHF, GERD, HIV, hypertension. She complains of some generalized weakness. She also has the complaint of some mild shortness of breath. She denies any fever, chest pain, nausea, vomiting. There is some mild lower external swelling. No recent travel or sick contacts at home. - Past Medical History Hx Hypertension: Yes Hx Heart Attack/AMI: No Hx Congestive Heart Failure: Yes Hx Diabetes: No Hx GERD: Yes Hx Liver Disease: Yes (abnormal liver function test, coagulopathy, mass on liver ) Hx Renal Disease: Yes (M, W, F) Hx Arthritis: No Hx Asthma: No Hx COPD: No Hx HIV: Yes - Surgical History Hx Coronary Stent: No Hx Open Heart Surgery: No Hx Pacemaker: No Hx Internal Defibrillator: No Hx Cholecystectomy: No Hx Appendectomy: Yes Hx Breast Surgery: No Additional Surgical History: PD catheter -removed. FISTULA LEFT ARM - Social History Smoking Status: Former Smoker ROS: Stated complaint: WEAKNESS Other details as noted in HPI Comment: All other systems reviewed and negative Constitutional: denies: chills, fever Eyes: denies: eye pain, eye discharge, vision change ENT: denies: ear pain, throat pain Respiratory: shortness of breath. denies: cough Cardiovascular: edema. denies: chest pain Gastrointestinal: denies: nausea, vomiting Genitourinary: denies: dysuria, discharge Musculoskeletal: denies: back pain, arthralgia Skin: denies: rash, lesions Neurological: denies: headache, numbness Past History Past Medical History: ESRD, GERD, heart failure, HIV/AIDS, hypertension Past Surgical History: appendectomy, Other (colonoscopy, LUE AVF, removal of PD catheter) Social history: , lives with family. denies: smoking, alcohol abuse, prescription drug abuse Family history: hypertension Medications and Allergies Allergies Allergy/AdvReac Type Severity Reaction Status Date / Time codeine Allergy HALLUCINATE Verified 08/18/17 17:25 morphine Allergy hallucinati Verified 08/24/17 00:04 on hydralazine AdvReac Vomiting Verified 08/18/17 17:25 Home Medications Medication Instructions Recorded Confirmed Last Taken Type Efavirenz [Sustiva] 600 mg PO DAILY 03/18/16 11/16/17 11/15/17 History Terazosin [Hytrin] 10 mg PO BID PRN 03/18/16 11/16/17 11/15/17 History Tenofovir [Viread] 300 mg PO QWEEK 08/30/16 11/16/17 09/01/17 History Fluticasone [Flonase] 1 spray NS QDAY #1 bottle 07/27/17 11/16/17 Unknown Rx B Complex 11/Folic/C/Biot/Zinc 1 each PO QDAY 08/23/17 11/16/17 11/15/17 History [Dialyvite with Zinc Tablet] lamiVUDine [Epivir] 150 mg PO QPM 08/23/17 11/16/17 11/15/17 History Calcium Acetate [Phoslo] 1,334 mg PO TIDWM 09/06/17 11/16/17 11/15/17 History cloNIDine [Catapres] 0.2 mg PO QID 09/06/17 11/16/17 11/16/17 History Pantoprazole [Protonix TAB] 40 mg PO DAILY #30 tablet 09/09/17 11/16/17 Rx Minoxidil [Loniten] 10 mg PO BID PRN 11/16/17 11/16/17 11/15/17 History Active Meds: Active Medications Acetaminophen (Tylenol) 650 mg PO Q4H PRN PRN Reason: Pain MILD(1-3)/Fever >100.5/SAEED Albuterol (Proventil) 2.5 mg IH Q4HRT PRN PRN Reason: Shortness Of Breath Calcium Acetate (Phoslo) 1,334 mg PO TIDWM [facility] Last Admin: 11/17/17 08:30 Dose: 1,334 mg Clonidine HCl (Catapres) 0.2 mg PO QID [facility] Last Admin: 11/17/17 09:37 Dose: 0.2 mg Efavirenz (Sustiva) 600 mg PO QHS [facility] Fluticasone Propionate (Flonase) 50 mcg NS QDAY [facility] Hydromorphone HCl (Dilaudid) 0.25 mg IV Q3H PRN PRN Reason: Pain , Severe (7-10) Last Admin: 11/17/17 09:49 Dose: 0.25 mg Lamivudine (Epivir) 50 mg PO QPM [facility] Minoxidil (Loniten) 10 mg PO BID PRN PRN Reason: Blood Pressure Multivit/Ca Carb/B Cmplx/FA/Prenat (Renal Caps) 1 cap PO QDAY [facility] Last Admin: 11/17/17 09:37 Dose: 1 cap Ondansetron HCl (Zofran) 4 mg IV Q8H PRN PRN Reason: Nausea And Vomiting Pantoprazole Sodium (Protonix) 40 mg IV BID [facility] Last Admin: 11/17/17 09:38 Dose: 40 mg Prazosin HCl (Minipress) 5 mg PO Q12HR PRN PRN Reason: BLOODPRESSURE Sodium Chloride (Sodium Chloride Flush Syringe 10 Ml) 10 ml IV BID [facility] Last Admin: 11/16/17 22:09 Dose: 10 ml Sodium Chloride (Sodium Chloride Flush Syringe 10 Ml) 10 ml IV PRN PRN PRN Reason: LINE FLUSH Tenofovir Disoproxil Fumarate (Viread) 300 mg PO Th [facility] Last Admin: 11/17/17 09:43 Dose: 300 mg Exam - Vital Signs Vital signs: Vital Signs Temp Pulse Resp BP Pulse Ox 98.7 F 85 20 128/68 100 11/16/17 13:41 11/16/17 13:41 11/16/17 13:41 11/16/17 13:41 11/16/17 13:41 - Physical Exam Narrative exam: GENERAL: The patient is well-developed well-nourished. HENT: Normocephalic. Atraumatic. Patient has moist mucous membranes. EYES: Extraocular motions are intact. Pupils equal reactive to light bilaterally. NECK: Supple. Trachea is midline. CHEST/LUNGS: Mild coarse breath sounds. No tachypnea or accessory muscle use. There is no respiratory distress noted. HEART/CARDIOVASCULAR: Regular. There is no tachycardia. There is no murmur. ABDOMEN: Abdomen is soft. Patient has normal bowel sounds. There is no abdominal distention. SKIN: Skin is warm and dry. Mild lower extremity swelling. NEURO: The patient is awake, alert, and oriented. The patient is cooperative. The patient has no focal neurologic deficits. The patient has normal speech. MUSCULOSKELETAL: There is no tenderness or deformity. There is no evidence of acute injury. Results - Lab Results 11/17/17 06:41 11/16/17 13:51 Most recent lab results Calcium 8.0 mg/dL (8.4-10.2) L 11/16/17 13:51 Assessment and Plan Impression * End-stage renal disease * Symptomatic anemia of abl poa * gi bleeding * Hypertension * HIV disease Recommendations * prn packed RBC transfusion--rec 1 unit today with hd * Continue dialysis on today, then MWF schedule as outpatient * No IV, BP or of any puncture in access arm * no heparin with hd, epogen with hd * Further plans as per GI services * Hold PO4 binders for now * adjust diet and meds for ESRD state
[2017-11-17] MEDS ORDERED: NACL 0.9% 100 ML IV PRN (11:13)
[2017-11-17] MEDS ORDERED: ALBURX 25% (ALBUMIN) IV PRN (11:13)
[2017-11-17] MEDS ORDERED: NACL 0.9% 500 ML 500 ML IV SCH (12:00)
[2017-11-17] MEDS ORDERED: EPIVIR PO SCH (18:00)
[2017-11-18] MEDS: DILAUDID IV PRN ×2 (00:12→11:57)
[2017-11-18] MEDS: CATAPRES PO SCH (00:27)
[2017-11-18 04:55] LABS: Hematocrit 31.7 % (30.3-42.9); Hemoglobin 10.5 gm/dl (10.1-14.3); Mean Corpuscular HGB Conc 33 % (30-34); Mean Corpuscular Hemoglobin 30 pg (28-32); Mean Corpuscular Volume 89 fl (79-97); Platelet Count 124 K/mm3 (140-440); Red Blood Count 3.56 M/mm3 (3.65-5.03); Red Cell Distribution Width 17.6 % (13.2-15.2)
[2017-11-18 05:11] LABS: Calcium 8.2 mg/dL (8.4-10.2)
--- NOTE | 2017-11-18 07:46 | Discharge Summary ---
Providers - Providers Date of Admission: 11/16/17 15:16 Attending physician: HOLA RDZ MD 11/16/17 15:17 Consult to Physician [CONS] Routine Comment: JAMAL AKBAR NOTIFIED [id number] Consulting Provider: ARGELIA FRAIRE Physician Instructions: Reason For Exam: esrd 11/16/17 17:07 Consult to Physician [CONS] Routine Comment: called answ. serv./yudelka Consulting Provider: ARNAV ARNOLD Physician Instructions: Reason For Exam: GI Bleed/Anemia Primary care physician: [employer]OC[employer] PHILOSOPHY Hospitalization Reason for admission: symptomatic anemia Condition: Fair Hospital course: 67 YO Female with HTN, Diastolic CHF, GERD, ESRD on HD (M,W,F), HIV Disease, Diverticulosis presents to ED for evaluation with a prior admission of Rectal bleeding which was heavy a the time but did not require transfusion and stopped. Had undergone a colonosocopy with polypectomy and no clear identification of the bleeding source, with recommendation to follow with GI outpatient presents via EMS after she was noted during routine dialysis to have a hgb of 4. She also reported generalized weakness, shortness of breath, and decreased exercise tolerance over the past 2 weeks. Pt seen and evaluated in ED and found to have ESRD complicated by Symptomatic anemia. Nephrology consulted in ED. GI consulted in ED. Patient denies fever, chills, CP, Palpitations, NVD, Trauma, unintentional weight loss, night sweats, BRBPR, productive cough, or recent ill contacts. Patient recieved 4 units of PRBC with improvement in hemoglobin. She remained tachycardia and was started on low dose beta owen with recommendation for outpatient cardiology to ensure resolution, as the equilibration and also missed dialysis which led to vascular congestion could be part of the etiology. She was seen by GI with concern for diverticular bleed and recommended to have a scan next time there is a bleed. she had dialysis with 500cc only removed. Discharge Diagnosis Symptomatic Anemia Severe Blood loss anemia with Diverticular bleed Diverticular bleed ESRD Hypertensive Urgency- Resolved Tachycardia Acute on chronic Diastolic Congestive Heart failure Moderate to severe protein calorie Malnutrition Secondary Hypercoagluable state HIV HTN Disposition: TO HOME OR SELFCARE Time spent for discharge: 35 mins Core Measure Documentation - Palliative Care Palliative Care/ Comfort Measures: Not Applicable - Core Measures Any of the following diagnoses?: none Exam - Physical Exam Narrative exam: VITAL SIGNS: Reviewed. GENERAL: The patient appeared well nourished and normally developed. Vital signs as documented. HEAD: No signs of head trauma. EYES: Pupils are equal. Extraocular motions intact. EARS: Hearing grossly intact. MOUTH: Oropharynx is normal. NECK: No adenopathy, no JVD. CHEST: Chest with clear breath sounds bilaterally. No wheezes, rales, or rhonchi. CARDIAC: Regular rhythm. S1 and S2, without murmurs, gallops, or rubs. VASCULAR: No Edema. Peripheral pulses normal and equal in all extremities. ABDOMEN: Soft, without detectable tenderness. No sign of distention. No rebound or guarding, and no masses palpated. Bowel Sounds normal. MUSCULOSKELETAL: Good range of motion of all major joints. Extremities without clubbing, cyanosis or edema. NEUROLOGIC EXAM: Alert and oriented x 3. No focal sensory or strength deficits. Speech normal. Follows commands. PSYCHIATRIC: Mood normal. SKIN: Left arm AVF. - Constitutional Vitals: Temp Pulse Resp BP Pulse Ox 98.7 F 121 H 20 143/67 100 11/18/17 02:25 11/18/17 02:27 11/18/17 02:27 11/18/17 02:27 11/18/17 02:27 Plan Activity: advance as tolerated, fall precautions Diet: diabetic, renal Special Instructions: record daily BP diary, record blood sugar diary Follow up with: JOSSUE PALMER MD [Primary Care Provider] - 3-5 Days CAITY ROCKWELL MD [Staff Physician] - 7 Days ZEN SIMON MD [Staff Physician] - 7 Days Prescriptions: Carvedilol [Coreg] 3.125 mg PO BID #60 tablet
[2017-11-18] MEDS: PHOSLO PO SCH ×2 (08:34→11:55)
[2017-11-18] MEDS: PROTONIX PO SCH ×2 (09:35→16:18)
[2017-11-18] MEDS: COREG PO SCH ×2 (09:35→16:47)
[2017-11-18] MEDS: FLONASE NS SCH (09:35)
[2017-11-18] MEDS: SODIUM CHLORIDE FLUSH SYRINGE 10 ML IV SCH (09:36)
[2017-11-18] MEDS: Renal Caps PO SCH (09:36)
--- NOTE | 2017-11-18 09:46 | Progress Note ---
Assessment and Plan Impression * End-stage renal disease * Symptomatic anemia of abl poa * gi bleeding * Hypertension * HIV disease Recommendations * prn packed RBC transfusion * Continue dialysis MWF schedule as outpatient * No IV, BP or of any puncture in access arm * no heparin with hd, epogen with hd * Further plans as per GI services * Hold PO4 binders for now * adjust diet and meds for ESRD state * ok to dc after HD today Subjective Date of service: 11/18/17 Principal diagnosis: anemia, rectal bleeding Interval history: resting in bed today Objective - Exam Narrative Exam: GENERAL: The patient is well-developed well-nourished. HENT: Normocephalic. Atraumatic. Patient has moist mucous membranes. EYES: Extraocular motions are intact. Pupils equal reactive to light bilaterally. NECK: Supple. Trachea is midline. CHEST/LUNGS: Mild coarse breath sounds. No tachypnea or accessory muscle use. There is no respiratory distress noted. HEART/CARDIOVASCULAR: Regular. There is no tachycardia. There is no murmur. ABDOMEN: Abdomen is soft. Patient has normal bowel sounds. There is no abdominal distention. SKIN: Skin is warm and dry. Mild lower extremity swelling. NEURO: The patient is awake, alert, and oriented. The patient is cooperative. The patient has no focal neurologic deficits. The patient has normal speech. MUSCULOSKELETAL: There is no tenderness or deformity. There is no evidence of acute injury. - Vital Signs Vital signs: Vital Signs - 12hr 11/18/17 11/18/17 11/18/17 00:12 00:19 00:27 Temperature 98.7 F Pulse Rate 119 H 113 H Respiratory 20 20 Rate Blood Pressure 209/96 209/96 O2 Sat by Pulse 100 Oximetry 11/18/17 11/18/17 11/18/17 00:41 00:42 00:57 Temperature 98.6 F Pulse Rate 110 H 106 H Respiratory 20 20 Rate Blood Pressure 180/83 O2 Sat by Pulse 100 Oximetry 11/18/17 11/18/17 11/18/17 01:04 01:34 01:45 Temperature 98.6 F 98.7 F Pulse Rate 110 H 100 H 115 H Respiratory 20 20 20 Rate Blood Pressure 176/86 123/62 138/60 O2 Sat by Pulse 100 99 100 Oximetry 11/18/17 11/18/17 11/18/17 02:07 02:25 02:27 Temperature 97.6 F 98.7 F Pulse Rate 124 H 121 H Respiratory 18 20 Rate Blood Pressure 129/67 143/67 O2 Sat by Pulse 100 100 Oximetry 11/18/17 08:00 Temperature 98.6 F Pulse Rate 125 H Respiratory 18 Rate Blood Pressure 146/75 O2 Sat by Pulse 99 Oximetry - Lab 11/18/17 02:39 11/18/17 02:39 Most recent lab results Calcium 8.2 mg/dL (8.4-10.2) L 11/18/17 02:39
[2017-11-18] MEDS ORDERED: NACL 0.9 (PRIMING MACHINE ONLY DIALYSIS) MC ONE ×2 (11:55→20:22)
[2017-11-18] MEDS ORDERED: CATAPRES PO SCH (14:00)
[2017-11-18 15:46] VITALS: BP 190/84
== END 2017-11-18 17:26 | disposition home or self-care (01) | DRG 377 ==
LOC: ED 13:38 → 2B-ACE 15:16
PROVIDERS: ADMIT Internal Medicine; ATTEND Internal Medicine
PROC: 30233N1 Transfusion of Nonautologous Red Blood Cells into Peripheral Vein, Percutaneous Approach (ICD-10-PCS; principal; 2017-11-16)
PROC: 5A1D70Z Performance of Urinary Filtration, Intermittent, Less than 6 Hours Per Day (ICD-10-PCS; 2017-11-17)
PROC: 5A1D70Z Performance of Urinary Filtration, Intermittent, Less than 6 Hours Per Day (ICD-10-PCS; 2017-11-18)
DX: K57.93 Diverticulitis of intestine, part unspecified, without perforation or abscess with bleeding (principal); N18.6 End stage renal disease; E43 Unspecified severe protein-calorie malnutrition; I50.33 Acute on chronic diastolic (congestive) heart failure; B20 Human immunodeficiency virus [HIV] disease; D62 Acute posthemorrhagic anemia; D68.59 Other primary thrombophilia; I13.2 Hypertensive heart and chronic kidney disease with heart failure and with stage 5 chronic kidney disease, or end stage renal disease; K62.5 Hemorrhage of anus and rectum; I16.0 Hypertensive urgency; K21.9 Gastro-esophageal reflux disease without esophagitis; D63.1 Anemia in chronic kidney disease; Z99.2 Dependence on renal dialysis; Z82.49 Family history of ischemic heart disease and other diseases of the circulatory system; Z88.5 Allergy status to narcotic agent; Z88.6 Allergy status to analgesic agent; Z88.8 Allergy status to other drugs, medicaments and biological substances; Z90.49 Acquired absence of other specified parts of digestive tract; Z87.891 Personal history of nicotine dependence; Z68.21 Body mass index [BMI] 21.0-21.9, adult
CPT/HCPCS: 36415; 36430; 71045; 80048; 80053; 83690; 84443; 85014; 85018; 85025; 85027; 85610; 85730; 86850; 86900; 86901; 86920; 93005; 93010; 94760; 96374; C9113; J1170; J1940; J7030; J7040; P9016